=== PATIENT | female | born 1960 | race Caucasian/White ===

== ENCOUNTER → 2016-05-03 | Outpatient (CLI) | payer MEDICARE ==
[~2016-05-03] MED LIST: AMIT25TA PO; AMIT50TA PO; ATROPINE SULF 1MG/10ML SYRINGE (J0461) As Ordered ONE; CELE-19 PO; CYCL5TA PO; DAILTAB49 PO; DEPA1TAB PO; DEPA500T2 PO; DHEA50TA PO; GREE250C PO; IBUP800T23 PO; IBUP80TA PO; ISOVUE-M 300 61% 15ML VIAL (Q9967) As Ordered ONE; LIDOCAINE 1% SDV INJ 30 ML VIAL As Ordered ONE; MOBI7.5T10 PO; NEPHTAB PO; TIZA2CAP3 PO; TOPA25TA10 PO; methylPREDNISolone SUSP 40 MG/ML (DEPO-medrol) VIAL (J1030) As Ordered ONE
--- NOTE | 2016-05-03 11:37 | REP ---
Partial cervical spine series: Two views. History: Pain. Injection procedure. 14 seconds of fluoroscopy time is reported. Findings: A sequence of three fluoroscopically obtained last minute hold spot radiographs are presented documenting needle position and contrast injection associated with cervical epidural injection procedure. The patient is status post ventral discectomy and fusion plating. Signed by Rian Johnson MD 05/03/2016 02:24 P
--- NOTE | 2016-05-08 00:28 | ECWPNPC ---
PATIENT NAME: BREEZY REDDY : 1960 GENDER: FEMALE VISIT DATE: 05/03/2016 DISCHARGE DATE: 05/03/16 1049 VISIT LOCKED DATE TIME: PHYSICIAN: LATIA LOPEZ RESOURCE: LATIA LOPEZ REASON FOR APPOINTMENT 1. CERVICAL EPIDURAL HISTORY OF PRESENT ILLNESS HISTORY OF PRESENT ILLNESS: PAIN THE PATIENT DESCRIBES THE PAIN... FALL RISK SCREENING: SCREENING :NO FALLS IN THE PAST YEAR CURRENT MEDICATIONS TAKING MULTIVITAMIN 1 CAP(S) ORALLY DAILY TAKING GREEN TEA 400 MG CAPSULE ORALLY BID TAKING IBUPROFEN 800 MG TABLET 1 TABLET WITH FOOD ORALLY THREE TIMES A DAY FOR PAIN TAKING TIZANIDINE HCL 4 MG TABLET 1 TABLET ORALLY TID NEEDED FOR SPASMS AND PAIN MDD3 TAKING AMITRIPTYLINE HCL 50 MG TABLET 1 TABLET ORALLY EVERY 8 HRS NEEDED FOR PAIN MDD2 TAKING GABAPENTIN 300 MG CAPSULE 1 CAPSULE ORALLY BEFORE BEDTIME FOR PAIN NOT-TAKING DEPAKOTE ER 500 MG TABLET EXTENDED RELEASE 24 HOUR ORALLY BID PAST MEDICAL HISTORY MIGRANES ALLERGIES PENICILLIN (FOR ALLERGIES USE ONLY): RASH SOCIAL HISTORY GENERAL: TOBACCO USE ARE YOU A:NONSMOKER LEARNING BARRIERS / SPECIAL NEEDS ORIENTED TO PLAN OF CARE: PATIENT, PAIN MANAGEMENT PATIENT, ORIENTED TO PLAN OF CARE: PATIENT, PAIN MANAGEMENT PATIENT. NEW PATIENT PAIN DIARY TODAY'S VISITNOTES FROM 0-10, WHAT LEVEL IS YOUR PAIN TODAY?0 PAIN CLINIC PFS, CLERGY, PUBLIC HEALTH REFERRALS PFS REFERRAL NEEDED?NO CLERGY REFERRAL NEEDED?NO PUBLIC HEALTH REFERRAL NEEDED?NO WAS THE PROVIDER NOTIFIED OF ANY PERTINENT INFO?NO PFS REFERRAL NEEDED?NO CLERGY REFERRAL NEEDED?NO PUBLIC HEALTH REFERRAL NEEDED?NO WAS THE PROVIDER NOTIFIED OF ANY PERTINENT INFO?NO REVIEW OF SYSTEMS CONSTITUTIONAL: ANY CHANGE IN YOUR MEDICAL CONDITION? NO . CHILLS NO . FEVER NO . INFECTION: DO YOU HAVE NEW INFECTIONS? NO . DO YOU HAVE HISTORY OF MRSA? NO . MUSCULOSKELETAL: ANY NEW PATTERNS OF PAIN OR NUMBNESS? NO . GASTROENTEROLOGY: ANY NEW CHANGE IN BOWEL CONTROL? NO . GENITOURINARY: ANY NEW CHANGE IN BLADDER CONTROL? NO . IS THERE A CHANCE YOU COULD BE ? NO . HEMATOLOGY/LYMPH: DO YOU TAKE ANY BLOOD THINNERS? (FOR EXAMPLE- COUMADIN, PLAVIX, AGGRENOX, PLATEL, PRADAXA, OR XARELTO) NO . WHEN WAS YOUR LAST DOSE? DATE: TIME: . NEUROLOGY: HAVE YOU FALLEN IN THE PAST 6 MONTHS? NO . ANY NEW EXTREMITY NUMBNESS OR WEAKNESS? NO . CARDIOLOGY: DO YOU HAVE A PACEMAKER OR DEFIBRILLATOR? NO . RESPIRATORY: HAVE YOU BEEN SICK IN THE PAST WEEK? NO . FEVER NO . FLU LIKE SYMPTOMS? NO . COUGH NO . INTEGUMENTARY: DO YOU HAVE ANY RASHES OR OPEN SORES? NO . ALLERGIC/IMMUNO: ARE YOU ALLERGIC TO SHELLFISH OR IV DYE? NO . ANY NEW ALLERGIES? NO . PSYCHIATRIC: DO YOU HAVE THOUGHTS OF HURTING YOURSELF OR SOMEONE ELSE? NO . ARE YOU ABUSED, NEGLECTED, OR IN AN UNSAFE ENVIRONMENT? NO . ENDOCRINOLOGY: ARE YOU DIABETIC? NO . OTHER: DO YOU NEED ANY PRESCRIPTIONS? NO . IF YES, PLEASE LIST: ____ . ANY NEW PROBLEMS WITH YOUR MEDICATIONS? NO . WHEN DID YOU LAST EAT? ____05/02/16@2100 . WHEN DID YOU LAST DRINK? ____05/02/16@2100 . WHAT DID YOU LAST DRINK? ____WATER . NAME OF PERSON DRIVING YOU HOME? ____RADHA SELF . DO YOU HAVE ANY OTHER QUESTIONS OR CONCERNS NO . REVIEWED BY: PROVIDER: . VITAL SIGNS WT 198 LBS, HT 66 IN, BMI 31.95 INDEX, BP 182/89 MM HG, REPEAT BP 149/83 MM HG, HR 91 /MIN, RR 18 /MIN, TEMP 96.4 F, OXYGEN SAT % 99, NA INITIALS MP, REVIEWED BY: VD. ASSESSMENTS CERVICAL DISC DISORDER WITH RADICULOPATHY, CERVICOTHORACIC REGION - M50.13 (PRIMARY) PROCEDURES PN CERVICAL EPIDURAL PRE PROCEDURE DIAGNOSIS CERVICAL POST LAMINECTOMY PAIN SYNDROME POST PROCEDURE DIAGNOSIS CERVICAL POST LAMINECTOMY PAIN SYNDROME PROCEDURE CERVICAL EPIDURAL STEROID INJECTION UNDER FLUOROSCOPIC GUIDANCE SURGEON DR. LATIA LOPEZ OCEANOGRAPHER ASSISTANT NONE ANESTHESIA LOCAL PRE PROCEDURE NOTE THE PATIENT HAS A HISTORY OF CHRONIC CERVICAL PAIN. I EVALUATE THE PATIENT AND REVIEWED THE CHART. I WENT OVER THE RISKS, ALTERNATIVES, AND BENEFITS ASSOCIATED WITH THIS PROCEDURE. THE PATIENT WOULD LIKE TO PROCEED AND GIVE CONSENT TO PERFORMED THE PROCEDURE. THE PATIENT DENIES UNEXPLAINABLE WEIGHT LOSS, FEVER, CHILLS, OR NEW CHANGES IN URINARY OR BOWEL CONTROL DESCRIPTION OF PROCEDURE THE PATIENT WAS BROUGHT TO THE PROCEDURE ROOM AND PLACED IN THE PRONE POSITION. THE CERVICOTHORACIC AREA WAS CLEANED WITH BETADINE SOLUTION AND DRAPED ASEPTICALLY. THE PROCEDURE WAS DONE UNDER STERILE CONDITIONS. I CHECKED LATERALITY AND THE LEVEL WHERE THE PROCEDURE WAS GOING TO BE PERFORMED WITH THE PATIENT AND THE SUPPORTING STAFF AT THE MOMENT OF THE TIME OUT IN THE PROCEDURE ROOM. UNDER FLUOROSCOPIC GUIDANCE, THE TARGET WAS SELECTED AT THE INTERLAMINAR LEVEL OF C7-T1. LIDOCAINE WAS USED TO NUMB THE SKIN AND THE SUBCUTANEOUS TISSUE BELOW IT. EPIDURAL TUOHY NEEDLE 17-GAUGE WAS ADVANCED UNDER FLUOROSCOPIC GUIDANCE AND FOLLOWING PATIENT FEEDBACK UNTIL THE EPIDURAL SPACE WAS REACHED 6 CM DEEP INTO THE SKIN BY THE LOSS OF RESISTANCE TECHNIQUE. ISOVUE M DYE 30%, 0.25 ML, WAS INJECTED SHOWING ADEQUATE SPREAD OF THE DYE. THEN, A SOLUTION OF 3 ML OF NORMAL SALINE WITH DEPO-MEDROL 60 MG WAS INJECTED SLOWLY FOLLOWING PATIENT FEEDBACK. THERE WAS NO EVIDENCE OF BLOOD, PARESTHESIA OR CEREBROSPINAL FLUID DURING THE PROCEDURE. THE PATIENT WAS SENT TO THE RECOVERY ROOM. THE PATIENT WAS MOVING THE EXTREMITIES AND DOING WELL. THERE WAS NO COMPLICATION DURING THE PROCEDURE. FLUOROSCOPY TIME WAS 14 SECONDS POST PROCEDURE NOTE THE PATIENT WILL BE SEEN IN A FOLLOW UP IN THE NEXT FEW WEEKS. INSTRUCTIONS WERE GIVEN, QUESTIONS WERE ANSWERED, AND THE PATIENT EXPRESSED UNDERSTANDING AND AGREES WITH THE PLAN. I, NAVARRO GRACIA, DOCUMENTED THE ABOVE INFORMATION ACTING A SCRIBE FOR DR. LOPEZ. I, DR. LOPEZ, HAVE REVIEWED THE ABOVE DOCUMENT, SCRIBED BY NAVARRO GRACIA, AND I VERIFY THAT IT IS ACCURATE DIAGNOSTIC IMAGING [facility] FLUORO GUIDE SPINE INJECTION (PAIN)[id number] PROCEDURE CODES 89644 CERVICAL/THORACIC W/ IMAGING 6045F RADXPS IN END [id number] PXD FOLLOW UP 3 WEEKS ELECTRONICALLY SIGNED BY LATIA LOPEZ MD ON 05/07/2016 AT 08:26 PM EST DISCLAIMER : THIS IS A VISIT SUMMARY EXTRACTED FROM THE [employer] CHART. IT IS NOT A COPY OF THE [employer] PROGRESS NOTE. MTDD
== END ==
LOC: M PAIN 09:10
PROVIDERS: ATTEND Anesthesiology
DX: G89.29 Other chronic pain (principal); M50.13 Cervical disc disorder with radiculopathy, cervicothoracic region; G43.909 Migraine, unspecified, not intractable, without status migrainosus; Z79.899 Other long term (current) drug therapy; Z88.0 Allergy status to penicillin
CPT/HCPCS: 62321; J1030; Q9967

== ENCOUNTER → 2016-10-06 | Outpatient (CLI) | payer MEDICARE ==
[~2016-10-06] MED LIST changes: -ATROPINE SULF 1MG/10ML SYRINGE (J0461) As Ordered ONE; -CELE-19 PO; +CELE1CAP4 PO; +IBUP1TAB7 PO; -IBUP800T23 PO; -ISOVUE-M 300 61% 15ML VIAL (Q9967) As Ordered ONE; -LIDOCAINE 1% SDV INJ 30 ML VIAL As Ordered ONE; +MOBI4TAB PO; -MOBI7.5T10 PO; +TOPA1TAB PO; -TOPA25TA10 PO; -methylPREDNISolone SUSP 40 MG/ML (DEPO-medrol) VIAL (J1030) As Ordered ONE
--- NOTE | 2016-10-17 00:47 | ECWPNPC ---
PATIENT NAME: BREEZY REDDY : 1960 GENDER: FEMALE VISIT DATE: 10/06/2016 DISCHARGE DATE: 10/06/16 1538 VISIT LOCKED DATE TIME: PHYSICIAN: LATIA LOPEZ RESOURCE: LATIA LOPEZ REASON FOR APPOINTMENT 1. NECK PAIN HISTORY OF PRESENT ILLNESS HISTORY OF PRESENT ILLNESS: PAIN THE PATIENT DESCRIBES THE PAIN... 56 YEAR OLD FEMALE PATIENT WITH HISTORY OF CHRONIC NECK PAIN. PATIENT DESCRIBES THE PAIN BURNING, TENDER, SORE, AND HAVING IT ALL THE TIME WITH A PAIN SCORE OF 9/10. PATIENT RECEIVED A CERVICAL EPIDURAL ON 05/03/16 AND REPORTS HAVING OVER 50% RELIEF FROM PAIN AND INCREASED MOBILITY AND FUNCTIONALITY UNTIL THE END OF JULY. AT THIS TIME THE PATIENT STATES SHE IS READY FOR ANOTHER INJECTION HER ARMS AND HANDS ARE GOING NUMB AND HAVE A TINGLY SENSATION. CURRENTLY THE PATIENT IS USING IBUPROFEN, GABAPENTIN, AMITRIPTYLINE, AND TIZANIDINE TO AID IN PAIN RELIEF. PATIENT DENIES UNEXPLAINABLE WEIGHT LOSS, FEVER, CHILLS, NEW CHANGES ON HER URINARY OR BOWEL CONTROL. FALL RISK SCREENING: SCREENING :NO FALLS IN THE PAST YEAR CURRENT MEDICATIONS TAKING MULTIVITAMIN 1 CAP(S) ORALLY DAILY TAKING IBUPROFEN 800 MG TABLET 1 TABLET WITH FOOD ORALLY THREE TIMES A DAY FOR PAIN TAKING GABAPENTIN 300 MG CAPSULE 1 CAPSULE ORALLY BEFORE BEDTIME FOR PAIN TAKING AMITRIPTYLINE HCL 50 MG TABLET 1 TABLET ORALLY EVERY 8 HRS NEEDED FOR PAIN MDD2 TAKING TIZANIDINE HCL 4 MG TABLET 1 TABLET ORALLY TID NEEDED FOR SPASMS AND PAIN MDD3 DISCONTINUED GREEN TEA 400 MG CAPSULE ORALLY BID DISCONTINUED DEPAKOTE ER 500 MG TABLET EXTENDED RELEASE 24 HOUR ORALLY BID MEDICATION LIST REVIEWED AND RECONCILED WITH THE PATIENT PAST MEDICAL HISTORY MIGRANES ALLERGIES PENICILLIN (FOR ALLERGIES USE ONLY): RASH REVIEW OF SYSTEMS REVIEWED BY: PROVIDER: LATIA LOPEZ MD . CONSTITUTIONAL: ANY CHANGE IN YOUR MEDICAL CONDITION? NO . CHILLS NO . FEVER NO . INFECTION: DO YOU HAVE NEW INFECTIONS? NO . DO YOU HAVE HISTORY OF MRSA? NO . MUSCULOSKELETAL: ANY NEW PATTERNS OF PAIN OR NUMBNESS? NO . GASTROENTEROLOGY: ANY NEW CHANGE IN BOWEL CONTROL? NO . GENITOURINARY: ANY NEW CHANGE IN BLADDER CONTROL? NO . IS THERE A CHANCE YOU COULD BE ? NO . HEMATOLOGY/LYMPH: DO YOU TAKE ANY BLOOD THINNERS? (FOR EXAMPLE- COUMADIN, PLAVIX, AGGRENOX, PLATEL, PRADAXA, OR XARELTO) NO . WHEN WAS YOUR LAST DOSE? DATE: TIME: . NEUROLOGY: HAVE YOU FALLEN IN THE PAST 6 MONTHS? NO . ANY NEW EXTREMITY NUMBNESS OR WEAKNESS? NO . CARDIOLOGY: DO YOU HAVE A PACEMAKER OR DEFIBRILLATOR? NO . RESPIRATORY: HAVE YOU BEEN SICK IN THE PAST WEEK? NO . FEVER NO . FLU LIKE SYMPTOMS? NO . COUGH NO . INTEGUMENTARY: DO YOU HAVE ANY RASHES OR OPEN SORES? NO . ALLERGIC/IMMUNO: ARE YOU ALLERGIC TO SHELLFISH OR IV DYE? NO . ANY NEW ALLERGIES? NO . PSYCHIATRIC: DO YOU HAVE THOUGHTS OF HURTING YOURSELF OR SOMEONE ELSE? NO . ARE YOU ABUSED, NEGLECTED, OR IN AN UNSAFE ENVIRONMENT? NO . ENDOCRINOLOGY: ARE YOU DIABETIC? NO . OTHER: DO YOU NEED ANY PRESCRIPTIONS? NO . IF YES, PLEASE LIST: ____ . ANY NEW PROBLEMS WITH YOUR MEDICATIONS? NO . WHEN DID YOU LAST EAT? ____ . WHEN DID YOU LAST DRINK? ____ . WHAT DID YOU LAST DRINK? ____ . NAME OF PERSON DRIVING YOU HOME? ____ . DO YOU HAVE ANY OTHER QUESTIONS OR CONCERNS NO . VITAL SIGNS WT 206.2 LBS, HT 66 IN, BMI 33.28 INDEX, BP 143/89 MM HG, HR 58 /MIN, RR 16 /MIN, TEMP 97.4 F, OXYGEN SAT % 99%, NA INITIALS SC 14:36, REVIEWED BY: CONCHIS. EXAMINATION : PATIENT IS ALERT O X 3 AND COOPERATIVE. TENDERNESS IN THE CERVICAL AREA AND TOWARDS THE RIGHT SIDE OF THE SHOULDER. RIGHT ARM IS WEAKER THAN THE LEFT ARM. MRI DONE ON MAY 2014 SHOWS POST LAMINECTOMY CHANGES. ASSESSMENTS POSTLAMINECTOMY SYNDROME, NOT ELSEWHERE CLASSIFIED - M96.1 (PRIMARY) TREATMENT POSTLAMINECTOMY SYNDROME, NOT ELSEWHERE CLASSIFIED REFILL IBUPROFEN TABLET, 800 MG, 1 TABLET WITH FOOD, ORALLY, THREE TIMES A DAY FOR PAIN, 30 DAY(S), 60, REFILLS 2 REFILL GABAPENTIN CAPSULE, 300 MG, 1 CAPSULE, ORALLY, BEFORE BEDTIME FOR PAIN, 30 DAY(S), 30, REFILLS 2 REFILL AMITRIPTYLINE HCL TABLET, 50 MG, 1 TABLET, ORALLY, EVERY 8 HRS NEEDED FOR PAIN MDD2, 30 DAY(S), 60, REFILLS 2 REFILL TIZANIDINE HCL CAPSULE, 6 MG, 1 TABLET, ORALLY, TID NEEDED FOR SPASMS AND PAIN MDD3, 30 DAY(S), 90, REFILLS 2 NOTES: CERVICAL EPIDURAL INJECTION MATERIAL WAS PRINTED. CLINICAL NOTES: WE DISCUSSED SEVERAL ISSUES WITH MRS. REDDY' PAIN MANAGEMENT CASE. AT THIS TIME THE PATIENT WILL CONTINUE WITH THE SAME MEDICATION MANAGEMENT BEFORE. PATIENT WAS REMINDED OF THE SIDE EFFECTS OF USING IBUPROFEN AND AMITRIPTYLINE TOGETHER. PATIENT WAS ADVISED TO STOP THE MEDICATION IF SHE HAD ANY ADVERSE SIDE EFFECTS. I WOULD LIKE TO MOVE FORWARD WITH ANOTHER CERVICAL EPIDURAL THE PATIENT HAD LONG LASTING RELIEF FROM IT. WE DISCUSSED THE RISKS, BENENFITS, AND ALTNERATIVES OF THE INJECTION AND THE PATIENT WOULD LIKE TO PROCEED. INSTRUCTIONS WERE GIVEN, QUESTIONS WERE ANSWERED, PATIENT REPORTS UNDERSTANDING AND AGREES WITH THE PLAN. I, NAVARRO GRACIA, DOCUMENTED THE ABOVE INFORMATION ACTING A SCRIBE FOR DR. LOPEZ. I HAVE REVIEWED THE ABOVE DOCUMENT, WRITTEN BY NAVARRO MUÑOZIBMalena AND I VERIFY THAT IT IS ACCURATE. PROCEDURE CODES FA211 ESTABILISHED PATIENT [facility] CHARGE G8427 DOC MEDS VERIFIED W/PT OR RE G8730 PAIN ASSESS POS TOOL F/U PLAN DOC DISPOSITION & COMMUNICATION FOLLOW UP JUDAH AFTER APPROVAL ELECTRONICALLY SIGNED BY LATIA LOPEZ MD ON 10/16/2016 AT 08:32 PM EDT DISCLAIMER : THIS IS A VISIT SUMMARY EXTRACTED FROM THE [employer] CHART. IT IS NOT A COPY OF THE [employer] PROGRESS NOTE. MTDD
== END ==
LOC: M PAIN 14:20
PROVIDERS: ATTEND Anesthesiology
DX: M96.1 Postlaminectomy syndrome, not elsewhere classified (principal); G43.909 Migraine, unspecified, not intractable, without status migrainosus; Z88.0 Allergy status to penicillin; Z79.1 Long term (current) use of non-steroidal anti-inflammatories (NSAID); Z79.899 Other long term (current) drug therapy

== ENCOUNTER → 2016-10-31 | Outpatient (CLI) | payer MEDICARE ==
[~2016-10-31] MED LIST changes: +ISOVUE-M 300 61% 15ML VIAL (Q9967) As Ordered ONE; +LIDOCAINE 1% SDV INJ 30 ML VIAL As Ordered ONE; +methylPREDNISolone SUSP 40 MG/ML (DEPO-medrol) VIAL (J1030) As Ordered ONE
--- NOTE | 2016-10-31 13:51 | REP ---
FLUORO GUIDED SPINAL INJECTION: The images were reviewed with Dr. Reagan. The patient has a history of neck pain. The portable C-arm is provided in the OR for Dr. Weaver for fluoroscopic guidance. One intraoperative fluoro spot films was obtained for needle placement verification for cervical epidural injection. The film is on the PACS system and is available for review. 6 seconds of fluoroscopy time was utilized for this procedure. Reviewed by AUDRA Webber 10/31/2016 03:02 PEdited and Signed by Davi Reagan MD 10/31/2016 07:16 P
--- NOTE | 2016-11-15 01:28 | ECWPNPC ---
PATIENT NAME: BREEZY REDDY : 1960 GENDER: FEMALE VISIT DATE: 10/31/2016 DISCHARGE DATE: 10/31/16 1023 VISIT LOCKED DATE TIME: PHYSICIAN: LATIA LOPEZ RESOURCE: LATIA LOPEZ REASON FOR APPOINTMENT 1. JUDAH HISTORY OF PRESENT ILLNESS HISTORY OF PRESENT ILLNESS: PAIN THE PATIENT DESCRIBES THE PAIN... FALL RISK SCREENING: SCREENING :NO FALLS IN THE PAST YEAR CURRENT MEDICATIONS TAKING MULTIVITAMIN 1 CAP(S) ORALLY DAILY, NOTES: 10/30/16 0800 TAKING IBUPROFEN 800 MG TABLET 1 TABLET WITH FOOD ORALLY THREE TIMES A DAY FOR PAIN, NOTES: 10/31/16 0530 TAKING GABAPENTIN 300 MG CAPSULE 1 CAPSULE ORALLY BEFORE BEDTIME FOR PAIN, NOTES: 10/30/162129 TAKING AMITRIPTYLINE HCL 50 MG TABLET 1 TABLET ORALLY EVERY 8 HRS NEEDED FOR PAIN MDD2, NOTES: 10/30/162129 TAKING TIZANIDINE HCL 6 MG CAPSULE 1 TABLET ORALLY TID NEEDED FOR SPASMS AND PAIN MDD3, NOTES: 10/30/162129 MEDICATION LIST REVIEWED AND RECONCILED WITH THE PATIENT PAST MEDICAL HISTORY MIGRANES ALLERGIES PENICILLIN (FOR ALLERGIES USE ONLY): RASH REVIEW OF SYSTEMS REVIEWED BY: PROVIDER: . CONSTITUTIONAL: ANY CHANGE IN YOUR MEDICAL CONDITION? NO . CHILLS NO . FEVER NO . INFECTION: DO YOU HAVE NEW INFECTIONS? NO . DO YOU HAVE HISTORY OF MRSA? NO . MUSCULOSKELETAL: ANY NEW PATTERNS OF PAIN OR NUMBNESS? NO . GASTROENTEROLOGY: ANY NEW CHANGE IN BOWEL CONTROL? NO . GENITOURINARY: ANY NEW CHANGE IN BLADDER CONTROL? NO . IS THERE A CHANCE YOU COULD BE ? NO . HEMATOLOGY/LYMPH: DO YOU TAKE ANY BLOOD THINNERS? (FOR EXAMPLE- COUMADIN, PLAVIX, AGGRENOX, PLATEL, PRADAXA, OR XARELTO) NO . WHEN WAS YOUR LAST DOSE? DATE: TIME: . NEUROLOGY: HAVE YOU FALLEN IN THE PAST 6 MONTHS? NO . ANY NEW EXTREMITY NUMBNESS OR WEAKNESS? NO . CARDIOLOGY: DO YOU HAVE A PACEMAKER OR DEFIBRILLATOR? NO . RESPIRATORY: HAVE YOU BEEN SICK IN THE PAST WEEK? NO . FEVER NO . FLU LIKE SYMPTOMS? NO . COUGH NO . INTEGUMENTARY: DO YOU HAVE ANY RASHES OR OPEN SORES? NO . ALLERGIC/IMMUNO: ARE YOU ALLERGIC TO SHELLFISH OR IV DYE? NO . ANY NEW ALLERGIES? NO . PSYCHIATRIC: DO YOU HAVE THOUGHTS OF HURTING YOURSELF OR SOMEONE ELSE? NO . ARE YOU ABUSED, NEGLECTED, OR IN AN UNSAFE ENVIRONMENT? NO . ENDOCRINOLOGY: ARE YOU DIABETIC? NO . OTHER: DO YOU NEED ANY PRESCRIPTIONS? YES . IF YES, PLEASE LIST: ____TIZANIDINE . ANY NEW PROBLEMS WITH YOUR MEDICATIONS? NO . WHEN DID YOU LAST EAT? ____10/30/162129 . WHEN DID YOU LAST DRINK? ____10/30/162129 . WHAT DID YOU LAST DRINK? ____WATER . NAME OF PERSON DRIVING YOU HOME? ____SUE ARAMIS . DO YOU HAVE ANY OTHER QUESTIONS OR CONCERNS NO . VITAL SIGNS WT 200.0 LBS, HT 66 IN, BMI 32.28 INDEX, BP 150/87 MM HG, HR 68 /MIN, RR 16 /MIN, TEMP 97.8 F, OXYGEN SAT % 99%, SAFE IN ENV? (Y/N) YES, NA INITIALS [id number], REVIEWED BY: MARSHA. ASSESSMENTS CERVICAL DISC DISORDER WITH RADICULOPATHY, CERVICOTHORACIC REGION - M50.13 (PRIMARY) TREATMENT OTHERS REFILL TIZANIDINE HCL CAPSULE, 6 MG, 1 TABLET, ORALLY, BEFORE BEDTIME MAY REPEAT IN 5 HRS MDD2, 30 DAY(S), 50, REFILLS 2, NOTES: 10/30/162129 PROCEDURES PN CERVICAL EPIDURAL PRE PROCEDURE DIAGNOSIS CERVICAL POST LAMINECTOMY PAIN SYNDROME POST PROCEDURE DIAGNOSIS CERVICAL POST LAMINECTOMY PAIN SYNDROME PROCEDURE CERVICAL EPIDURAL STEROID INJECTION UNDER FLUOROSCOPIC GUIDANCE SURGEON DR. LATIA LOPEZ REGULATORY ANALYST NONE ANESTHESIA LOCAL PRE PROCEDURE NOTE THE PATIENT HAS A HISTORY OF CHRONIC CERVICAL PAIN. I EVALUATE THE PATIENT AND REVIEWED THE CHART. I WENT OVER THE RISKS, ALTERNATIVES, AND BENEFITS ASSOCIATED WITH THIS PROCEDURE. THE PATIENT WOULD LIKE TO PROCEED AND GIVE CONSENT TO PERFORMED THE PROCEDURE. THE PATIENT DENIES UNEXPLAINABLE WEIGHT LOSS, FEVER, CHILLS, OR NEW CHANGES IN URINARY OR BOWEL CONTROL DESCRIPTION OF PROCEDURE THE PATIENT WAS BROUGHT TO THE PROCEDURE ROOM AND PLACED IN THE PRONE POSITION. THE CERVICOTHORACIC AREA WAS CLEANED WITH BETADINE SOLUTION AND DRAPED ASEPTICALLY. THE PROCEDURE WAS DONE UNDER STERILE CONDITIONS. I CHECKED LATERALITY AND THE LEVEL WHERE THE PROCEDURE WAS GOING TO BE PERFORMED WITH THE PATIENT AND THE SUPPORTING STAFF AT THE MOMENT OF THE TIME OUT IN THE PROCEDURE ROOM. UNDER FLUOROSCOPIC GUIDANCE, THE TARGET WAS SELECTED AT THE INTERLAMINAR LEVEL OF C7-T1. LIDOCAINE WAS USED TO NUMB THE SKIN AND THE SUBCUTANEOUS TISSUE BELOW IT. EPIDURAL TUOHY NEEDLE 17-GAUGE WAS ADVANCED UNDER FLUOROSCOPIC GUIDANCE AND FOLLOWING PATIENT FEEDBACK UNTIL THE EPIDURAL SPACE WAS REACHED 6 CM DEEP INTO THE SKIN BY THE LOSS OF RESISTANCE TECHNIQUE. ISOVUE M DYE 30%, 0.25 ML, WAS INJECTED SHOWING ADEQUATE SPREAD OF THE DYE. THEN, A SOLUTION OF 3 ML OF NORMAL SALINE WITH DEPO-MEDROL 60 MG WAS INJECTED SLOWLY FOLLOWING PATIENT FEEDBACK. THERE WAS NO EVIDENCE OF BLOOD, PARESTHESIA OR CEREBROSPINAL FLUID DURING THE PROCEDURE. THE PATIENT WAS SENT TO THE RECOVERY ROOM. THE PATIENT WAS MOVING THE EXTREMITIES AND DOING WELL. THERE WAS NO COMPLICATION DURING THE PROCEDURE. FLUOROSCOPY TIME WAS 6 SECONDS POST PROCEDURE NOTE THE PATIENT WILL BE SEEN IN A FOLLOW UP IN THE NEXT FEW WEEKS. INSTRUCTIONS WERE GIVEN, QUESTIONS WERE ANSWERED, AND THE PATIENT EXPRESSED UNDERSTANDING AND AGREES WITH THE PLAN. I, NAVARRO GRACIA, DOCUMENTED THE ABOVE INFORMATION ACTING A SCRIBE FOR DR. LOPEZ. I HAVE REVIEWED THE ABOVE DOCUMENT, WRITTEN BY NAVARRO GRACIA SCRIBE AND I VERIFY THAT IT IS ACCURATE DIAGNOSTIC IMAGING [facility] FLUORO GUIDE SPINE INJECTION (PAIN)[id number] PROCEDURE CODES 36202 CERVICAL/THORACIC W/ IMAGING 6045F RADXPS IN END [id number] PXD DISPOSITION & COMMUNICATION FOLLOW UP 3 WEEKS ELECTRONICALLY SIGNED BY LATIA LOPEZ MD ON 11/14/2016 AT 07:07 PM EDT DISCLAIMER : THIS IS A VISIT SUMMARY EXTRACTED FROM THE [employer] CHART. IT IS NOT A COPY OF THE [employer] PROGRESS NOTE. MTDD
== END ==
LOC: M PAIN 08:40
PROVIDERS: ATTEND Anesthesiology
DX: M50.13 Cervical disc disorder with radiculopathy, cervicothoracic region (principal); G43.909 Migraine, unspecified, not intractable, without status migrainosus; Z88.0 Allergy status to penicillin; Z79.1 Long term (current) use of non-steroidal anti-inflammatories (NSAID); Z79.899 Other long term (current) drug therapy
CPT/HCPCS: 62321; J1030; Q9967

== ENCOUNTER → 2016-12-15 | Outpatient (CLI) | payer MEDICARE ==
[~2016-12-15] MED LIST changes: -ISOVUE-M 300 61% 15ML VIAL (Q9967) As Ordered ONE; -LIDOCAINE 1% SDV INJ 30 ML VIAL As Ordered ONE; -methylPREDNISolone SUSP 40 MG/ML (DEPO-medrol) VIAL (J1030) As Ordered ONE
--- NOTE | 2016-12-21 01:32 | ECWPNPC ---
PATIENT NAME: BREEZY REDDY : 1960 GENDER: FEMALE VISIT DATE: 12/15/2016 DISCHARGE DATE: 12/15/16 1217 VISIT LOCKED DATE TIME: PHYSICIAN: LATIA LOPEZ RESOURCE: LATIA LOPEZ REASON FOR APPOINTMENT 1. NECK PAIN HISTORY OF PRESENT ILLNESS HISTORY OF PRESENT ILLNESS: PAIN THE PATIENT DESCRIBES THE PAIN... 56 YEAR OLD FEMALE PATIENT WITH HISTORY OF CHRONIC NECK PAIN. PATIENT DESCRIBES THE PAIN BURNING, TENDER, SORE, AND HAVING IT ALL THE TIME WITH A PAIN SCORE OF 5/10. PATIENT RECEIVED A CERVICAL EPIDURAL ON 10/31/16 AND REPORTS HAVING OVER 50% RELIEF FROM PAIN AND INCREASED MOBILITY AND FUNCTIONALITY UNTIL THE END OF JULY. PATIENT REPORTS IT IS EASIER FOR HER TO DO EVERYDAY THINGS SINCE THE INJECTION. CURRENTLY THE PATIENT IS USING IBUPROFEN, GABAPENTIN, AMITRIPTYLINE, AND TIZANIDINE TO AID IN PAIN RELIEF. PATIENT DENIES UNEXPLAINABLE WEIGHT LOSS, FEVER, CHILLS, NEW CHANGES ON HER URINARY OR BOWEL CONTROL. FALL RISK SCREENING: SCREENING :NO FALLS IN THE PAST YEAR CURRENT MEDICATIONS TAKING MULTIVITAMIN 1 CAP(S) ORALLY DAILY TAKING IBUPROFEN 800 MG TABLET 1 TABLET WITH FOOD ORALLY THREE TIMES A DAY FOR PAIN TAKING GABAPENTIN 300 MG CAPSULE 1 CAPSULE ORALLY BEFORE BEDTIME FOR PAIN TAKING AMITRIPTYLINE HCL 50 MG TABLET 1 TABLET ORALLY EVERY 8 HRS NEEDED FOR PAIN MDD2 TAKING TIZANIDINE HCL 4 MG TABLET 1 TABLET ORALLY BEFORE BEDTIME MAY REPEAT IN 5 HRS MDD2 MEDICATION LIST REVIEWED AND RECONCILED WITH THE PATIENT PAST MEDICAL HISTORY MIGRANES ALLERGIES PENICILLIN (FOR ALLERGIES USE ONLY): RASH REVIEW OF SYSTEMS REVIEWED BY: PROVIDER: LATIA LOPEZ MD . CONSTITUTIONAL: ANY CHANGE IN YOUR MEDICAL CONDITION? NO . CHILLS NO . FEVER NO . INFECTION: DO YOU HAVE NEW INFECTIONS? NO . DO YOU HAVE HISTORY OF MRSA? NO . MUSCULOSKELETAL: ANY NEW PATTERNS OF PAIN OR NUMBNESS? NO . GASTROENTEROLOGY: ANY NEW CHANGE IN BOWEL CONTROL? NO . GENITOURINARY: ANY NEW CHANGE IN BLADDER CONTROL? NO . IS THERE A CHANCE YOU COULD BE ? NO . HEMATOLOGY/LYMPH: DO YOU TAKE ANY BLOOD THINNERS? (FOR EXAMPLE- COUMADIN, PLAVIX, AGGRENOX, PLATEL, PRADAXA, OR XARELTO) NO . WHEN WAS YOUR LAST DOSE? DATE: TIME: . NEUROLOGY: HAVE YOU FALLEN IN THE PAST 6 MONTHS? NO . ANY NEW EXTREMITY NUMBNESS OR WEAKNESS? NO . CARDIOLOGY: DO YOU HAVE A PACEMAKER OR DEFIBRILLATOR? NO . RESPIRATORY: HAVE YOU BEEN SICK IN THE PAST WEEK? NO . FEVER NO . FLU LIKE SYMPTOMS? NO . COUGH NO . INTEGUMENTARY: DO YOU HAVE ANY RASHES OR OPEN SORES? NO . ALLERGIC/IMMUNO: ARE YOU ALLERGIC TO SHELLFISH OR IV DYE? NO . ANY NEW ALLERGIES? NO . PSYCHIATRIC: DO YOU HAVE THOUGHTS OF HURTING YOURSELF OR SOMEONE ELSE? NO . ARE YOU ABUSED, NEGLECTED, OR IN AN UNSAFE ENVIRONMENT? NO . ENDOCRINOLOGY: ARE YOU DIABETIC? NO . OTHER: DO YOU NEED ANY PRESCRIPTIONS? NO . IF YES, PLEASE LIST: ____ . ANY NEW PROBLEMS WITH YOUR MEDICATIONS? NO . WHEN DID YOU LAST EAT? ____ . WHEN DID YOU LAST DRINK? ____ . WHAT DID YOU LAST DRINK? ____ . NAME OF PERSON DRIVING YOU HOME? ____ . DO YOU HAVE ANY OTHER QUESTIONS OR CONCERNS NO . VITAL SIGNS WT 200 LBS, HT 66 IN, BMI 32.28 INDEX, BP 156/91 MM HG, HR 69 /MIN, RR 16 /MIN, TEMP 98.4 F, OXYGEN SAT % 91%, NA INITIALS SC 11:00. EXAMINATION : PATIENT IS ALERT O X 3 AND COOPERATIVE. TENDERNESS IN THE CERVICAL AREA AND TOWARDS THE RIGHT SIDE OF THE SHOULDER. RIGHT ARM IS WEAKER THAN THE LEFT ARM. MRI DONE ON MAY 2014 SHOWS POST LAMINECTOMY CHANGES. ASSESSMENTS POSTLAMINECTOMY SYNDROME, NOT ELSEWHERE CLASSIFIED - M96.1 (PRIMARY) CERVICAL DISC DISORDER WITH RADICULOPATHY OF CERVICOTHORACIC REGION - M50.13 TREATMENT POSTLAMINECTOMY SYNDROME, NOT ELSEWHERE CLASSIFIED REFILL IBUPROFEN TABLET, 800 MG, 1 TABLET WITH FOOD, ORALLY, THREE TIMES A DAY FOR PAIN, 30 DAY(S), 60, REFILLS 2 REFILL GABAPENTIN CAPSULE, 300 MG, 1 CAPSULE, ORALLY, BEFORE BEDTIME FOR PAIN, 30 DAY(S), 30, REFILLS 2 REFILL AMITRIPTYLINE HCL TABLET, 50 MG, 1 TABLET, ORALLY, EVERY 8 HRS NEEDED FOR PAIN MDD2, 30 DAY(S), 60, REFILLS 2 NOTES: WE DISCUSSED SEVERAL ISSUES WITH MRS. REDDY' PAIN MANAGEMENT CASE. AT THIS TIME THE PATIENT WILL CONTINUE WITH THE SAME MEDICATION REGIME BEFORE. PATIENT IS USING THE IBUPROFEN FOR THE INFLAMMATION, GABAPENTIN FOR THE NEUROPATHIC PAIN, AND AMITRIPTYLINE AND TIZANIDINE FOR THE MUSCLE SPASMS. PATIENT REPORTS USING THE MEDICATION NEEDED. PATIENT REPORTS HAVING OVER 50% RELIEF FROM PAIN AND INCREASED MOBILITY AND FUNCTIONALITY FROM THE CERVICAL EPIDURAL DONE ON 10/31/16. WE WILL NOT HOLD ANY INTERVENTIONS AT THIS TIME. PATIENT WILL RETURN TO THE CLINIC IN 2 MONTHS. INSTRUCTIONS WERE GIVEN, QUESTIONS WERE ANSWERED, PATIENT REPORTS UNDERSTANDING AND AGREES WITH THE PLAN. I, NAVARRO GRACIA, DOCUMENTED THE ABOVE INFORMATION ACTING A SCRIBE FOR DR. LOPEZ. I HAVE REVIEWED THE ABOVE DOCUMENT, WRITTEN BY NAVARRO MUÑOZIBMalena AND I VERIFY THAT IT IS ACCURATE. OTHERS REFILL TIZANIDINE HCL TABLET, 4 MG, 1 TABLET, ORALLY, BEFORE BEDTIME MAY REPEAT IN 5 HRS MDD2, 30 DAY(S), 50, REFILLS 2 PROCEDURE CODES FA211 ESTABILISHED PATIENT [facility] FACILITY CHARGE [id number] DOC MEDS VERIFIED W/PT OR RE G7303 PAIN ASSESS POS TOOL F/U PLAN DOC DISPOSITION & COMMUNICATION FOLLOW UP 2 MONTHS ELECTRONICALLY SIGNED BY LATIA LOPEZ MD ON 12/20/2016 AT 01:34 PM EDT DISCLAIMER : THIS IS A VISIT SUMMARY EXTRACTED FROM THE [employer] CHART. IT IS NOT A COPY OF THE [employer] PROGRESS NOTE. MTDD
== END ==
LOC: M PAIN 10:30
PROVIDERS: ATTEND Anesthesiology
DX: M96.1 Postlaminectomy syndrome, not elsewhere classified (principal); M50.13 Cervical disc disorder with radiculopathy, cervicothoracic region; G43.909 Migraine, unspecified, not intractable, without status migrainosus; Z88.0 Allergy status to penicillin; Z79.1 Long term (current) use of non-steroidal anti-inflammatories (NSAID); Z79.899 Other long term (current) drug therapy

== ENCOUNTER → 2017-05-04 | Outpatient (CLI) | payer MEDICARE | LOC: M PAIN 09:00 | DX: M96.1 Postlaminectomy syndrome, not elsewhere classified (principal); M50.13 Cervical disc disorder with radiculopathy, cervicothoracic region; G89.29 Other chronic pain; Z79.899 Other long term (current) drug therapy; Z88.0 Allergy status to penicillin | CPT/HCPCS: G0463 ==

== ENCOUNTER → 2017-05-22 | Outpatient (CLI) | payer MEDICARE ==
[~2017-05-22] MED LIST changes: -AMIT25TA PO; -AMIT50TA PO; -CELE1CAP4 PO; -CYCL5TA PO; -DAILTAB49 PO; -DEPA1TAB PO; -DEPA500T2 PO; -DHEA50TA PO; -GREE250C PO; -IBUP1TAB7 PO; -IBUP80TA PO; +ISOVUE-M 300 61% 15ML VIAL (Q9967) As Ordered; +LIDOCAINE 1% SDV INJ 30 ML VIAL As Ordered; -MOBI4TAB PO; -NEPHTAB PO; -TIZA2CAP3 PO; -TOPA1TAB PO; +methylPREDNISolone SUSP 40 MG/ML (DEPO-medrol) VIAL (J1030) As Ordered
== END ==
LOC: M PAIN 14:00
DX: G89.29 Other chronic pain (principal); M50.13 Cervical disc disorder with radiculopathy, cervicothoracic region; G43.909 Migraine, unspecified, not intractable, without status migrainosus; Z88.0 Allergy status to penicillin; Z79.1 Long term (current) use of non-steroidal anti-inflammatories (NSAID); Z79.899 Other long term (current) drug therapy
CPT/HCPCS: J1030

== ENCOUNTER → 2017-06-29 | Outpatient (CLI) | payer MEDICARE | LOC: M PAIN 14:15 | DX: M50.13 Cervical disc disorder with radiculopathy, cervicothoracic region (principal); G43.909 Migraine, unspecified, not intractable, without status migrainosus; Z79.899 Other long term (current) drug therapy; Z88.0 Allergy status to penicillin; Z98.890 Other specified postprocedural states | CPT/HCPCS: G0463 ==

== ENCOUNTER → 2017-08-16 | Outpatient (CLI) | payer MEDICARE ==
[~2017-08-16] MED LIST changes: +BUPIVACAINE HCL 0.25% 10 ML VIAL As Ordered; +BUPIVACAINE HCL 0.25% 30 ML VIAL As Ordered; -ISOVUE-M 300 61% 15ML VIAL (Q9967) As Ordered; -LIDOCAINE 1% SDV INJ 30 ML VIAL As Ordered; +TRIAMCINOLONE ACETONIDE SUSP 40 MG/ML VIAL (J3301) As Ordered; -methylPREDNISolone SUSP 40 MG/ML (DEPO-medrol) VIAL (J1030) As Ordered
== END ==
LOC: M PAIN 14:00
DX: G89.29 Other chronic pain (principal); M54.2 Cervicalgia; M25.511 Pain in right shoulder; M79.1 Myalgia; G43.909 Migraine, unspecified, not intractable, without status migrainosus; Z79.899 Other long term (current) drug therapy; Z88.0 Allergy status to penicillin
CPT/HCPCS: J3301

== ENCOUNTER → 2017-09-18 | Outpatient (CLI) | payer MEDICARE | LOC: M PAIN 09:15 | DX: M79.1 Myalgia (principal); M50.13 Cervical disc disorder with radiculopathy, cervicothoracic region; G43.909 Migraine, unspecified, not intractable, without status migrainosus; Z79.899 Other long term (current) drug therapy; Z88.0 Allergy status to penicillin | CPT/HCPCS: G0463 ==

== ENCOUNTER → 2017-12-04 | Outpatient (CLI) | payer MEDICARE | LOC: M PAIN 15:15 | DX: M79.1 Myalgia (principal); M54.2 Cervicalgia; M25.511 Pain in right shoulder; G43.909 Migraine, unspecified, not intractable, without status migrainosus; Z79.899 Other long term (current) drug therapy; Z88.0 Allergy status to penicillin | CPT/HCPCS: J3301 ==

== ENCOUNTER → 2017-12-20 | Outpatient (CLI) | payer MEDICARE | LOC: M PAIN 09:15 | DX: M79.1 Myalgia (principal); M50.13 Cervical disc disorder with radiculopathy, cervicothoracic region; Z79.899 Other long term (current) drug therapy; Z88.0 Allergy status to penicillin | CPT/HCPCS: G0463 ==

== ENCOUNTER → 2018-03-21 | Outpatient (CLI) | payer MEDICARE ==
[~2018-03-21] MED LIST changes: +AMIT25TA PO; +AMIT50TA PO; -BUPIVACAINE HCL 0.25% 10 ML VIAL As Ordered; -BUPIVACAINE HCL 0.25% 30 ML VIAL As Ordered; +CELE1CAP4 PO; +CYCL5TA PO; +DAILTAB49 PO; +DEPA1TAB PO; +DEPA500T2 PO; +DHEA50TA PO; +GREE250C PO; +IBUP1TAB7 PO; +IBUP80TA PO; +MOBI4TAB PO; +NEPHTAB PO; +TIZA2CAP PO; +TOPA1TAB PO; -TRIAMCINOLONE ACETONIDE SUSP 40 MG/ML VIAL (J3301) As Ordered
--- NOTE | 2018-04-17 00:12 | ECWPNPC ---
PATIENT NAME: BREEZY REDDY : 1960 GENDER: FEMALE VISIT DATE: 03/21/2018 DISCHARGE DATE: 03/21/18 1520 VISIT LOCKED DATE TIME: PHYSICIAN: NICHOLAS SAINI RESOURCE: NICHOLAS SAINI REASON FOR APPOINTMENT 1. NECK HISTORY OF PRESENT ILLNESS HISTORY OF PRESENT ILLNESS: HERE FOR ROUTINE F/U AND MANAGEMENT OF CHRONIC NECK PAIN.PAIN HAS BEEN INCREASING OVER THE PAST MONTH.RATING PAIN VAS 8/10.HAS RESPONDED WELL TO TPI. PAIN THE PATIENT DESCRIBES THE PAIN... FALL RISK SCREENING: SCREENING :NO FALLS IN THE PAST YEAR CURRENT MEDICATIONS TAKING MULTIVITAMIN 1 CAP(S) ORALLY DAILY TAKING GABAPENTIN 300 MG CAPSULE 1 CAPSULE ORALLY BEFORE BEDTIME FOR PAIN TAKING IBUPROFEN 800 MG TABLET 1 TABLET WITH FOOD ORALLY THREE TIMES A DAY FOR PAIN TAKING AMITRIPTYLINE HCL 50 MG TABLET 1 TABLET ORALLY EVERY 8 HRS NEEDED FOR PAIN MDD2 TAKING TIZANIDINE HCL 4 MG TABLET 1-1 1/2 TAB ORALLY Q8H PRN MEDICATION LIST REVIEWED AND RECONCILED WITH THE PATIENT PAST MEDICAL HISTORY MIGRANES ALLERGIES PENICILLIN (FOR ALLERGIES USE ONLY): RASH SURGICAL HISTORY SURGURIES TO BOTH KNEES (ACL AND SCOPES) SURGURY TO RIGHT SHOULDER -ROTATOR CUFF AND REPAIR 2003 SURGURY TO NECK 2003 SOCIAL HISTORY GENERAL: TOBACCO USE ARE YOU A: NONSMOKER . RECREATIONAL DRUG USE DRUG USE?NO PROTESTANT [id number] OTHER LANGUAGE LANGUAGES SPOKEN:P[place]HTO LEARNING BARRIERS / SPECIAL NEEDS ORIENTED TO PLAN OF CARE: PATIENT, PAIN MANAGEMENT PATIENT, ORIENTED TO PLAN OF CARE: PATIENT, PAIN MANAGEMENT PATIENT. NEW PATIENT PAIN DIARY TODAY'S VISIT NOTES, FROM 0-10, WHAT LEVEL IS YOUR PAIN TODAY? 0. PAIN CLINIC PFS, CLERGY, PUBLIC HEALTH REFERRALS PFS REFERRAL NEEDED?NO CLERGY REFERRAL NEEDED?NO PUBLIC HEALTH REFERRAL NEEDED?NO WAS THE PROVIDER NOTIFIED OF ANY PERTINENT INFO?NO HAS THE PATIENT BEEN EDUCATED REGARDING HIS/HER PLAN OF CARE?YES HAS THE PATIENT BEEN EDUCATED REGARDING PAIN, THE RISK FOR PAIN, THE IMPORTANCE OF EFFECTIVE PAIN MANAGEMENT, AND THE PAIN ASSESSMENT PROCESS?YES ADVANCE DIRECTIVE ADVANCE DIRECTIVE DISCUSSED WITH PATIENT:YES HEALTH CARE PROXY DAUGHTER MAIDA REDDY [phone] REVIEWED WITH PT 11/19/17 0999 LASREVIEWED WITH PT 12/20/17 0958 LAS. HOSPITALIZATION/MAJOR DIAGNOSTIC PROCEDURE SURGERY RELATED REVIEW OF SYSTEMS REVIEWED BY: PROVIDER: NICHOLAS GARRETT . CONSTITUTIONAL: ANY CHANGE IN YOUR MEDICAL CONDITION? NO . CHILLS NO . FEVER NO . INFECTION: DO YOU HAVE NEW INFECTIONS? NO . DO YOU HAVE HISTORY OF MRSA? NO . MUSCULOSKELETAL: ANY NEW PATTERNS OF PAIN OR NUMBNESS? NO . GASTROENTEROLOGY: ANY NEW CHANGE IN BOWEL CONTROL? NO . GENITOURINARY: ANY NEW CHANGE IN BLADDER CONTROL? NO . IS THERE A CHANCE YOU COULD BE ? NO . HEMATOLOGY/LYMPH: DO YOU TAKE ANY BLOOD THINNERS? (FOR EXAMPLE- COUMADIN, PLAVIX, AGGRENOX, PLATEL, PRADAXA, OR XARELTO) NO . WHEN WAS YOUR LAST DOSE? DATE: TIME: . NEUROLOGY: HAVE YOU FALLEN IN THE PAST 6 MONTHS? NO . ANY NEW EXTREMITY NUMBNESS OR WEAKNESS? NO . CARDIOLOGY: DO YOU HAVE A PACEMAKER OR DEFIBRILLATOR? NO . RESPIRATORY: HAVE YOU BEEN SICK IN THE PAST WEEK? NO . FEVER NO . FLU LIKE SYMPTOMS? NO . COUGH NO . INTEGUMENTARY: DO YOU HAVE ANY RASHES OR OPEN SORES? NO . ALLERGIC/IMMUNO: ARE YOU ALLERGIC TO SHELLFISH OR IV DYE? NO . ANY NEW ALLERGIES? NO . PSYCHIATRIC: DO YOU HAVE THOUGHTS OF HURTING YOURSELF OR SOMEONE ELSE? NO . ARE YOU ABUSED, NEGLECTED, OR IN AN UNSAFE ENVIRONMENT? NO . ENDOCRINOLOGY: ARE YOU DIABETIC? NO . OTHER: DO YOU NEED ANY PRESCRIPTIONS? NO . IF YES, PLEASE LIST: ____ . ANY NEW PROBLEMS WITH YOUR MEDICATIONS? NO . WHEN DID YOU LAST EAT? ____ . WHEN DID YOU LAST DRINK? ____ . WHAT DID YOU LAST DRINK? ____ . NAME OF PERSON DRIVING YOU HOME? ____ . DO YOU HAVE ANY OTHER QUESTIONS OR CONCERNS NO . VITAL SIGNS WT 204.8 LBS, HT 66 IN, BMI 33.05 INDEX, BP 135/78 MM HG, HR 71 /MIN, RR 18 /MIN, TEMP 97.3 F, OXYGEN SAT % 97%, NA INITIALS SC 14:38, REVIEWED BY: EM. EXAMINATION GENERAL EXAMINATION: GENERAL APPEARANCE:UNCOMFORTABLE . NECK:LIMITED EXTENSION, LIMITED FLEXION . LUNGS:LUNG LOVING ARE CLEAR TO AUSCULTATION BILATERALLY. GOOD MOVEMENT OF AIR . HEART:S1, S2 IN A REGULAR RATE AND RHYTHM. NO SIGNIFICANT MURMURS, RUBS OR GALLOPS NOTED . CERVICALSPECIFI TRIGGER POINTS OVER RIGHT NECK/RHOMBOID REGION.PAIN IS AGGREVATED IN THIS REGION WITH ROJM NECK AND RIGHT ARM. ASSESSMENTS POSTLAMINECTOMY SYNDROME, NOT ELSEWHERE CLASSIFIED - M96.1 (PRIMARY) MYALGIA OF MUSCLE OF NECK - M79.18 TREATMENT POSTLAMINECTOMY SYNDROME, NOT ELSEWHERE CLASSIFIED NOTES: TPI NECK. PROCEDURE CODES FA211 ESTABILISHED PATIENT [facility] CHARGE DISPOSITION & COMMUNICATION FOLLOW UP POST (REASON: TPI NECK) ELECTRONICALLY SIGNED BY TAMI CORTEZ ON 04/16/2018 AT 08:24 AM EST DISCLAIMER : THIS IS A VISIT SUMMARY EXTRACTED FROM THE [email or web address] CHART. IT IS NOT A COPY OF THE [employer] PROGRESS NOTE. ANDREW
== END ==
LOC: M PAIN 14:45
PROVIDERS: ATTEND Nurse Practitioner Family
DX: M96.1 Postlaminectomy syndrome, not elsewhere classified (principal); M79.18 Myalgia, other site; G43.909 Migraine, unspecified, not intractable, without status migrainosus; Z79.899 Other long term (current) drug therapy; Z88.0 Allergy status to penicillin

== ENCOUNTER → 2018-04-23 | Outpatient (CLI) | payer MEDICARE ==
[~2018-04-23] MED LIST changes: +BUPIVACAINE HCL 0.25% 10 ML VIAL As Ordered ONE; +BUPIVACAINE HCL 0.25% 30 ML VIAL As Ordered ONE; +TRIAMCINOLONE ACETONIDE SUSP 40 MG/ML VIAL (J3301) As Ordered ONE
--- NOTE | 2018-05-06 00:35 | ECWPNPC ---
PATIENT NAME: BREEZY REDDY : 1960 GENDER: FEMALE VISIT DATE: 04/23/2018 DISCHARGE DATE: 04/23/18951 VISIT LOCKED DATE TIME: PHYSICIAN: LATIA LOPEZ MD RESOURCE: LATIA LOPEZ MD REASON FOR APPOINTMENT 1. TPI HISTORY OF PRESENT ILLNESS HISTORY OF PRESENT ILLNESS: PAIN THE PATIENT DESCRIBES THE PAIN... FALL RISK SCREENING: SCREENING :NO FALLS IN THE PAST YEAR CURRENT MEDICATIONS TAKING MULTIVITAMIN 1 CAP(S) ORALLY DAILY, NOTES: 04/23/18 TAKING GABAPENTIN 300 MG CAPSULE 1 CAPSULE ORALLY BEFORE BEDTIME FOR PAIN, NOTES: 04/22/182129 TAKING IBUPROFEN 800 MG TABLET 1 TABLET WITH FOOD ORALLY THREE TIMES A DAY FOR PAIN, NOTES: 04/22/182129 TAKING AMITRIPTYLINE HCL 50 MG TABLET 1 TABLET ORALLY EVERY 8 HRS NEEDED FOR PAIN MDD2, NOTES: 04/22/182129 TAKING TIZANIDINE HCL 4 MG TABLET 1-1 1/2 TAB ORALLY Q8H PRN, NOTES: 04/22/182129 MEDICATION LIST REVIEWED AND RECONCILED WITH THE PATIENT PAST MEDICAL HISTORY MIGRANES ALLERGIES PENICILLIN (FOR ALLERGIES USE ONLY): RASH SURGICAL HISTORY SURGURIES TO BOTH KNEES (ACL AND SCOPES) SURGURY TO RIGHT SHOULDER -ROTATOR CUFF AND REPAIR 2003 SURGURY TO NECK 2003 SOCIAL HISTORY GENERAL: TOBACCO USE ARE YOU A: NONSMOKER . RECREATIONAL DRUG USE DRUG USE?NO CONFUCIANISM [id number] OTHER LANGUAGE LANGUAGES SPOKEN:SWEDISH LEARNING BARRIERS / SPECIAL NEEDS ORIENTED TO PLAN OF CARE: PATIENT, PAIN MANAGEMENT PATIENT, ORIENTED TO PLAN OF CARE: PATIENT, PAIN MANAGEMENT PATIENT. NEW PATIENT PAIN DIARY TODAY'S VISIT NOTES, FROM 0-10, WHAT LEVEL IS YOUR PAIN TODAY? 0. PAIN CLINIC PFS, CLERGY, PUBLIC HEALTH REFERRALS PFS REFERRAL NEEDED?NO CLERGY REFERRAL NEEDED?NO PUBLIC HEALTH REFERRAL NEEDED?NO WAS THE PROVIDER NOTIFIED OF ANY PERTINENT INFO?NO HAS THE PATIENT BEEN EDUCATED REGARDING HIS/HER PLAN OF CARE?YES HAS THE PATIENT BEEN EDUCATED REGARDING PAIN, THE RISK FOR PAIN, THE IMPORTANCE OF EFFECTIVE PAIN MANAGEMENT, AND THE PAIN ASSESSMENT PROCESS?YES ADVANCE DIRECTIVE ADVANCE DIRECTIVE DISCUSSED WITH PATIENT:YES HEALTH CARE PROXY DAUGHTER MAIDA REDDY [phone] REVIEWED WITH PT 11/19/17 0945 LASREVIEWED WITH PT 12/20/17 0918 LASREVIEWED WITH PT 04/23/18 5045 LAS. HOSPITALIZATION/MAJOR DIAGNOSTIC PROCEDURE SURGERY RELATED REVIEW OF SYSTEMS REVIEWED BY: PROVIDER: . CONSTITUTIONAL: ANY CHANGE IN YOUR MEDICAL CONDITION? NO . CHILLS NO . FEVER NO . INFECTION: DO YOU HAVE NEW INFECTIONS? NO . DO YOU HAVE HISTORY OF MRSA? NO . MUSCULOSKELETAL: ANY NEW PATTERNS OF PAIN OR NUMBNESS? NO . GASTROENTEROLOGY: ANY NEW CHANGE IN BOWEL CONTROL? NO . GENITOURINARY: ANY NEW CHANGE IN BLADDER CONTROL? NO . IS THERE A CHANCE YOU COULD BE ? NO . HEMATOLOGY/LYMPH: DO YOU TAKE ANY BLOOD THINNERS? (FOR EXAMPLE- COUMADIN, PLAVIX, AGGRENOX, PLATEL, PRADAXA, OR XARELTO) NO . WHEN WAS YOUR LAST DOSE? DATE: TIME: . NEUROLOGY: HAVE YOU FALLEN IN THE PAST 12 MONTHS? NO . ANY NEW EXTREMITY NUMBNESS OR WEAKNESS? YES PT REPORTS NEW NUMBNESS/ TINGLING IN LEFT HAND, TO SEE NEURO-SURGEON TODAY ABOUT THIS, . CARDIOLOGY: DO YOU HAVE A PACEMAKER OR DEFIBRILLATOR? NO . RESPIRATORY: HAVE YOU BEEN SICK IN THE PAST WEEK? NO . FEVER NO . FLU LIKE SYMPTOMS? NO . COUGH NO . INTEGUMENTARY: DO YOU HAVE ANY RASHES OR OPEN SORES? NO . ALLERGIC/IMMUNO: ARE YOU ALLERGIC TO IV DYE? NO . ANY NEW ALLERGIES? NO . PSYCHIATRIC: DO YOU HAVE THOUGHTS OF HURTING YOURSELF OR SOMEONE ELSE? NO . ARE YOU ABUSED, NEGLECTED, OR IN AN UNSAFE ENVIRONMENT? NO . ENDOCRINOLOGY: ARE YOU DIABETIC? NO . OTHER: DO YOU NEED ANY PRESCRIPTIONS? NO . IF YES, PLEASE LIST: ____ . ANY NEW PROBLEMS WITH YOUR MEDICATIONS? NO . WHEN DID YOU LAST EAT? ____04/22/18 1930 . WHEN DID YOU LAST DRINK? ____04/23/18 0600 . WHAT DID YOU LAST DRINK? ____WATER . NAME OF PERSON DRIVING YOU HOME? ____SISTER . DO YOU HAVE ANY OTHER QUESTIONS OR CONCERNS NO . VITAL SIGNS WT 206.8 LBS, HT 66 IN, BMI 33.37 INDEX, BP 151/94 MM HG, HR 62 /MIN, RR 18 /MIN, TEMP 96.8 F, OXYGEN SAT % 99%, SAFE IN ENV? (Y/N) YES, NA INITIALS SC 08:54, REVIEWED BY: LAS. FUCHS MYALGIA, OTHER SITE - M79.18 (PRIMARY) PROCEDURES PN TRIGGER POINT INJECTION WITH STEROIDS PRE PROCEDURE DIAGNOSIS 1. MYALGIA 2. PAIN AT RIGHT NECK AREA AND RIGHT SHOULDER AREA POST PROCEDURE DIAGNOSIS 1. MYALGIA 2. PAIN AT RIGHT NECK AREA AND RIGHT SHOULDER AREA PROCEDURE TRIGGER POINT INJECTION AT RIGHT NECK AREA AND RIGHT SHOULDER AREA SURGEON DR. LATIA LOPEZ SCENIC ARTIST NONE ANESTHESIA LOCAL PRE PROCEDURE NOTE THE PATIENT HAS A HISTORY OF CHRONIC PAIN AT THE RIGHT NECK AREA AND RIGHT SHOULDER AREA. I EVALUATE THE PATIENT AND REVIEWED THE CHART. THERE IS EVIDENCE OF BANDS OF TISSUE WITH RESTRICTION OF MOVEMENT AND PRESENCE OF TRIGGER POINT AT THE AFFECTED AREA. I WENT OVER THE RISKS, ALTERNATIVES, AND BENEFITS ASSOCIATED WITH THIS PROCEDURE. THE PATIENT WOULD LIKE TO PROCEED AND GIVE CONSENT TO PERFORMED THE PROCEDURE. THE PATIENT DENIES UNEXPLAINABLE WEIGHT LOSS, FEVER, CHILLS, OR NEW CHANGES IN URINARY OR BOWEL CONTROL DESCRIPTION OF PROCEDURE THE PATIENT WAS BROUGHT TO THE PROCEDURE ROOM AND PLACED IN THE SITTING POSITION. THE AREA WAS CLEANED WITH ALCOHOL. THE PROCEDURE WAS DONE USING ASEPTIC STERILE TECHNIQUE. I CHECKED LATERALITY AND THE LEVEL WHERE THE PROCEDURE WAS GOING TO BE PERFORMED WITH THE PATIENT AND THE SUPPORTING STAFF AT THE MOMENT OF THE TIME OUT IN THE PROCEDURE ROOM. USING A 25-GAUGE NEEDLE, TRIGGER POINTS WERE INJECTED AT THE RIGHT NECK AREA AND RIGHT SHOULDER AREA WITH A TOTAL OF 40 ML OF BUPIVACAINE 0.25% AND KENALOG 40 MG. THERE WAS NO EVIDENCE OF BLOOD, PARESTHESIA OR CEREBROSPINAL FLUID DURING THE PROCEDURE. THE PATIENT WAS SENT TO THE RECOVERY ROOM. THE PATIENT WAS MOVING THE EXTREMITIES AND DOING WELL. THERE WAS NO COMPLICATION DURING THE PROCEDURE POST PROCEDURE NOTE THE PATIENT WILL BE SEEN IN A FOLLOW UP IN THE NEXT FEW WEEKS. INSTRUCTIONS WERE GIVEN, QUESTIONS WERE ANSWERED, AND THE PATIENT EXPRESSED UNDERSTANDING AND AGREES WITH THE PLAN. I, ANSHUL MISTRY, DOCUMENTED THE ABOVE INFORMATION ACTING A SCRIBE FOR DR. LOPEZ. I HAVE REVIEWED THE ABOVE DOCUMENT, WRITTEN BY ANSHUL KEITA AND I VERIFY THAT IT IS ACCURATE. PROCEDURE CODES 20335 INJ TRIGGER POINT 04/03 [facility] [place] COMMUNICATION FOLLOW UP 3 WEEKS ELECTRONICALLY SIGNED BY LATIA LOPEZ MD, MD ON 05/05/2018 AT 06:21 PM EST DISCLAIMER : THIS IS A VISIT SUMMARY EXTRACTED FROM THE [employer] CHART. IT IS NOT A COPY OF THE [employer] PROGRESS NOTE. MTDD
== END ==
LOC: M PAIN 08:30
PROVIDERS: ATTEND Anesthesiology
DX: M79.18 Myalgia, other site (principal); M54.2 Cervicalgia; M25.511 Pain in right shoulder; G43.909 Migraine, unspecified, not intractable, without status migrainosus; Z79.899 Other long term (current) drug therapy; Z88.0 Allergy status to penicillin
CPT/HCPCS: 20552; J3301

== ENCOUNTER → 2018-06-19 | Outpatient (CLI) | payer MEDICARE ==
[~2018-06-19] MED LIST changes: -BUPIVACAINE HCL 0.25% 10 ML VIAL As Ordered ONE; -BUPIVACAINE HCL 0.25% 30 ML VIAL As Ordered ONE; -TRIAMCINOLONE ACETONIDE SUSP 40 MG/ML VIAL (J3301) As Ordered ONE
--- NOTE | 2018-07-04 01:16 | ECWPNPC ---
PATIENT NAME: BREEZY REDDY : 1960 GENDER: FEMALE VISIT DATE: 06/19/2018 DISCHARGE DATE: 06/19/18 1325 VISIT LOCKED DATE TIME: PHYSICIAN: NICHOLAS SAINI RESOURCE: NICHOLAS SAINI REASON FOR APPOINTMENT 1. POST PROC HISTORY OF PRESENT ILLNESS HISTORY OF PRESENT ILLNESS: HERE FOR POST PROCEDURE F/U.HAD TRIGGER POINTS RIGHT NECK AND SHOULDER ON 04-23-18.REPORTING >50% IMPROVEMENT IN PAIN POST PROCEDURE.RATING PAIN VAS 7/10.REPORTING IMPROVED SLEEP POST PROCEDURE.HISTORY TWO CERVICAL SURGERIES /FUSION LAST ONE DONE IN 2017.SHE WILL BE SEEING SURGEON ,DR. MCKEON SOON SHE HAS BEEN EXPERIENCING NUMBNESS IN LEFT PINKY,RING AND THUMB OVER THE PAST 3 MONTHS.PAIN HAS GRADUALLY RETURNED TO BASELINE. PAIN THE PATIENT DESCRIBES THE PAIN... THE PATIENT DESCRIBES THE PAIN... FALL RISK SCREENING: SCREENING : NO FALLS IN THE PAST YEAR. CURRENT MEDICATIONS TAKING ZOLPIDEM TARTRATE 10 MG TABLET 1 TABLET AT BEDTIME NEEDED ORALLY ONCE A DAY TAKING MULTIVITAMIN 1 CAP(S) ORALLY DAILY, NOTES: 04/23/18 TAKING GABAPENTIN 300 MG CAPSULE 1 CAPSULE ORALLY BEFORE BEDTIME FOR PAIN, NOTES: 04/22/182129 TAKING IBUPROFEN 800 MG TABLET 1 TABLET WITH FOOD ORALLY THREE TIMES A DAY FOR PAIN, NOTES: 04/22/182129 TAKING AMITRIPTYLINE HCL 50 MG TABLET 1 TABLET ORALLY EVERY 8 HRS NEEDED FOR PAIN MDD2, NOTES: 04/22/182129 TAKING TIZANIDINE HCL 4 MG TABLET 1-1 1/2 TAB ORALLY Q8H PRN, NOTES: 04/22/182129 MEDICATION LIST REVIEWED AND RECONCILED WITH THE PATIENT PAST MEDICAL HISTORY 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 SOCIAL HISTORY GENERAL: TOBACCO USE ARE YOU A: NONSMOKER . LATEX QUESTIONNAIRE LATEX ALLERGY : HAVE YOU EVER DEVELOPED ANY TYPE OF REACTION AFTER HANDLING LATEX PRODUCTS SUCH RUBBER GLOVES, CONDOMS, DIAPHRAGMS, BALLOONS, SOCKS, OR UNDERWEAR?NO LATEX ALLERGY : HAVE YOU EVER DEVELOPED ANY TYPE OF REACTION DURING OR AFTER DENTAL APPOINTMENT, VAGINAL/RECTAL EXAMINATION, SURGICAL PROCEDURE, OR ANY OTHER EXPOSURE?NO LATEX RISK : HAVE YOU EVER HAD ANY DIFFICULTY BREATHING OR HIVES AFTER EATING OR HANDLING ANY FRUITS, OR VEGETABLES; SUCH KIWI, BANANAS, STONE FRUITS, OR CHESTNUTSNO LATEX RISK : DO YOU HAVE A PREVIOUS PERSONAL HISTORY OF MORE THAN NINE SURGERIES, SPINA BIFIDA, OR REPEATED CATHERTIZATIONS? NO LATEX RISK : ARE YOU FREQUENTLY EXPOSED TO LATEX PRODUCTS IN YOUR OCCUPATION?NO DATE ASKED : 06/19/2018 ALCOHOL SCREENING DID YOU HAVE A DRINK CONTAINING ALCOHOL IN THE PAST YEAR?NO POINTS0 INTERPRETATIONNEGATIVE RECREATIONAL DRUG USE DRUG USE?NO CAFFEINE CAFFEINE USE?YES HOW OFTEN AND HOW MUCH? ONCE A [place] [employer] [id number] OTHER LANGUAGE LANGUAGES SPOKEN:MALDIVIAN LEARNING BARRIERS / SPECIAL NEEDS ORIENTED TO PLAN OF CARE: PATIENT, PAIN MANAGEMENT PATIENT, ORIENTED TO PLAN OF CARE: PATIENT, PAIN MANAGEMENT PATIENT. DOMESTIC VIOLENCE DO YOU FEEL SAFE IN YOUR ENVIRONMENT?YES NEW PATIENT PAIN DIARY FROM 0-10, WHAT LEVEL IS YOUR PAIN TODAY?7 PAIN CLINIC PFS, CLERGY, PUBLIC HEALTH REFERRALS PFS REFERRAL NEEDED?NO CLERGY REFERRAL NEEDED?NO PUBLIC HEALTH REFERRAL NEEDED?NO WAS THE PROVIDER NOTIFIED OF ANY PERTINENT INFO? N/A HAS THE PATIENT BEEN EDUCATED REGARDING HIS/HER PLAN OF CARE?YES HAS THE PATIENT BEEN EDUCATED REGARDING PAIN, THE RISK FOR PAIN, THE IMPORTANCE OF EFFECTIVE PAIN MANAGEMENT, AND THE PAIN ASSESSMENT PROCESS?YES ADVANCE DIRECTIVE ADVANCE DIRECTIVE DISCUSSED WITH PATIENT:YES HEALTH CARE PROXY DAUGHTER MAIDA REDDY [phone] REVIEWED WITH PT 11/19/17 0945 LASREVIEWED WITH PT 12/20/17 0955 LASREVIEWED WITH PT 04/23/18 0845 LAS06/19/18 REVIEWED WITH PT. AD. HOSPITALIZATION/MAJOR DIAGNOSTIC PROCEDURE SURGERY RELATED CHILD REVIEW OF SYSTEMS REVIEWED BY: PROVIDER: NICHOLAS GARRETT . CONSTITUTIONAL: ANY CHANGE IN YOUR MEDICAL CONDITION? NO . CHILLS NO . FEVER NO . INFECTION: DO YOU HAVE NEW INFECTIONS? NO . DO YOU HAVE HISTORY OF MRSA? NO . MUSCULOSKELETAL: ANY NEW PATTERNS OF PAIN OR NUMBNESS? YES, FINGERS ARE TINGLING IN HER LEFT HAND SINCE LAST FALL. SAW NUEROLOGIST IN [place] AND THEY ARE GOING TO BE DOING AND EMG 07/11/18 . GASTROENTEROLOGY: ANY NEW CHANGE IN BOWEL CONTROL? NO . GENITOURINARY: ANY NEW CHANGE IN BLADDER CONTROL? NO . IS THERE A CHANCE YOU COULD BE ? NO . HEMATOLOGY/LYMPH: DO YOU TAKE ANY BLOOD THINNERS? (FOR EXAMPLE- COUMADIN, PLAVIX, AGGRENOX, PLATEL, PRADAXA, OR XARELTO) NO . WHEN WAS YOUR LAST DOSE? DATE: TIME: . NEUROLOGY: HAVE YOU FALLEN IN THE PAST 12 MONTHS? NO . ANY NEW EXTREMITY NUMBNESS OR WEAKNESS? YES, NUMBNESS LEFT FINGERS . CARDIOLOGY: DO YOU HAVE A PACEMAKER OR DEFIBRILLATOR? NO . RESPIRATORY: HAVE YOU BEEN SICK IN THE PAST WEEK? NO . FEVER NO . FLU LIKE SYMPTOMS? NO . COUGH NO . INTEGUMENTARY: DO YOU HAVE ANY RASHES OR OPEN SORES? NO . ALLERGIC/IMMUNO: ARE YOU ALLERGIC TO IV DYE? NO . ANY NEW ALLERGIES? NO . PSYCHIATRIC: DO YOU HAVE THOUGHTS OF HURTING YOURSELF OR SOMEONE ELSE? NO . ARE YOU ABUSED, NEGLECTED, OR IN AN UNSAFE ENVIRONMENT? NO . ENDOCRINOLOGY: ARE YOU DIABETIC? NO . OTHER: DO YOU NEED ANY PRESCRIPTIONS? NO . IF YES, PLEASE LIST: ____ . ANY NEW PROBLEMS WITH YOUR MEDICATIONS? NO . WHEN DID YOU LAST EAT? ____ . WHEN DID YOU LAST DRINK? ____ . WHAT DID YOU LAST DRINK? ____ . NAME OF PERSON DRIVING YOU HOME? ____ . DO YOU HAVE ANY OTHER QUESTIONS OR CONCERNS NO . VITAL SIGNS WT 200 LBS, HT 66 IN, BMI 32.28 INDEX, BP 155/94 MM HG, REPEAT BP 138/90 MANUAL, HR 65 /MIN, RR 18 /MIN, TEMP 96.8 F, OXYGEN SAT % 97%, SAFE IN ENV? (Y/N) Y, NA INITIALS PR 12:28, REVIEWED BY: JERONIMO. EXAMINATION GENERAL EXAMINATION: GENERAL APPEARANCE:UNCOMFORTABLE . NECK:LIMITED EXTENSION, LIMITED FLEXION . LUNGS:LUNG LOVING ARE CLEAR TO AUSCULTATION BILATERALLY. GOOD MOVEMENT OF AIR . HEART:S1, S2 IN A REGULAR RATE AND RHYTHM. NO SIGNIFICANT MURMURS, RUBS OR GALLOPS NOTED . CERVICALSPECIFI TRIGGER POINTS OVER RIGHT NECK/RHOMBOID REGION.PAIN IS AGGREVATED IN THIS REGION WITH ROJM NECK AND RIGHT ARM. ASSESSMENTS MYALGIA, OTHER SITE - M79.18 (PRIMARY) TREATMENT MYALGIA, OTHER SITE NOTES: TPI RIGHT NECK/SHOULDER. PROCEDURE CODES FA211 ESTABILISHED PATIENT [facility] CHARGE DISPOSITION & COMMUNICATION FOLLOW UP OST (REASON: TPI RIGHT NECK/SHOULDER) ELECTRONICALLY SIGNED BY TAMI CORTEZ ON 07/03/2018 AT 09:57 AM EDT DISCLAIMER : THIS IS A VISIT SUMMARY EXTRACTED FROM THE [employer] CHART. IT IS NOT A COPY OF THE [employer] PROGRESS NOTE. KATARZYNAD
== END ==
LOC: M PAIN 11:30
PROVIDERS: ATTEND Nurse Practitioner Family
DX: M79.18 Myalgia, other site (principal); G43.909 Migraine, unspecified, not intractable, without status migrainosus; Z79.1 Long term (current) use of non-steroidal anti-inflammatories (NSAID); Z79.899 Other long term (current) drug therapy; Z88.0 Allergy status to penicillin

== ENCOUNTER → 2018-09-19 | Outpatient (CLI) | payer MEDICARE ==
[~2018-09-19] MED LIST changes: +BUPIVACAINE HCL 0.25% 10 ML VIAL As Ordered ONE; +BUPIVACAINE HCL 0.25% 30 ML VIAL As Ordered ONE; -CYCL5TA PO; +CYCL5TAB5 PO; -DAILTAB49 PO; +NEPH1TAB11 PO; -NEPHTAB PO; +TH DTAB2 PO; +TRIAMCINOLONE ACETONIDE SUSP 40 MG/ML VIAL (J3301) As Ordered ONE
--- NOTE | 2018-09-30 00:11 | ECWPNPC ---
PATIENT NAME: BREEZY REDDY : 1960 GENDER: FEMALE VISIT DATE: 09/19/2018 DISCHARGE DATE: 09/19/18 1549 VISIT LOCKED DATE TIME: PHYSICIAN: LATIA LOPEZ MD RESOURCE: LATIA LOPEZ MD REASON FOR APPOINTMENT 1. TPI NECK/SHOULDER HISTORY OF PRESENT ILLNESS HISTORY OF PRESENT ILLNESS: PAIN THE PATIENT DESCRIBES THE PAIN... FALL RISK SCREENING: SCREENING :NO FALLS REPORTED IN THE LAST YEAR CURRENT MEDICATIONS TAKING ZOLPIDEM TARTRATE 10 MG TABLET 1 TABLET AT BEDTIME NEEDED ORALLY ONCE A DAY, NOTES: 09/18 2129 TAKING MULTIVITAMIN 1 CAP(S) ORALLY DAILY, NOTES: 09/19 629 TAKING GABAPENTIN 300 MG CAPSULE 1 CAPSULE ORALLY BEFORE BEDTIME FOR PAIN, NOTES: 09/18 2129 TAKING IBUPROFEN 800 MG TABLET 1 TABLET WITH FOOD ORALLY THREE TIMES A DAY FOR PAIN, NOTES: 09/20 1199 TAKING AMITRIPTYLINE HCL 50 MG TABLET 1 TABLET ORALLY EVERY 8 HRS NEEDED FOR PAIN MDD2, NOTES: 09/19 629 TAKING TIZANIDINE HCL 4 MG TABLET 1-1 1/2 TAB ORALLY Q8H PRN, NOTES: 09/18 2129 MEDICATION LIST REVIEWED AND RECONCILED WITH THE PATIENT PAST MEDICAL HISTORY 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 SOCIAL HISTORY GENERAL: TOBACCO USE ARE YOU A: NONSMOKER. PAIN CLINIC PFS, CLERGY, PUBLIC HEALTH REFERRALS PFS REFERRAL NEEDED?NO CLERGY REFERRAL NEEDED?NO PUBLIC HEALTH REFERRAL NEEDED?NO WAS THE PROVIDER NOTIFIED OF ANY PERTINENT INFO? N/A HAS THE PATIENT BEEN EDUCATED REGARDING HIS/HER PLAN OF CARE?YES HAS THE PATIENT BEEN EDUCATED REGARDING PAIN, THE RISK FOR PAIN, THE IMPORTANCE OF EFFECTIVE PAIN MANAGEMENT, AND THE PAIN ASSESSMENT PROCESS?YES LATEX QUESTIONNAIRE LATEX ALLERGY : HAVE YOU EVER DEVELOPED ANY TYPE OF REACTION AFTER HANDLING LATEX PRODUCTS SUCH RUBBER GLOVES, CONDOMS, DIAPHRAGMS, BALLOONS, SOCKS, OR UNDERWEAR?NO LATEX ALLERGY : HAVE YOU EVER DEVELOPED ANY TYPE OF REACTION DURING OR AFTER DENTAL APPOINTMENT, VAGINAL/RECTAL EXAMINATION, SURGICAL PROCEDURE, OR ANY OTHER EXPOSURE?NO LATEX RISK : HAVE YOU EVER HAD ANY DIFFICULTY BREATHING OR HIVES AFTER EATING OR HANDLING ANY FRUITS, OR VEGETABLES; SUCH KIWI, BANANAS, STONE FRUITS, OR CHESTNUTSNO LATEX RISK : DO YOU HAVE A PREVIOUS PERSONAL HISTORY OF MORE THAN NINE SURGERIES, SPINA BIFIDA, OR REPEATED CATHERTIZATIONS? NO LATEX RISK : ARE YOU FREQUENTLY EXPOSED TO LATEX PRODUCTS IN YOUR OCCUPATION?NO DATE ASKED : 09/19/2018 CAFFEINE CAFFEINE USE?YES HOW OFTEN AND HOW MUCH? 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 [id number] OTHER LANGUAGE LANGUAGES SPOKEN:THAI DOMESTIC VIOLENCE DO YOU FEEL SAFE IN YOUR ENVIRONMENT?YES ALCOHOL SCREENING DID YOU HAVE A DRINK CONTAINING ALCOHOL IN THE PAST YEAR?NO POINTS0 INTERPRETATIONNEGATIVE RECREATIONAL DRUG USE DRUG USE?NO LEARNING BARRIERS / SPECIAL NEEDS BARRIERS TO LEARNING?NO HEARING IMPAIRED?NO VISION IMPAIRED?YES :CORRECTIVE LENSES READING COGNITIVELY IMPAIRED?NO READINESS TO LEARN?YES LEARNING PREFERENCES?NO LEARNING CAPABILITIES PRESENT?YES EMOTIONAL BARRIERS?NO SPECIAL DEVICES?NO MAKEUP ARTISTRY INSTRUCTOR NEEDED?NO REVIEWED WITH PT 11/19/17 0945 LASREVIEWED WITH PT 12/20/17 0955 LASREVIEWED WITH PT 04/23/18 0845 LAS06/19/18 REVIEWED WITH PT. AD09/19/18 REVIEWED WITH PT. AD. HOSPITALIZATION/MAJOR DIAGNOSTIC PROCEDURE SURGERY RELATED CHILD REVIEW OF SYSTEMS REVIEWED BY: PROVIDER: . CONSTITUTIONAL: ANY CHANGE IN YOUR MEDICAL CONDITION? NO . CHILLS NO . FEVER NO . INFECTION: DO YOU HAVE NEW INFECTIONS? NO . DO YOU HAVE HISTORY OF MRSA? NO . MUSCULOSKELETAL: ANY NEW PATTERNS OF PAIN OR NUMBNESS? NO . GASTROENTEROLOGY: ANY NEW CHANGE IN BOWEL CONTROL? NO . GENITOURINARY: ANY NEW CHANGE IN BLADDER CONTROL? NO . IS THERE A CHANCE YOU COULD BE ? NO . HEMATOLOGY/LYMPH: DO YOU TAKE ANY BLOOD THINNERS? (FOR EXAMPLE- COUMADIN, PLAVIX, AGGRENOX, PLATEL, PRADAXA, OR XARELTO) NO . WHEN WAS YOUR LAST DOSE? DATE: TIME: . NEUROLOGY: HAVE YOU FALLEN IN THE PAST 12 MONTHS? NO . ANY NEW EXTREMITY NUMBNESS OR WEAKNESS? NO . CARDIOLOGY: DO YOU HAVE A PACEMAKER OR DEFIBRILLATOR? NO . RESPIRATORY: HAVE YOU BEEN SICK IN THE PAST WEEK? NO . FEVER NO . FLU LIKE SYMPTOMS? NO . COUGH NO . INTEGUMENTARY: DO YOU HAVE ANY RASHES OR OPEN SORES? NO . ALLERGIC/IMMUNO: ARE YOU ALLERGIC TO IV DYE? NO . ANY NEW ALLERGIES? NO . PSYCHIATRIC: DO YOU HAVE THOUGHTS OF HURTING YOURSELF OR SOMEONE ELSE? NO . ARE YOU ABUSED, NEGLECTED, OR IN AN UNSAFE ENVIRONMENT? NO . ENDOCRINOLOGY: ARE YOU DIABETIC? NO . OTHER: DO YOU NEED ANY PRESCRIPTIONS? NO . IF YES, PLEASE LIST: ____ . ANY NEW PROBLEMS WITH YOUR MEDICATIONS? NO . WHEN DID YOU LAST EAT? 09/20 799 . WHEN DID YOU LAST DRINK? 09/20 799 . WHAT DID YOU LAST DRINK? [employer] DEW . NAME OF PERSON DRIVING YOU HOME? PORTILLO GLASER . DO YOU HAVE ANY OTHER QUESTIONS OR CONCERNS PLANS ON GETTING SHINGLES VACCINE 09/21-DR. LOPEZ AWARE AND SPOKE WITH PT ABOUT WAITING 2 WEEKS BEFORE GETTING . VITAL SIGNS WT 207.6 LBS, HT 66 IN, BMI 33.50 INDEX, BP 139/74 MM HG, HR 65 /MIN, RR 18 /MIN, TEMP 97.0 F, OXYGEN SAT % 100%, SAFE IN ENV? (Y/N) Y, NA INITIALS WV 13:30, REVIEWED BY: AD. ASSESSMENTS MYALGIA, OTHER SITE - M79.18 (PRIMARY) PROCEDURES PN TRIGGER POINT INJECTION WITH STEROIDS PRE PROCEDURE DIAGNOSIS 1. MYALGIA 2. PAIN AT BILATERAL NECK AREA AND RIGHT SHOULDER AREA. POST PROCEDURE DIAGNOSIS 1. MYALGIA 2. PAIN AT BILATERAL NECK AREA AND RIGHT SHOULDER AREA. PROCEDURE TRIGGER POINT INJECTION AT RIGHT AND LEFT NECK AREA AND RIGHT SHOULDER AREA . SURGEON DR. LATIA LOPEZ LICENSED MASTER SOCIAL WORKER NONE ANESTHESIA LOCAL PRE PROCEDURE NOTE THE PATIENT HAS A HISTORY OF CHRONIC PAIN AT THE RIGHT AND LEFT NECK AREA AND RIGHT SHOULDER AREA. I EVALUATED THE PATIENT AND REVIEWED THE CHART. THERE IS EVIDENCE OF BANDS OF TISSUE WITH RESTRICTION OF MOVEMENT AND PRESENCE OF TRIGGER POINT AT THE AFFECTED AREA. I WENT OVER THE RISKS, ALTERNATIVES, AND BENEFITS ASSOCIATED WITH THIS PROCEDURE. THE PATIENT WOULD LIKE TO PROCEED AND GIVE CONSENT TO PERFORMED THE PROCEDURE. THE PATIENT DENIES UNEXPLAINABLE WEIGHT LOSS, FEVER, CHILLS, OR NEW CHANGES IN URINARY OR BOWEL CONTROL DESCRIPTION OF PROCEDURE THE PATIENT WAS BROUGHT TO THE PROCEDURE ROOM AND PLACED IN THE SITTING POSITION. THE AREA WAS CLEANED WITH ALCOHOL. THE PROCEDURE WAS DONE USING ASEPTIC STERILE TECHNIQUE. I CHECKED LATERALITY AND THE LEVEL WHERE THE PROCEDURE WAS GOING TO BE PERFORMED WITH THE PATIENT AND THE SUPPORTING STAFF AT THE MOMENT OF THE TIME OUT IN THE PROCEDURE ROOM. USING A 25-GAUGE NEEDLE, TRIGGER POINTS WERE INJECTED AT THE RIGHT AND LEFT NECK AREA AND RIGHT SHOULDER AREA WITH A TOTAL OF 40 ML OF BUPIVACAINE 0.25% AND KENALOG 40 MG. THERE WAS NO EVIDENCE OF BLOOD, PARESTHESIA OR CEREBROSPINAL FLUID DURING THE PROCEDURE. THE PATIENT WAS SENT TO THE RECOVERY ROOM. THE PATIENT WAS MOVING THE EXTREMITIES AND DOING WELL. THERE WAS NO COMPLICATION DURING THE PROCEDURE POST PROCEDURE NOTE THE PATIENT WILL BE SEEN IN A FOLLOW UP IN THE NEXT FEW WEEKS. INSTRUCTIONS WERE GIVEN, QUESTIONS WERE ANSWERED, AND THE PATIENT EXPRESSED UNDERSTANDING AND AGREES WITH THE PLAN. I, BRIAN GAFFNEY, DOCUMENTED THE ABOVE INFORMATION ACTING A SCRIBE FOR DR. LOPEZ. I HAVE REVIEWED THE ABOVE DOCUMENT, WRITTEN BY BRIAN GAFFNEY SCRIBMalena AND I VERIFY THAT IT IS ACCURATE. PROCEDURE CODES 70236 INJECT TRIGGER POINTS 3/> DISPOSITION & COMMUNICATION FOLLOW UP 3 WEEKS ELECTRONICALLY SIGNED BY LATIA LOPEZ MD, MD ON 09/29/2018 AT 07:55 PM EDT DISCLAIMER : THIS IS A VISIT SUMMARY EXTRACTED FROM THE [employer] CHART. IT IS NOT A COPY OF THE [employer] PROGRESS NOTE. ANDREW
== END ==
LOC: M PAIN 14:00
PROVIDERS: ATTEND Anesthesiology
DX: M79.18 Myalgia, other site (principal); G43.909 Migraine, unspecified, not intractable, without status migrainosus; M50.10 Cervical disc disorder with radiculopathy, unspecified cervical region; Z79.899 Other long term (current) drug therapy; Z88.0 Allergy status to penicillin
CPT/HCPCS: 20553; J3301

== ENCOUNTER → 2018-11-13 | Outpatient (CLI) | payer MEDICARE ==
[~2018-11-13] MED LIST changes: -BUPIVACAINE HCL 0.25% 10 ML VIAL As Ordered ONE; -BUPIVACAINE HCL 0.25% 30 ML VIAL As Ordered ONE; -TRIAMCINOLONE ACETONIDE SUSP 40 MG/ML VIAL (J3301) As Ordered ONE
--- NOTE | 2018-12-04 02:12 | ECWPNPC ---
PATIENT NAME: BREEZY REDDY : 1960 GENDER: FEMALE VISIT DATE: 11/13/2018 DISCHARGE DATE: 11/13/18 1045 VISIT LOCKED DATE TIME: PHYSICIAN: NICHOLAS SAINI RESOURCE: NICHOLAS SAINI REASON FOR APPOINTMENT 1. POST TPI HISTORY OF PRESENT ILLNESS HISTORY OF PRESENT ILLNESS: HERE FOR POST PROCEDURE F/U.HAD TRIGGER POINTS RIGHT NECK AND SHOULDER ON 09-19-18.REPORTING >50% IMPROVEMENT IN PAIN POST PROCEDURE.RATING PAIN VAS 4/10.REPORTING IMPROVED SLEEP POST PROCEDURE.HISTORY TWO CERVICAL SURGERIES /FUSION LAST ONE DONE IN 2017.SHE WILL BE SEEING SURGEON ,DR. MCKEON SOON SHE HAS BEEN EXPERIENCING NUMBNESS IN LEFT PINKY,RING AND THUMB OVER THE PAST 3 MONTHS.PAIN HAS GRADUALLY RETURNED TO BASELINE. PAIN THE PATIENT DESCRIBES THE PAIN... THE PATIENT DESCRIBES THE PAIN... THE PATIENT DESCRIBES THE PAIN... 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 SOCIAL HISTORY GENERAL: TOBACCO USE ARE YOU A: NONSMOKER. PAIN CLINIC PFS, CLERGY, PUBLIC HEALTH REFERRALS PFS REFERRAL NEEDED?NO CLERGY REFERRAL NEEDED?NO PUBLIC HEALTH REFERRAL NEEDED?NO WAS THE PROVIDER NOTIFIED OF ANY PERTINENT INFO? N/A HAS THE PATIENT BEEN EDUCATED REGARDING HIS/HER PLAN OF CARE?YES HAS THE PATIENT BEEN EDUCATED REGARDING PAIN, THE RISK FOR PAIN, THE IMPORTANCE OF EFFECTIVE PAIN MANAGEMENT, AND THE PAIN ASSESSMENT PROCESS?YES LATEX QUESTIONNAIRE LATEX ALLERGY : HAVE YOU EVER DEVELOPED ANY TYPE OF REACTION AFTER HANDLING LATEX PRODUCTS SUCH RUBBER GLOVES, CONDOMS, DIAPHRAGMS, BALLOONS, SOCKS, OR UNDERWEAR?NO LATEX ALLERGY : HAVE YOU EVER DEVELOPED ANY TYPE OF REACTION DURING OR AFTER DENTAL APPOINTMENT, VAGINAL/RECTAL EXAMINATION, SURGICAL PROCEDURE, OR ANY OTHER EXPOSURE?NO LATEX RISK : HAVE YOU EVER HAD ANY DIFFICULTY BREATHING OR HIVES AFTER EATING OR HANDLING ANY FRUITS, OR VEGETABLES; SUCH KIWI, BANANAS, STONE FRUITS, OR CHESTNUTSNO LATEX RISK : DO YOU HAVE A PREVIOUS PERSONAL HISTORY OF MORE THAN NINE SURGERIES, SPINA BIFIDA, OR REPEATED CATHERIZATIONS? NO LATEX RISK : ARE YOU FREQUENTLY EXPOSED TO LATEX PRODUCTS IN YOUR OCCUPATION?NO DATE ASKED : 09/19/2018 CAFFEINE CAFFEINE USE?YES HOW OFTEN AND HOW MUCH? ONCE A DAYMOMIGUEL STATON ADVANCE DIRECTIVE ADVANCE DIRECTIVE DISCUSSED WITH PATIENT:YES HEALTH CARE PROXY DAUGHTER MAIDA REDDY [phone] ALSO HAS POA AND LIVING WILL EDUCATION LEVEL OF EDUCATION:NOT FINISHED COLLEGE JEHOVAH'S WITNESS [id number] OTHER LANGUAGE LANGUAGES SPOKEN:OMANI DOMESTIC VIOLENCE DO YOU FEEL SAFE IN YOUR ENVIRONMENT?YES ALCOHOL SCREENING DID YOU HAVE A DRINK CONTAINING ALCOHOL IN THE PAST YEAR?NO POINTS0 INTERPRETATIONNEGATIVE RECREATIONAL DRUG USE DRUG USE?NO LEARNING BARRIERS / SPECIAL NEEDS BARRIERS TO LEARNING?NO HEARING IMPAIRED?NO VISION IMPAIRED?YES :CORRECTIVE LENSES READING COGNITIVELY IMPAIRED?NO READINESS TO LEARN?YES LEARNING PREFERENCES?NO LEARNING CAPABILITIES PRESENT?YES EMOTIONAL BARRIERS?NO SPECIAL DEVICES?NO MANAGER OF CASE MANAGEMENT NEEDED?NO REVIEWED WITH PT 11/19/17 0945 LASREVIEWED WITH PT 12/20/17 0955 LASREVIEWED WITH PT 04/23/18 0845 LAS06/19/18 REVIEWED WITH PT. AD09/19/18 REVIEWED WITH PT. JEANNINE WITH PATIENT 11/13/18 1030 NLJ. HOSPITALIZATION/MAJOR DIAGNOSTIC PROCEDURE SURGERY RELATED CHILD REVIEW OF SYSTEMS REVIEWED BY: PROVIDER: NICHOLAS GARRETT . CONSTITUTIONAL: ANY CHANGE IN YOUR MEDICAL CONDITION? NO . CHILLS NO . FEVER NO . INFECTION: DO YOU HAVE NEW INFECTIONS? NO . DO YOU HAVE HISTORY OF MRSA? NO . MUSCULOSKELETAL: ANY NEW PATTERNS OF PAIN OR NUMBNESS? NO . GASTROENTEROLOGY: ANY NEW CHANGE IN BOWEL CONTROL? NO . GENITOURINARY: ANY NEW CHANGE IN BLADDER CONTROL? NO . IS THERE A CHANCE YOU COULD BE ? NO . HEMATOLOGY/LYMPH: DO YOU TAKE ANY BLOOD THINNERS? (FOR EXAMPLE- COUMADIN, PLAVIX, AGGRENOX, PLATEL, PRADAXA, OR XARELTO) NO . WHEN WAS YOUR LAST DOSE? DATE: TIME: . NEUROLOGY: HAVE YOU FALLEN IN THE PAST 12 MONTHS? NO . ANY NEW EXTREMITY NUMBNESS OR WEAKNESS? NO . CARDIOLOGY: DO YOU HAVE A PACEMAKER OR DEFIBRILLATOR? NO . RESPIRATORY: HAVE YOU BEEN SICK IN THE PAST WEEK? NO . FEVER NO . FLU LIKE SYMPTOMS? NO . COUGH NO . INTEGUMENTARY: DO YOU HAVE ANY RASHES OR OPEN SORES? NO . ALLERGIC/IMMUNO: ARE YOU ALLERGIC TO IV DYE? NO . ANY NEW ALLERGIES? NO . PSYCHIATRIC: DO YOU HAVE THOUGHTS OF HURTING YOURSELF OR SOMEONE ELSE? NO . ARE YOU ABUSED, NEGLECTED, OR IN AN UNSAFE ENVIRONMENT? NO . ENDOCRINOLOGY: ARE YOU DIABETIC? NO . OTHER: DO YOU NEED ANY PRESCRIPTIONS? YES . IF YES, PLEASE LIST: ____IBUPROFEN . ANY NEW PROBLEMS WITH YOUR MEDICATIONS? NO . WHEN DID YOU LAST EAT? ____ . WHEN DID YOU LAST DRINK? ____ . WHAT DID YOU LAST DRINK? ____ . NAME OF PERSON DRIVING YOU HOME? ____ . DO YOU HAVE ANY OTHER QUESTIONS OR CONCERNS NO- STATES TRIGGER POINT INJECTIONS IN BILATERAL NECK AND RIGHT SHOULDER HAVE WORKED WELL. . VITAL SIGNS WT 207.8 LBS, HT 66 IN, BMI 33.54 INDEX, BP 144/78 MM HG, HR 53 /MIN, RR 18 /MIN, TEMP 96.7 F, OXYGEN SAT % 98%, SAFE IN ENV? (Y/N) YES, NA INITIALS SC 10:31, REVIEWED BY: SALTY. EXAMINATION GENERAL EXAMINATION: GENERALALERT,NO DISTRESS. NECK:LIMITED EXTENSION, LIMITED FLEXION . LUNGS:LUNG LOVING ARE CLEAR TO AUSCULTATION BILATERALLY. GOOD MOVEMENT OF AIR . HEART:S1, S2 IN A REGULAR RATE AND RHYTHM. NO SIGNIFICANT MURMURS, RUBS OR GALLOPS NOTED . 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 PROCEDURE CODES FA211 ESTABILISHED PATIENT [facility] FACILITY CHARGE DISPOSITION & COMMUNICATION FOLLOW UP 3 MONTHS (REASON: NECK SHOULDER) ELECTRONICALLY SIGNED BY TAMI CORTEZ ON 12/03/2018 AT 04:06 PM EDT DISCLAIMER : THIS IS A VISIT SUMMARY EXTRACTED FROM THE [employer] CHART. IT IS NOT A COPY OF THE [employer] PROGRESS NOTE. ANDREW
== END ==
LOC: M PAIN 10:00
PROVIDERS: ATTEND Nurse Practitioner Family
DX: M79.18 Myalgia, other site (principal); M96.1 Postlaminectomy syndrome, not elsewhere classified; G43.909 Migraine, unspecified, not intractable, without status migrainosus; Z88.0 Allergy status to penicillin; Z79.899 Other long term (current) drug therapy

== ENCOUNTER → 2019-01-24 | Outpatient (CLI) | payer MEDICARE ==
--- NOTE | 2019-02-08 01:28 | ECWPNPC ---
PATIENT NAME: BREEZY REDDY : 1960 GENDER: FEMALE VISIT DATE: 01/24/2019 DISCHARGE DATE: 01/24/19 1143 VISIT LOCKED DATE TIME: PHYSICIAN: NICHOLAS SAINI RESOURCE: NICHOLAS SAINI REASON FOR APPOINTMENT 1. NECK/SHOULDER PAIN HISTORY OF PRESENT ILLNESS HISTORY OF PRESENT ILLNESS: BEING SEEN TODAY ON AN URGENT BASIS FOR NECK AND RIGHT SHOULDER PAIN FLARE UP.RATING PAIN VAS 10/10.RESPONDS WELL TO TPI LAST DONE IN AUGUST-2018. PAIN THE PATIENT DESCRIBES THE PAIN... 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 SOCIAL HISTORY GENERAL: TOBACCO USE ARE YOU A: NONSMOKER. PAIN CLINIC PFS, CLERGY, PUBLIC HEALTH REFERRALS PFS REFERRAL NEEDED?NO CLERGY REFERRAL NEEDED?NO PUBLIC HEALTH REFERRAL NEEDED?NO WAS THE PROVIDER NOTIFIED OF ANY PERTINENT INFO? N/A HAS THE PATIENT BEEN EDUCATED REGARDING HIS/HER PLAN OF CARE?YES HAS THE PATIENT BEEN EDUCATED REGARDING PAIN, THE RISK FOR PAIN, THE IMPORTANCE OF EFFECTIVE PAIN MANAGEMENT, AND THE PAIN ASSESSMENT PROCESS?YES LATEX QUESTIONNAIRE LATEX ALLERGY : HAVE YOU EVER DEVELOPED ANY TYPE OF REACTION AFTER HANDLING LATEX PRODUCTS SUCH RUBBER GLOVES, CONDOMS, DIAPHRAGMS, BALLOONS, SOCKS, OR UNDERWEAR?NO LATEX ALLERGY : HAVE YOU EVER DEVELOPED ANY TYPE OF REACTION DURING OR AFTER DENTAL APPOINTMENT, VAGINAL/RECTAL EXAMINATION, SURGICAL PROCEDURE, OR ANY OTHER EXPOSURE?NO LATEX RISK : HAVE YOU EVER HAD ANY DIFFICULTY BREATHING OR HIVES AFTER EATING OR HANDLING ANY FRUITS, OR VEGETABLES; SUCH KIWI, BANANAS, STONE FRUITS, OR CHESTNUTSNO LATEX RISK : DO YOU HAVE A PREVIOUS PERSONAL HISTORY OF MORE THAN NINE SURGERIES, SPINA BIFIDA, OR REPEATED CATHERIZATIONS? NO LATEX RISK : ARE YOU FREQUENTLY EXPOSED TO LATEX PRODUCTS IN YOUR OCCUPATION?NO DATE ASKED : 09/19/2018 CAFFEINE CAFFEINE USE?YES HOW OFTEN AND HOW MUCH? ONCE A DAYMOUNTNAI LENNONW ADVANCE DIRECTIVE ADVANCE DIRECTIVE DISCUSSED WITH PATIENT:YES HEALTH CARE PROXY DAUGHTER MAIDA REDDY [phone] ALSO HAS POA AND LIVING WILL EDUCATION LEVEL OF EDUCATION:NOT FINISHED COLLEGE NONDENOMINATIONAL [id number] OTHER LANGUAGE LANGUAGES SPOKEN:ZIMBABWEAN DOMESTIC VIOLENCE DO YOU FEEL SAFE IN YOUR ENVIRONMENT?YES ALCOHOL SCREENING DID YOU HAVE A DRINK CONTAINING ALCOHOL IN THE PAST YEAR?NO POINTS0 INTERPRETATIONNEGATIVE RECREATIONAL DRUG USE DRUG USE?NO LEARNING BARRIERS / SPECIAL NEEDS BARRIERS TO LEARNING?NO HEARING IMPAIRED?NO VISION IMPAIRED?YES COGNITIVELY IMPAIRED?NO :CORRECTIVE LENSES READING READINESS TO LEARN?YES LEARNING PREFERENCES?NO LEARNING CAPABILITIES PRESENT?YES EMOTIONAL BARRIERS?NO SPECIAL DEVICES?NO SENIOR DATA QUALITY ANALYST NEEDED?NO REVIEWED WITH PT 11/19/17 0945 LASREVIEWED WITH PT 12/20/17 0955 LASREVIEWED WITH PT 04/23/18 0845 LAS06/19/18 REVIEWED WITH PT. AD09/19/18 REVIEWED WITH PT. ADREVIEWED WITH PATIENT 11/13/18 1030 NLJREVIEWED WITH PATIENT 01/24/19 1122 JS. HOSPITALIZATION/MAJOR DIAGNOSTIC PROCEDURE SURGERY RELATED CHILD REVIEW OF SYSTEMS REVIEWED BY: PROVIDER: NICHOLAS GARRETT . CONSTITUTIONAL: ANY CHANGE IN YOUR MEDICAL CONDITION? NO . CHILLS NO . FEVER NO . INFECTION: DO YOU HAVE NEW INFECTIONS? NO . DO YOU HAVE HISTORY OF MRSA? NO . MUSCULOSKELETAL: ANY NEW PATTERNS OF PAIN OR NUMBNESS? NO . GASTROENTEROLOGY: ANY NEW CHANGE IN BOWEL CONTROL? NO . GENITOURINARY: ANY NEW CHANGE IN BLADDER CONTROL? NO . IS THERE A CHANCE YOU COULD BE ? NO . HEMATOLOGY/LYMPH: DO YOU TAKE ANY BLOOD THINNERS? (FOR EXAMPLE- COUMADIN, PLAVIX, AGGRENOX, PLATEL, PRADAXA, OR XARELTO) NO . WHEN WAS YOUR LAST DOSE? DATE: TIME: . NEUROLOGY: HAVE YOU FALLEN IN THE PAST 12 MONTHS? NO . ANY NEW EXTREMITY NUMBNESS OR WEAKNESS? NO . CARDIOLOGY: DO YOU HAVE A PACEMAKER OR DEFIBRILLATOR? NO . RESPIRATORY: HAVE YOU BEEN SICK IN THE PAST WEEK? NO . FEVER NO . FLU LIKE SYMPTOMS? NO . COUGH NO . INTEGUMENTARY: DO YOU HAVE ANY RASHES OR OPEN SORES? NO . ALLERGIC/IMMUNO: ARE YOU ALLERGIC TO IV DYE? NO . ANY NEW ALLERGIES? NO . PSYCHIATRIC: DO YOU HAVE THOUGHTS OF HURTING YOURSELF OR SOMEONE ELSE? NO . ARE YOU ABUSED, NEGLECTED, OR IN AN UNSAFE ENVIRONMENT? NO . ENDOCRINOLOGY: ARE YOU DIABETIC? NO . OTHER: DO YOU NEED ANY PRESCRIPTIONS? NO . IF YES, PLEASE LIST: ____ . ANY NEW PROBLEMS WITH YOUR MEDICATIONS? NO . WHEN DID YOU LAST EAT? ____ . WHEN DID YOU LAST DRINK? ____ . WHAT DID YOU LAST DRINK? ____ . NAME OF PERSON DRIVING YOU HOME? ____ . DO YOU HAVE ANY OTHER QUESTIONS OR CONCERNS NO . VITAL SIGNS WT 204.6 LBS, HT 66 IN, BMI 33.02 INDEX, BP 140/84 MM HG, HR 68 /MIN, RR 18 /MIN, TEMP 96.9 F, OXYGEN SAT % 100%, SAFE IN ENV? (Y/N) YES, NA INITIALS IL 11:17, REVIEWED BY: DESIRAE. EXAMINATION GENERAL EXAMINATION: GENERALUNCOMFORTABLE . NECK:LIMITED EXTENSION, LIMITED FLEXION . LUNGS:LUNG LOVING ARE CLEAR TO AUSCULTATION BILATERALLY. GOOD MOVEMENT OF AIR . HEART:S1, S2 IN A REGULAR RATE AND RHYTHM. NO SIGNIFICANT MURMURS, RUBS OR GALLOPS NOTED . CERVICALSPECIFIC TRIGGER POINTS OVER RIGHT NECK/RHOMBOID REGION.PAIN IS AGGREVATED IN THIS REGION WITH ROJM NECK AND RIGHT ARM. 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 PROCEDURE CODES FA211 ESTABILISHED PATIENT [facility] FACILITY CHARGE DISPOSITION & COMMUNICATION FOLLOW UP POST (REASON: TPI NECK/RIGHT SHOULDER) ELECTRONICALLY SIGNED BY TAMI CORTEZ ON 02/07/2019 AT 08:41 AM EST DISCLAIMER : THIS IS A VISIT SUMMARY EXTRACTED FROM THE [employer] CHART. IT IS NOT A COPY OF THE [employer] PROGRESS NOTE. ANDREW
== END ==
LOC: M PAIN 11:00
PROVIDERS: ATTEND Nurse Practitioner Family
DX: M79.18 Myalgia, other site (principal); M96.1 Postlaminectomy syndrome, not elsewhere classified; G43.909 Migraine, unspecified, not intractable, without status migrainosus; Z88.0 Allergy status to penicillin; Z79.899 Other long term (current) drug therapy

== ENCOUNTER → 2019-02-26 | Outpatient (CLI) | payer MEDICARE ==
[~2019-02-26] MED LIST changes: +BUPIVACAINE HCL 0.25% 10 ML VIAL As Ordered ONE; +BUPIVACAINE HCL 0.25% 30 ML VIAL As Ordered ONE; +TRIAMCINOLONE ACETONIDE SUSP 40 MG/ML VIAL (J3301) As Ordered ONE
--- NOTE | 2019-03-13 03:03 | ECWPNPC ---
PATIENT NAME: BREEZY REDDY : 1960 GENDER: FEMALE VISIT DATE: 02/26/2019 DISCHARGE DATE: 02/26/19 1302 VISIT LOCKED DATE TIME: PHYSICIAN: LATIA LOPEZ MD RESOURCE: LATIA LOPEZ MD REASON FOR APPOINTMENT 1. TPI NECK/RIGHT SHOULDER HISTORY OF PRESENT ILLNESS HISTORY OF PRESENT ILLNESS: PAIN THE PATIENT DESCRIBES THE PAIN... FALL RISK SCREENING: SCREENING :NO FALLS REPORTED IN THE LAST YEAR CURRENT MEDICATIONS TAKING ZOLPIDEM TARTRATE 10 MG TABLET 1 TABLET AT BEDTIME NEEDED ORALLY ONCE A DAY, NOTES: 02/25/192199 TAKING MULTIVITAMIN 1 CAP(S) ORALLY DAILY, NOTES: 02/26/19599 TAKING AMITRIPTYLINE HCL 50 MG TABLET 1 TABLET ORALLY EVERY 8 HRS NEEDED FOR PAIN MDD2, NOTES: 02/25/192199 TAKING TIZANIDINE HCL 4 MG TABLET 1-1 1/2 TAB ORALLY Q8H PRN, NOTES: 02/25/192199 TAKING GABAPENTIN 300 MG CAPSULE 1 CAPSULE ORALLY BEFORE BEDTIME FOR PAIN, NOTES: 02/25/192199 TAKING IBUPROFEN 800 MG TABLET 1 TABLET WITH FOOD ORALLY THREE TIMES A DAY FOR PAIN, NOTES: 02/26/19599 MEDICATION LIST REVIEWED AND RECONCILED WITH THE PATIENT PAST MEDICAL HISTORY MIGRAINES CERVICAL DISC DISORDER WITH RADICULOPATHY OF CERVICOTHORACIC REGION MYALGIA OSTEOARTHRTIS ALLERGIES PENICILLIN (FOR ALLERGIES USE ONLY): RASH - ALLERGY SURGICAL HISTORY SURGURIES TO BOTH KNEES (ACL AND SCOPES) SURGURY TO RIGHT SHOULDER -ROTATOR CUFF AND REPAIR 2002 SURGURY TO NECK 2003 FAMILY HISTORY FATHER: , DIAGNOSED WITH DIABETES, HYPERTENSION, UNSPECIFIED HEART DISEASE, UNSPECIFIED CEREBRAL ARTERY OCCLUSION WITH CEREBRAL INFARCTION MOTHER: , DIABETES, HYPERTENSION, UNSPECIFIED HEART DISEASE, UNSPECIFIED CEREBRAL ARTERY OCCLUSION WITH CEREBRAL INFARCTION SIBLINGS: ALIVE, SISTER-OSTEOARTHRITIS AND OSTEOPAROSIS 1DAUGHTER(S) - HEALTHY. SOCIAL HISTORY GENERAL: TOBACCO USE ARE YOU A: NONSMOKER. PAIN CLINIC PFS, CLERGY, PUBLIC HEALTH REFERRALS PFS REFERRAL NEEDED?NO CLERGY REFERRAL NEEDED?NO PUBLIC HEALTH REFERRAL NEEDED?NO WAS THE PROVIDER NOTIFIED OF ANY PERTINENT INFO? N/A HAS THE PATIENT BEEN EDUCATED REGARDING HIS/HER PLAN OF CARE?YES HAS THE PATIENT BEEN EDUCATED REGARDING PAIN, THE RISK FOR PAIN, THE IMPORTANCE OF EFFECTIVE PAIN MANAGEMENT, AND THE PAIN ASSESSMENT PROCESS?YES LATEX QUESTIONNAIRE LATEX ALLERGY : HAVE YOU EVER DEVELOPED ANY TYPE OF REACTION AFTER HANDLING LATEX PRODUCTS SUCH RUBBER GLOVES, CONDOMS, DIAPHRAGMS, BALLOONS, SOCKS, OR UNDERWEAR?NO LATEX ALLERGY : HAVE YOU EVER DEVELOPED ANY TYPE OF REACTION DURING OR AFTER DENTAL APPOINTMENT, VAGINAL/RECTAL EXAMINATION, SURGICAL PROCEDURE, OR ANY OTHER EXPOSURE?NO DATE ASKED : 09/19/2018 LATEX RISK : HAVE YOU EVER HAD ANY DIFFICULTY BREATHING OR HIVES AFTER EATING OR HANDLING ANY FRUITS, OR VEGETABLES; SUCH KIWI, BANANAS, STONE FRUITS, OR CHESTNUTSNO LATEX RISK : DO YOU HAVE A PREVIOUS PERSONAL HISTORY OF MORE THAN NINE SURGERIES, SPINA BIFIDA, OR REPEATED CATHERIZATIONS? NO LATEX RISK : ARE YOU FREQUENTLY EXPOSED TO LATEX PRODUCTS IN YOUR OCCUPATION?NO CAFFEINE CAFFEINE USE?YES HOW OFTEN AND HOW MUCH? ONCE A [employer] ADVANCE DIRECTIVE ADVANCE DIRECTIVE DISCUSSED WITH PATIENT:YES HEALTH CARE PROXY DAUGHTER MAIDA REDDY [phone] ALSO HAS POA AND LIVING WILL EDUCATION LEVEL OF EDUCATION:NOT FINISHED COLLEGE JEW [id number] OTHER LANGUAGE LANGUAGES SPOKEN:ITALIAN DOMESTIC VIOLENCE DO YOU FEEL SAFE IN YOUR ENVIRONMENT?YES ALCOHOL SCREENING DID YOU HAVE A DRINK CONTAINING ALCOHOL IN THE PAST YEAR?NO POINTS0 INTERPRETATIONNEGATIVE RECREATIONAL DRUG USE DRUG USE?NO LEARNING BARRIERS / SPECIAL NEEDS BARRIERS TO LEARNING?NO HEARING IMPAIRED?NO VISION IMPAIRED?YES COGNITIVELY IMPAIRED?NO :CORRECTIVE LENSES READING READINESS TO LEARN?YES LEARNING PREFERENCES?NO LEARNING CAPABILITIES PRESENT?YES EMOTIONAL BARRIERS?NO SPECIAL DEVICES?NO HUMAN FACTORS SCIENTIST NEEDED?NO REVIEWED WITH PT 11/19/17 0945 LASREVIEWED WITH PT 12/20/17 0955 LASREVIEWED WITH PT 04/23/18 0845 LAS06/19/18 REVIEWED WITH PT. AD09/19/18 REVIEWED WITH PT. RAFAELWED WITH PATIENT 11/13/18 1030 NLJREVIEWED WITH PATIENT 01/24/19 1122 JS. HOSPITALIZATION/MAJOR DIAGNOSTIC PROCEDURE SURGERY RELATED CHILD REVIEW OF SYSTEMS REVIEWED BY: PROVIDER: . CONSTITUTIONAL: ANY CHANGE IN YOUR MEDICAL CONDITION? NO . CHILLS NO . FEVER NO . INFECTION: DO YOU HAVE NEW INFECTIONS? NO . DO YOU HAVE HISTORY OF MRSA? NO . MUSCULOSKELETAL: ANY NEW PATTERNS OF PAIN OR NUMBNESS? NO . GASTROENTEROLOGY: ANY NEW CHANGE IN BOWEL CONTROL? NO . GENITOURINARY: ANY NEW CHANGE IN BLADDER CONTROL? NO . IS THERE A CHANCE YOU COULD BE ? NO . HEMATOLOGY/LYMPH: DO YOU TAKE ANY BLOOD THINNERS? (FOR EXAMPLE- COUMADIN, PLAVIX, AGGRENOX, PLATEL, PRADAXA, OR XARELTO) NO . WHEN WAS YOUR LAST DOSE? DATE: TIME: . NEUROLOGY: HAVE YOU FALLEN IN THE PAST 12 MONTHS? NO . ANY NEW EXTREMITY NUMBNESS OR WEAKNESS? NO . CARDIOLOGY: DO YOU HAVE A PACEMAKER OR DEFIBRILLATOR? NO . RESPIRATORY: HAVE YOU BEEN SICK IN THE PAST WEEK? NO . FEVER NO . FLU LIKE SYMPTOMS? NO . COUGH NO . INTEGUMENTARY: DO YOU HAVE ANY RASHES OR OPEN SORES? NO . ALLERGIC/IMMUNO: ARE YOU ALLERGIC TO IV DYE? NO . ANY NEW ALLERGIES? NO . PSYCHIATRIC: DO YOU HAVE THOUGHTS OF HURTING YOURSELF OR SOMEONE ELSE? NO . ARE YOU ABUSED, NEGLECTED, OR IN AN UNSAFE ENVIRONMENT? NO . ENDOCRINOLOGY: ARE YOU DIABETIC? NO . OTHER: DO YOU NEED ANY PRESCRIPTIONS? NO . IF YES, PLEASE LIST: ____ . ANY NEW PROBLEMS WITH YOUR MEDICATIONS? NO . WHEN DID YOU LAST EAT? [id number] . WHEN DID YOU LAST DRINK? [id number] . WHAT DID YOU LAST DRINK? WATER . NAME OF PERSON DRIVING YOU HOME? SHELBY . DO YOU HAVE ANY OTHER QUESTIONS OR CONCERNS NO . VITAL SIGNS WT 208.4 LBS, HT 66 IN, BMI 33.63 INDEX, BP 156/89 MM HG, HR 66 /MIN, RR 18 /MIN, TEMP 96.8 F, OXYGEN SAT % 99%, NA INITIALS SC 11:27, REVIEWED BY: EM. ASSESSMENTS MYALGIA, OTHER SITE - M79.18 (PRIMARY) PROCEDURES PN TRIGGER POINT INJECTION WITH STEROIDS PRE PROCEDURE DIAGNOSIS 1. MYALGIA 2. PAIN AT BILATERAL NECK AREA AND RIGHT SHOULDER AREA. POST PROCEDURE DIAGNOSIS 1. MYALGIA 2. PAIN AT BILATERAL NECK AREA AND RIGHT SHOULDER AREA. PROCEDURE TRIGGER POINT INJECTION AT RIGHT AND LEFT NECK AREA AND RIGHT SHOULDER AREA. SURGEON DR. LATIA LOPEZ CARDIOVASCULAR TECHNOLOGIST NONE ANESTHESIA LOCAL PRE PROCEDURE NOTE THE PATIENT HAS A HISTORY OF CHRONIC PAIN AT THE RIGHT AND LEFT NECK AREA AND RIGHT SHOULDER AREA. I EVALUATED THE PATIENT AND REVIEWED THE CHART. THERE IS EVIDENCE OF BANDS OF TISSUE WITH RESTRICTION OF MOVEMENT AND PRESENCE OF TRIGGER POINT AT THE AFFECTED AREA. I WENT OVER THE RISKS, ALTERNATIVES, AND BENEFITS ASSOCIATED WITH THIS PROCEDURE. THE PATIENT WOULD LIKE TO PROCEED AND GIVES CONSENT TO PERFORM THE PROCEDURE. THE PATIENT DENIES UNEXPLAINABLE WEIGHT LOSS, FEVER, CHILLS, OR NEW CHANGES IN URINARY OR BOWEL CONTROL DESCRIPTION OF PROCEDURE THE PATIENT WAS BROUGHT TO THE PROCEDURE ROOM AND PLACED IN THE SITTING POSITION. THE AREA WAS CLEANED WITH ALCOHOL. THE PROCEDURE WAS DONE USING ASEPTIC STERILE TECHNIQUE. I CHECKED LATERALITY AND THE LEVEL WHERE THE PROCEDURE WAS GOING TO BE PERFORMED WITH THE PATIENT AND THE SUPPORTING STAFF AT THE MOMENT OF THE TIME OUT IN THE PROCEDURE ROOM. USING A 25-GAUGE NEEDLE, TRIGGER POINTS WERE INJECTED AT THE RIGHT AND LEFT NECK AREA AND RIGHT SHOULDER AREA WITH A TOTAL OF 40 ML OF BUPIVACAINE 0.25% AND KENALOG 40 MG. THERE WAS NO EVIDENCE OF BLOOD, PARESTHESIA OR CEREBROSPINAL FLUID DURING THE PROCEDURE. THE PATIENT WAS SENT TO THE RECOVERY ROOM. THE PATIENT WAS MOVING THE EXTREMITIES AND DOING WELL. THERE WAS NO COMPLICATION DURING THE PROCEDURE POST PROCEDURE NOTE THE PATIENT WILL BE SEEN IN A FOLLOW UP IN THE NEXT FEW WEEKS. I AM LOOKING FOR LONG LASTING PAIN RELIEF WITH THESE INJECTIONS FOR THE PATIENT. INSTRUCTIONS WERE GIVEN, QUESTIONS WERE ANSWERED, AND THE PATIENT EXPRESSED UNDERSTANDING AND AGREES WITH THE PLAN. I, BRIAN GAFFNEY, DOCUMENTED THE ABOVE INFORMATION ACTING A SCRIBE FOR DR. LOPEZ. I HAVE REVIEWED THE ABOVE DOCUMENT, WRITTEN BY BRIAN GAFFNEY SCRIBMalena AND I VERIFY THAT IT IS ACCURATE. PROCEDURE CODES 00911 INJECT TRIGGER POINTS 3/> DISPOSITION & COMMUNICATION FOLLOW UP 3 WEEKS ELECTRONICALLY SIGNED BY LATIA LOPEZ MD, MD ON 03/12/2019 AT 09:55 AM EST DISCLAIMER : THIS IS A VISIT SUMMARY EXTRACTED FROM THE [employer] CHART. IT IS NOT A COPY OF THE [employer] PROGRESS NOTE. MTDD
== END ==
LOC: M PAIN 11:30
PROVIDERS: ATTEND Anesthesiology
DX: M79.18 Myalgia, other site (principal); G43.909 Migraine, unspecified, not intractable, without status migrainosus; Z88.0 Allergy status to penicillin; Z79.899 Other long term (current) drug therapy
CPT/HCPCS: 20553; J3301

== ENCOUNTER → 2019-03-14 | Outpatient (CLI) | payer MEDICARE ==
[~2019-03-14] MED LIST changes: -BUPIVACAINE HCL 0.25% 10 ML VIAL As Ordered ONE; -BUPIVACAINE HCL 0.25% 30 ML VIAL As Ordered ONE; -TRIAMCINOLONE ACETONIDE SUSP 40 MG/ML VIAL (J3301) As Ordered ONE
--- NOTE | 2019-03-15 04:21 | ECWPNPC ---
PATIENT NAME: BREEZY REDDY : 1960 GENDER: FEMALE VISIT DATE: 03/14/2019 DISCHARGE DATE: 03/14/19 0944 VISIT LOCKED DATE TIME: PHYSICIAN: NICHOLAS SAINI RESOURCE: NICHOLAS SAINI REASON FOR APPOINTMENT 1. POST TPI HISTORY OF PRESENT ILLNESS HISTORY OF PRESENT ILLNESS: HERE FOR POST PROCEDURE F/U.HAD TRIGGER POINTS RIGHT NECK AND SHOULDER ON 02-26-19.REPORTING >50% IMPROVEMENT IN PAIN POST PROCEDURE.RATING PAIN VAS 2/10.REPORTING IMPROVED SLEEP POST PROCEDURE.HISTORY TWO CERVICAL SURGERIES /FUSION LAST ONE DONE IN 2016. PAIN THE PATIENT DESCRIBES THE PAIN... FALL RISK SCREENING: SCREENING :NO FALLS REPORTED IN THE LAST YEAR CURRENT MEDICATIONS TAKING ZOLPIDEM TARTRATE 10 MG TABLET 1 TABLET AT BEDTIME NEEDED ORALLY ONCE A DAY TAKING MULTIVITAMIN 1 CAP(S) ORALLY DAILY TAKING AMITRIPTYLINE HCL 50 MG TABLET 1 TABLET ORALLY EVERY 8 HRS NEEDED FOR PAIN MDD2 TAKING TIZANIDINE HCL 4 MG TABLET 1-1 1/2 TAB ORALLY Q8H PRN TAKING GABAPENTIN 300 MG CAPSULE 1 CAPSULE ORALLY BEFORE BEDTIME FOR PAIN TAKING IBUPROFEN 800 MG TABLET 1 TABLET WITH FOOD ORALLY THREE TIMES A DAY FOR PAIN MEDICATION LIST REVIEWED AND RECONCILED WITH THE PATIENT PAST MEDICAL HISTORY MIGRAINES CERVICAL DISC DISORDER WITH RADICULOPATHY OF CERVICOTHORACIC REGION MYALGIA OSTEOARTHRTIS ALLERGIES PENICILLIN (FOR ALLERGIES USE ONLY): RASH - ALLERGY SURGICAL HISTORY SURGURIES TO BOTH KNEES (ACL AND SCOPES) SURGURY TO RIGHT SHOULDER -ROTATOR CUFF AND REPAIR 2002 SURGURY TO NECK 2003 FAMILY HISTORY FATHER: , DIAGNOSED WITH DIABETES, HYPERTENSION, UNSPECIFIED HEART DISEASE, UNSPECIFIED CEREBRAL ARTERY OCCLUSION WITH CEREBRAL INFARCTION MOTHER: , DIABETES, HYPERTENSION, UNSPECIFIED HEART DISEASE, UNSPECIFIED CEREBRAL ARTERY OCCLUSION WITH CEREBRAL INFARCTION SIBLINGS: ALIVE, SISTER-OSTEOARTHRITIS AND OSTEOPAROSIS 1DAUGHTER(S) - HEALTHY. SOCIAL HISTORY GENERAL: TOBACCO USE ARE YOU A: NONSMOKER. PAIN CLINIC PFS, CLERGY, PUBLIC HEALTH REFERRALS PFS REFERRAL NEEDED?NO CLERGY REFERRAL NEEDED?NO PUBLIC HEALTH REFERRAL NEEDED?NO WAS THE PROVIDER NOTIFIED OF ANY PERTINENT INFO? N/A HAS THE PATIENT BEEN EDUCATED REGARDING HIS/HER PLAN OF CARE?YES HAS THE PATIENT BEEN EDUCATED REGARDING PAIN, THE RISK FOR PAIN, THE IMPORTANCE OF EFFECTIVE PAIN MANAGEMENT, AND THE PAIN ASSESSMENT PROCESS?YES LATEX QUESTIONNAIRE LATEX ALLERGY : HAVE YOU EVER DEVELOPED ANY TYPE OF REACTION AFTER HANDLING LATEX PRODUCTS SUCH RUBBER GLOVES, CONDOMS, DIAPHRAGMS, BALLOONS, SOCKS, OR UNDERWEAR?NO LATEX ALLERGY : HAVE YOU EVER DEVELOPED ANY TYPE OF REACTION DURING OR AFTER DENTAL APPOINTMENT, VAGINAL/RECTAL EXAMINATION, SURGICAL PROCEDURE, OR ANY OTHER EXPOSURE?NO DATE ASKED : 09/19/2018 LATEX RISK : HAVE YOU EVER HAD ANY DIFFICULTY BREATHING OR HIVES AFTER EATING OR HANDLING ANY FRUITS, OR VEGETABLES; SUCH KIWI, BANANAS, STONE FRUITS, OR CHESTNUTSNO LATEX RISK : DO YOU HAVE A PREVIOUS PERSONAL HISTORY OF MORE THAN NINE SURGERIES, SPINA BIFIDA, OR REPEATED CATHERIZATIONS? NO LATEX RISK : ARE YOU FREQUENTLY EXPOSED TO LATEX PRODUCTS IN YOUR OCCUPATION?NO CAFFEINE CAFFEINE USE?YES HOW OFTEN AND HOW MUCH? ONCE A [place] ADVANCE DIRECTIVE ADVANCE DIRECTIVE DISCUSSED WITH PATIENT:YES HEALTH CARE PROXY DAUGHTER MAIDA REDDY [phone] ALSO HAS POA AND LIVING WILL EDUCATION LEVEL OF EDUCATION:NOT FINISHED COLLEGE CONFUCIANIST [id number] OTHER LANGUAGE LANGUAGES SPOKEN:SENEGALESE DOMESTIC VIOLENCE DO YOU FEEL SAFE IN YOUR ENVIRONMENT?YES ALCOHOL SCREENING DID YOU HAVE A DRINK CONTAINING ALCOHOL IN THE PAST YEAR?NO POINTS0 INTERPRETATIONNEGATIVE RECREATIONAL DRUG USE DRUG USE?NO LEARNING BARRIERS / SPECIAL NEEDS BARRIERS TO LEARNING?NO HEARING IMPAIRED?NO VISION IMPAIRED?YES COGNITIVELY IMPAIRED?NO :CORRECTIVE LENSES READING READINESS TO LEARN?YES LEARNING PREFERENCES?NO LEARNING CAPABILITIES PRESENT?YES EMOTIONAL BARRIERS?NO SPECIAL DEVICES?NO RN SURGICAL NEEDED?NO REVIEWED WITH PT 11/19/17 0945 LASREVIEWED WITH PT 12/20/17 0955 LASREVIEWED WITH PT 04/23/18 0845 LAS06/19/18 REVIEWED WITH PT. AD09/19/18 REVIEWED WITH PT. ROSALINDIEWED WITH PATIENT 11/13/18 1030 NLJREVIEWED WITH PATIENT 01/24/19 1122 JS. HOSPITALIZATION/MAJOR DIAGNOSTIC PROCEDURE SURGERY RELATED CHILD REVIEW OF SYSTEMS REVIEWED BY: PROVIDER: NICHOLAS GARRETT . CONSTITUTIONAL: ANY CHANGE IN YOUR MEDICAL CONDITION? NO . CHILLS NO . FEVER NO . INFECTION: DO YOU HAVE NEW INFECTIONS? NO . DO YOU HAVE HISTORY OF MRSA? NO . MUSCULOSKELETAL: ANY NEW PATTERNS OF PAIN OR NUMBNESS? NO . GASTROENTEROLOGY: ANY NEW CHANGE IN BOWEL CONTROL? NO . GENITOURINARY: ANY NEW CHANGE IN BLADDER CONTROL? NO . IS THERE A CHANCE YOU COULD BE ? NO . HEMATOLOGY/LYMPH: DO YOU TAKE ANY BLOOD THINNERS? (FOR EXAMPLE- COUMADIN, PLAVIX, AGGRENOX, PLATEL, PRADAXA, OR XARELTO) NO . WHEN WAS YOUR LAST DOSE? DATE: TIME: . NEUROLOGY: HAVE YOU FALLEN IN THE PAST 12 MONTHS? NO . ANY NEW EXTREMITY NUMBNESS OR WEAKNESS? NO . CARDIOLOGY: DO YOU HAVE A PACEMAKER OR DEFIBRILLATOR? NO . RESPIRATORY: HAVE YOU BEEN SICK IN THE PAST WEEK? NO . FEVER NO . FLU LIKE SYMPTOMS? NO . COUGH NO . INTEGUMENTARY: DO YOU HAVE ANY RASHES OR OPEN SORES? NO . ALLERGIC/IMMUNO: ARE YOU ALLERGIC TO IV DYE? NO . ANY NEW ALLERGIES? NO . PSYCHIATRIC: DO YOU HAVE THOUGHTS OF HURTING YOURSELF OR SOMEONE ELSE? NO . ARE YOU ABUSED, NEGLECTED, OR IN AN UNSAFE ENVIRONMENT? NO . ENDOCRINOLOGY: ARE YOU DIABETIC? NO . OTHER: DO YOU NEED ANY PRESCRIPTIONS? NO . IF YES, PLEASE LIST: ____ . ANY NEW PROBLEMS WITH YOUR MEDICATIONS? NO . WHEN DID YOU LAST EAT? ____ . WHEN DID YOU LAST DRINK? ____ . WHAT DID YOU LAST DRINK? ____ . NAME OF PERSON DRIVING YOU HOME? ____ . DO YOU HAVE ANY OTHER QUESTIONS OR CONCERNS NO . VITAL SIGNS WT 203.4 LBS, HT 66 IN, BMI 32.83 INDEX, BP 158/87 MM HG, HR 58 /MIN, RR 18 /MIN, TEMP 97.3 F, OXYGEN SAT % 98%, NA INITIALS SC 09:20. EXAMINATION GENERAL EXAMINATION: GENERALALERT,NO DISTRESS. NECK:LIMITED EXTENSION, LIMITED FLEXION . LUNGS:LUNG LOVING ARE CLEAR TO AUSCULTATION BILATERALLY. GOOD MOVEMENT OF AIR . HEART:S1, S2 IN A REGULAR RATE AND RHYTHM. NO SIGNIFICANT MURMURS, RUBS OR GALLOPS NOTED . 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 PROCEDURE CODES FA211 ESTABILISHED PATIENT [facility] FAC[facility] CHARGE DISPOSITION & COMMUNICATION FOLLOW UP END OF MAY (REASON: NECK PAIN) ELECTRONICALLY SIGNED BY TAMI CORTEZ ON 03/14/2019 AT 11:09 AM EST DISCLAIMER : THIS IS A VISIT SUMMARY EXTRACTED FROM THE [employer] CHART. IT IS NOT A COPY OF THE [employer] PROGRESS NOTE. ANDREW
== END ==
LOC: M PAIN 09:00
PROVIDERS: ATTEND Nurse Practitioner Family
DX: M79.18 Myalgia, other site (principal); M96.1 Postlaminectomy syndrome, not elsewhere classified; G43.909 Migraine, unspecified, not intractable, without status migrainosus; Z88.0 Allergy status to penicillin; Z79.899 Other long term (current) drug therapy

== ENCOUNTER → 2019-05-26 | Outpatient (CLI) | payer MEDICARE ==
--- NOTE | 2019-05-28 06:01 | ECWPNPC ---
PATIENT NAME: BREEZY REDDY : 1960 GENDER: FEMALE VISIT DATE: 05/26/2019 DISCHARGE DATE: 05/26/19 1003 VISIT LOCKED DATE TIME: PHYSICIAN: NICHOLAS SAINI RESOURCE: NICHOLAS SAINI REASON FOR APPOINTMENT 1. NECK/SHOULDERS HISTORY OF PRESENT ILLNESS HISTORY OF PRESENT ILLNESS: HERE FOR FOLLOW-UP OF PERSISTENT RIGHT NECK PAIN. PAIN HAS ESCALATED OVER THE PAST FEW WEEKS. RATING PAIN LEVEL 1-9/10 VAS. PAIN IS DESCRIBED CONTINUOUS, SHARP AND ACHING. RESPONDS WELL TO TRIGGER POINT INJECTIONS. PAIN THE PATIENT DESCRIBES THE PAIN... FALL RISK SCREENING: SCREENING :NO FALLS REPORTED IN THE LAST YEAR CURRENT MEDICATIONS TAKING ZOLPIDEM TARTRATE 10 MG TABLET 1 TABLET AT BEDTIME NEEDED ORALLY ONCE A DAY TAKING MULTIVITAMIN 1 CAP(S) ORALLY DAILY TAKING AMITRIPTYLINE HCL 50 MG TABLET 1 TABLET ORALLY EVERY 8 HRS NEEDED FOR PAIN MDD2 TAKING TIZANIDINE HCL 4 MG TABLET 1-1 1/2 TAB ORALLY Q8H PRN TAKING GABAPENTIN 300 MG CAPSULE 1 CAPSULE ORALLY BEFORE BEDTIME FOR PAIN TAKING IBUPROFEN 800 MG TABLET 1 TABLET WITH FOOD ORALLY THREE TIMES A DAY FOR PAIN MEDICATION LIST REVIEWED AND RECONCILED WITH THE PATIENT PAST MEDICAL HISTORY MIGRAINES CERVICAL DISC DISORDER WITH RADICULOPATHY OF CERVICOTHORACIC REGION MYALGIA OSTEOARTHRTIS ALLERGIES PENICILLIN (FOR ALLERGIES USE ONLY): RASH - ALLERGY SURGICAL HISTORY SURGURIES TO BOTH KNEES (ACL AND SCOPES) SURGURY TO RIGHT SHOULDER -ROTATOR CUFF AND REPAIR 2002 SURGURY TO NECK 2003 FAMILY HISTORY FATHER: , DIAGNOSED WITH DIABETES, HYPERTENSION, UNSPECIFIED HEART DISEASE, UNSPECIFIED CEREBRAL ARTERY OCCLUSION WITH CEREBRAL INFARCTION MOTHER: , DIABETES, HYPERTENSION, UNSPECIFIED HEART DISEASE, UNSPECIFIED CEREBRAL ARTERY OCCLUSION WITH CEREBRAL INFARCTION SIBLINGS: ALIVE, SISTER-OSTEOARTHRITIS AND OSTEOPAROSIS 1DAUGHTER(S) - HEALTHY. SOCIAL HISTORY GENERAL: TOBACCO USE ARE YOU A: NONSMOKER. PAIN CLINIC PFS, CLERGY, PUBLIC HEALTH REFERRALS PFS REFERRAL NEEDED?NO CLERGY REFERRAL NEEDED?NO PUBLIC HEALTH REFERRAL NEEDED?NO WAS THE PROVIDER NOTIFIED OF ANY PERTINENT INFO? N/A HAS THE PATIENT BEEN EDUCATED REGARDING HIS/HER PLAN OF CARE?YES HAS THE PATIENT BEEN EDUCATED REGARDING PAIN, THE RISK FOR PAIN, THE IMPORTANCE OF EFFECTIVE PAIN MANAGEMENT, AND THE PAIN ASSESSMENT PROCESS?YES LATEX QUESTIONNAIRE LATEX ALLERGY : HAVE YOU EVER DEVELOPED ANY TYPE OF REACTION AFTER HANDLING LATEX PRODUCTS SUCH RUBBER GLOVES, CONDOMS, DIAPHRAGMS, BALLOONS, SOCKS, OR UNDERWEAR?NO LATEX ALLERGY : HAVE YOU EVER DEVELOPED ANY TYPE OF REACTION DURING OR AFTER DENTAL APPOINTMENT, VAGINAL/RECTAL EXAMINATION, SURGICAL PROCEDURE, OR ANY OTHER EXPOSURE?NO DATE ASKED : 09/19/2018 LATEX RISK : HAVE YOU EVER HAD ANY DIFFICULTY BREATHING OR HIVES AFTER EATING OR HANDLING ANY FRUITS, OR VEGETABLES; SUCH KIWI, BANANAS, STONE FRUITS, OR CHESTNUTSNO LATEX RISK : DO YOU HAVE A PREVIOUS PERSONAL HISTORY OF MORE THAN NINE SURGERIES, SPINA BIFIDA, OR REPEATED CATHERIZATIONS? NO LATEX RISK : ARE YOU FREQUENTLY EXPOSED TO LATEX PRODUCTS IN YOUR OCCUPATION?NO CAFFEINE CAFFEINE USE?YES HOW OFTEN AND HOW MUCH? ONCE A [place] ADVANCE DIRECTIVE ADVANCE DIRECTIVE DISCUSSED WITH PATIENT:YES HEALTH CARE PROXY DAUGHTER MAIDA REDDY [phone] ALSO HAS POA AND LIVING WILL EDUCATION LEVEL OF EDUCATION:NOT FINISHED COLLEGE ZOROASTRIANISM [id number] OTHER LANGUAGE LANGUAGES SPOKEN:ARABIC DOMESTIC VIOLENCE DO YOU FEEL SAFE IN YOUR ENVIRONMENT?YES ALCOHOL SCREENING DID YOU HAVE A DRINK CONTAINING ALCOHOL IN THE PAST YEAR?NO POINTS0 INTERPRETATIONNEGATIVE RECREATIONAL DRUG USE DRUG USE?NO LEARNING BARRIERS / SPECIAL NEEDS BARRIERS TO LEARNING?NO HEARING IMPAIRED?NO VISION IMPAIRED?YES COGNITIVELY IMPAIRED?NO :CORRECTIVE LENSES READING READINESS TO LEARN?YES LEARNING PREFERENCES?NO LEARNING CAPABILITIES PRESENT?YES EMOTIONAL BARRIERS?NO SPECIAL DEVICES?NO MORTGAGE LOAN OFFICER ORIGINATOR NEEDED?NO REVIEWED WITH PT 11/19/17 0945 LASREVIEWED WITH PT 12/20/17 0955 LASREVIEWED WITH PT 04/23/18 0845 LAS06/19/18 REVIEWED WITH PT. AD09/19/18 REVIEWED WITH PT. BOLIVARD WITH PATIENT 11/13/18 1030 NLJREVIEWED WITH PATIENT 01/24/19 1122 JS. HOSPITALIZATION/MAJOR DIAGNOSTIC PROCEDURE SURGERY RELATED CHILD REVIEW OF SYSTEMS REVIEWED BY: PROVIDER: NICHOLAS GARRETT . CONSTITUTIONAL: ANY CHANGE IN YOUR MEDICAL CONDITION? NO . CHILLS NO . FEVER NO . INFECTION: DO YOU HAVE NEW INFECTIONS? NO . DO YOU HAVE HISTORY OF MRSA? NO . MUSCULOSKELETAL: ANY NEW PATTERNS OF PAIN OR NUMBNESS? NO . GASTROENTEROLOGY: ANY NEW CHANGE IN BOWEL CONTROL? NO . GENITOURINARY: ANY NEW CHANGE IN BLADDER CONTROL? NO . IS THERE A CHANCE YOU COULD BE ? NO . HEMATOLOGY/LYMPH: DO YOU TAKE ANY BLOOD THINNERS? (FOR EXAMPLE- COUMADIN, PLAVIX, AGGRENOX, PLATEL, PRADAXA, OR XARELTO) NO . WHEN WAS YOUR LAST DOSE? DATE: TIME: . NEUROLOGY: HAVE YOU FALLEN IN THE PAST 12 MONTHS? NO . ANY NEW EXTREMITY NUMBNESS OR WEAKNESS? NO . CARDIOLOGY: DO YOU HAVE A PACEMAKER OR DEFIBRILLATOR? NO . RESPIRATORY: HAVE YOU BEEN SICK IN THE PAST WEEK? NO . FEVER NO . FLU LIKE SYMPTOMS? NO . COUGH NO . INTEGUMENTARY: DO YOU HAVE ANY RASHES OR OPEN SORES? NO . ALLERGIC/IMMUNO: ARE YOU ALLERGIC TO IV DYE? NO . ANY NEW ALLERGIES? NO . PSYCHIATRIC: DO YOU HAVE THOUGHTS OF HURTING YOURSELF OR SOMEONE ELSE? NO . ARE YOU ABUSED, NEGLECTED, OR IN AN UNSAFE ENVIRONMENT? NO . ENDOCRINOLOGY: ARE YOU DIABETIC? NO . OTHER: DO YOU NEED ANY PRESCRIPTIONS? NO . IF YES, PLEASE LIST: ____ . ANY NEW PROBLEMS WITH YOUR MEDICATIONS? NO . WHEN DID YOU LAST EAT? ____ . WHEN DID YOU LAST DRINK? ____ . WHAT DID YOU LAST DRINK? ____ . NAME OF PERSON DRIVING YOU HOME? ____ . DO YOU HAVE ANY OTHER QUESTIONS OR CONCERNS YES PT WOULD LIKE TO DISCUSS TRIGGER POINT INJECTIONS AGAIN . VITAL SIGNS WT 208.5 LBS, HT 66 IN, BMI 33.65 INDEX, BP 163/79 MM HG, HR 73 /MIN, RR 18 /MIN, TEMP 97.6 F, OXYGEN SAT % 98%, SAFE IN ENV? (Y/N) YES, NA INITIALS [id number], REVIEWED BY: MARSHA. EXAMINATION GENERAL EXAMINATION: GENERALUNCOMFORTABLE . NECK:LIMITED EXTENSION, LIMITED FLEXION . LUNGS:LUNG LOVING ARE CLEAR TO AUSCULTATION BILATERALLY. GOOD MOVEMENT OF AIR . HEART:S1, S2 IN A REGULAR RATE AND RHYTHM. NO SIGNIFICANT MURMURS, RUBS OR GALLOPS NOTED . CERVICAL:SPECIFIC TRIGGER POINTS OVER RIGHT NECK/RHOMBOID REGION.PAIN IS AGGREVATED IN THIS REGION WITH ROJM NECK AND RIGHT ARM. 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 PREVENTIVE MEDICINE PAIN CLINIC TEACHING: PROCEDURE TEACHING PRE TRIGGER POINT INJECTION INSTRUCTIONS REVIEWED WITH PT. VERBALIZED UNDERSTANDING.. PROCEDURE CODES FA211 ESTABILISHED PATIENT [facility] CHARGE DISPOSITION & COMMUNICATION FOLLOW UP POST (REASON: TPI RIGHT NECK) ELECTRONICALLY SIGNED BY TAMI CORTEZ ON 05/27/2019 AT 09:43 AM EST DISCLAIMER : THIS IS A VISIT SUMMARY EXTRACTED FROM THE [employer] CHART. IT IS NOT A COPY OF THE [employer] PROGRESS NOTE. ANDREW
== END ==
LOC: M PAIN 09:00
PROVIDERS: ATTEND Nurse Practitioner Family
DX: M79.18 Myalgia, other site (principal); M96.1 Postlaminectomy syndrome, not elsewhere classified; Z79.899 Other long term (current) drug therapy; Z88.0 Allergy status to penicillin

== ENCOUNTER → 2019-07-09 | Outpatient (CLI) | payer MEDICARE ==
--- NOTE | 2019-07-21 00:12 | ECWPNPC ---
PATIENT NAME: BREEZY REDDY : 1960 GENDER: FEMALE VISIT DATE: 07/09/2019 DISCHARGE DATE: 07/09/19 1018 VISIT LOCKED DATE TIME: PHYSICIAN: LATIA LOPEZ MD RESOURCE: LATIA LOPEZ MD REASON FOR APPOINTMENT 1. NECK AND SHOULDER PAIN HISTORY OF PRESENT ILLNESS HISTORY OF PRESENT ILLNESS: PAIN THE PATIENT DESCRIBES THE PAIN... PERMISSION FROM THE PATIENT WAS RECEIVED TO DO TELEPHONE OFFICE VISIT. 59-YEAR-OLD FEMALE PATIENT WITH CHRONIC NECK AND SHOULDER PAIN. THE PATIENT DESCRIBES THE PAIN SHARP, STABBING, THROBBING, CONSTANT AND AWAKES HER FROM SLEEP WITH A PAIN SCORE RANGING FROM 7-8/10 DEPENDING ON PHYSICAL ACTIVITY. THE PATIENT STATES THAT THE PAIN IS AFFECTING HER ACTIVITIES OF DAILY LIVING, SUCH COOKING AND CLEANING. THE PATIENT HAS HAD TRIGGER POINT INJECTIONS IN THE PAST, THE LAST INJECTION DATED FEBRUARY 26, 2019. THE PATIENT STATES THAT SHE RECEIVES APPROXIMATELY 2 TO 3 MONTHS OF RELIEF FROM THE INJECTIONS. THE PATIENT'S INJECTION WAS TEMPORARILY POSTPONED DUE TO THE COVID-19 PRECAUTIONS. THE PATIENT IS CURRENTLY TAKING TIZANIDINE AND STATES THAT IT IS HELPING HER. PATIENT DENIES UNEXPLAINABLE WEIGHT LOSS, FEVER, CHILLS, NEW CHANGES ON HER URINARY OR BOWEL CONTROL. FALL RISK SCREENING: SCREENING :NO FALLS REPORTED IN THE LAST YEAR CURRENT MEDICATIONS TAKING ZOLPIDEM TARTRATE 10 MG TABLET 1 TABLET AT BEDTIME NEEDED ORALLY ONCE A DAY TAKING MULTIVITAMIN 1 CAP(S) ORALLY DAILY TAKING IBUPROFEN 800 MG TABLET 1 TABLET WITH FOOD ORALLY THREE TIMES A DAY FOR PAIN TAKING AMITRIPTYLINE HCL 50 MG TABLET 1 TABLET ORALLY EVERY 8 HRS NEEDED FOR PAIN MDD2 TAKING TIZANIDINE HCL 4 MG TABLET 1-1 1/2 TAB ORALLY Q8H PRN TAKING GABAPENTIN 300 MG CAPSULE 1 CAPSULE ORALLY BEFORE BEDTIME FOR PAIN MEDICATION LIST REVIEWED AND RECONCILED WITH THE PATIENT PAST MEDICAL HISTORY MIGRAINES CERVICAL DISC DISORDER WITH RADICULOPATHY OF CERVICOTHORACIC REGION MYALGIA OSTEOARTHRTIS ALLERGIES PENICILLIN (FOR ALLERGIES USE ONLY): RASH - ALLERGY SURGICAL HISTORY SURGURIES TO BOTH KNEES (ACL AND SCOPES) SURGURY TO RIGHT SHOULDER -ROTATOR CUFF AND REPAIR 2002 SURGURY TO NECK 2003 FAMILY HISTORY FATHER: , DIAGNOSED WITH DIABETES, HYPERTENSION, UNSPECIFIED HEART DISEASE, UNSPECIFIED CEREBRAL ARTERY OCCLUSION WITH CEREBRAL INFARCTION MOTHER: , DIABETES, HYPERTENSION, UNSPECIFIED HEART DISEASE, UNSPECIFIED CEREBRAL ARTERY OCCLUSION WITH CEREBRAL INFARCTION SIBLINGS: ALIVE, SISTER-OSTEOARTHRITIS AND OSTEOPAROSIS 1DAUGHTER(S) - HEALTHY. SOCIAL HISTORY GENERAL: TOBACCO USE ARE YOU A: NONSMOKER. LATEX QUESTIONNAIRE LATEX ALLERGY : HAVE YOU EVER DEVELOPED ANY TYPE OF REACTION AFTER HANDLING LATEX PRODUCTS SUCH RUBBER GLOVES, CONDOMS, DIAPHRAGMS, BALLOONS, SOCKS, OR UNDERWEAR?NO LATEX ALLERGY : HAVE YOU EVER DEVELOPED ANY TYPE OF REACTION DURING OR AFTER DENTAL APPOINTMENT, VAGINAL/RECTAL EXAMINATION, SURGICAL PROCEDURE, OR ANY OTHER EXPOSURE?NO LATEX RISK : HAVE YOU EVER HAD ANY DIFFICULTY BREATHING OR HIVES AFTER EATING OR HANDLING ANY FRUITS, OR VEGETABLES; SUCH KIWI, BANANAS, STONE FRUITS, OR CHESTNUTSNO LATEX RISK : DO YOU HAVE A PREVIOUS PERSONAL HISTORY OF MORE THAN NINE SURGERIES, SPINA BIFIDA, OR REPEATED CATHERIZATIONS? NO LATEX RISK : ARE YOU FREQUENTLY EXPOSED TO LATEX PRODUCTS IN YOUR OCCUPATION?NO DATE ASKED : 07/09/2019 ALCOHOL SCREENING DID YOU HAVE A DRINK CONTAINING ALCOHOL IN THE PAST YEAR?NO POINTS0 INTERPRETATIONNEGATIVE RECREATIONAL DRUG USE DRUG USE?NO CAFFEINE CAFFEINE USE?YES HOW OFTEN AND HOW MUCH? ONCE A [employer] [id number] OTHER LANGUAGE LANGUAGES SPOKEN:BERMUDIAN EDUCATION LEVEL OF EDUCATION:NOT FINISHED COLLEGE LEARNING BARRIERS / SPECIAL NEEDS BARRIERS TO LEARNING?NO HEARING IMPAIRED?NO VISION IMPAIRED?YES COGNITIVELY IMPAIRED?NO :CORRECTIVE LENSES READING READINESS TO LEARN?YES LEARNING PREFERENCES?NO LEARNING CAPABILITIES PRESENT?YES EMOTIONAL BARRIERS?NO SPECIAL DEVICES?NO NATURAL GAS PLANT TECHNICIAN NEEDED?NO DOMESTIC VIOLENCE DO YOU FEEL SAFE IN YOUR ENVIRONMENT?YES NEW PATIENT PAIN DIARY TODAY'S VISITNOTES PATIENT DESCRIBES PAIN :HAVE IT ALL THE TIME, SHARP, STABBING, THROBBING, OTHER WAKES UP FROM SLEEP FROM 0-10, WHAT LEVEL IS YOUR PAIN TODAY?10 PRECIPITATING FACTORS ANYTHING- CONSTANT ALLEVIATING FACTORS NOTHING MAKES IT BETTER PAIN CLINIC PFS, CLERGY, PUBLIC HEALTH REFERRALS PFS REFERRAL NEEDED?NO CLERGY REFERRAL NEEDED?NO PUBLIC HEALTH REFERRAL NEEDED?NO WAS THE PROVIDER NOTIFIED OF ANY PERTINENT INFO? N/A HAS THE PATIENT BEEN EDUCATED REGARDING HIS/HER PLAN OF CARE?YES HAS THE PATIENT BEEN EDUCATED REGARDING PAIN, THE RISK FOR PAIN, THE IMPORTANCE OF EFFECTIVE PAIN MANAGEMENT, AND THE PAIN ASSESSMENT PROCESS?YES ADVANCE DIRECTIVE ADVANCE DIRECTIVE DISCUSSED WITH PATIENT:YES HEALTH CARE PROXY DAUGHTER MAIDA REDDY [phone] ALSO HAS POA AND LIVING WILL REVIEWED WITH PT 11/19/17 0945 LASREVIEWED WITH PT 12/20/17 0955 LASREVIEWED WITH PT 04/23/18 0845 LAS06/19/18 REVIEWED WITH PT. AD09/19/18 REVIEWED WITH PT. ADREVIEWED WITH PATIENT 11/13/18 1030 NLJREVIEWED WITH PATIENT 01/24/19 1122 JS. HOSPITALIZATION/MAJOR DIAGNOSTIC PROCEDURE SURGERY RELATED CHILD REVIEW OF SYSTEMS REVIEWED BY: PROVIDER: LATIA LOPEZ MD . CONSTITUTIONAL: ANY CHANGE IN YOUR MEDICAL CONDITION? NO . CHILLS NO . FEVER NO . INFECTION: DO YOU HAVE NEW INFECTIONS? NO . DO YOU HAVE HISTORY OF MRSA? NO . MUSCULOSKELETAL: ANY NEW PATTERNS OF PAIN OR NUMBNESS? NO- PATIENT STATES N NEW PATTERNS OF PAIN, STATES ANAND CONTINUES TO HAVE CONSTANT PAIN IN NECK DOWN INTO RIGHT SHOULDER AND HAND, STATES SHE ALSO EXPERIENCES NUMBNESS IN HAND WELL. . GASTROENTEROLOGY: ANY NEW CHANGE IN BOWEL CONTROL? NO . GENITOURINARY: ANY NEW CHANGE IN BLADDER CONTROL? NO . IS THERE A CHANCE YOU COULD BE ? NO . HEMATOLOGY/LYMPH: DO YOU TAKE ANY BLOOD THINNERS? (FOR EXAMPLE- COUMADIN, PLAVIX, AGGRENOX, PLATEL, PRADAXA, OR XARELTO) NO . WHEN WAS YOUR LAST DOSE? DATE: TIME: . NEUROLOGY: HAVE YOU FALLEN IN THE PAST 12 MONTHS? NO . ANY NEW EXTREMITY NUMBNESS OR WEAKNESS? NO . CARDIOLOGY: DO YOU HAVE A PACEMAKER OR DEFIBRILLATOR? NO . RESPIRATORY: HAVE YOU BEEN SICK IN THE PAST WEEK? NO . FEVER NO . FLU LIKE SYMPTOMS? NO . COUGH NO . INTEGUMENTARY: DO YOU HAVE ANY RASHES OR OPEN SORES? NO . ALLERGIC/IMMUNO: ARE YOU ALLERGIC TO IV DYE? NO . ANY NEW ALLERGIES? NO . PSYCHIATRIC: DO YOU HAVE THOUGHTS OF HURTING YOURSELF OR SOMEONE ELSE? NO . ARE YOU ABUSED, NEGLECTED, OR IN AN UNSAFE ENVIRONMENT? NO . ENDOCRINOLOGY: ARE YOU DIABETIC? NO . OTHER: DO YOU NEED ANY PRESCRIPTIONS? NO . IF YES, PLEASE LIST: ____ . ANY NEW PROBLEMS WITH YOUR MEDICATIONS? NO . WHEN DID YOU LAST EAT? ____ . WHEN DID YOU LAST DRINK? ____ . WHAT DID YOU LAST DRINK? ____ . NAME OF PERSON DRIVING YOU HOME? ____ . DO YOU HAVE ANY OTHER QUESTIONS OR CONCERNS NO- STATES HER PAIN IS UNCHANGED FROM PREVIOUS. STATES SHE HAS CONSTANT PAIN AT A 10/10 MOST OF THE TIME . EXAMINATION GENERAL EXAMINATION: TELEMEDICINE VISIT. THE PATIENT APPEARED TO BE ALERT, ORIENTED TIMES 3 AND COOPERATIVE. ASSESSMENTS MYALGIA, OTHER SITE - M79.18 (PRIMARY) TREATMENT MYALGIA, OTHER SITE CLINICAL NOTES: WE DISCUSSED SEVERAL ISSUES WITH MS. JOHNS'S PAIN MANAGEMENT CASE. DUE TO THE COVID-19 PRECAUTIONS, WE TEMPORARILY POSTPONED THE PATIENTS'S INJECTION, AND WE AGREED TO TRY AGGRESSIVE MEDICATIONS FOR THE TIME BEING. I WILL HAVE THE PATIENT CONTINUE WITH THE TIZANIDINE. I WOULD ALSO LIKE THE PATIENT TO TRY USING VOLTAREN GEL TWICE A DAY OVER THE AFFECTED AREAS. I WILL FOLLOWUP WITH THE PATIENT VIA TELEMEDICINE IN THE NEXT FEW WEEKS. THE PATIENT KNOWS TO CALL THE OFFICE IF SHE HAS ANY QUESTIONS OR CONCERNS. THE PATIENT UNDERSTANDS AND IS IN AGREEMENT WITH THE TREATMENT PLAN. THE TOTAL TIME FOR THE TELEPHONE VISIT WAS 7 MINUTES. , I, DEA MENEZES , DOCUMENTED THE ABOVE INFORMATION ACTING A SCRIBE FOR DR. LOPEZ. I HAVE REVIEWED THE ABOVE DOCUMENT, WRITTEN BY NEELA LYNCH, AND I VERIFY THAT IT IS ACCURATE. . OTHERS START DICLOFENAC SODIUM GEL, 3 %, 1 APPLICATION, TRANSDERMAL, TWICE A DAY, 30 DAY(S), 60 NOTES: TELEPHONE VISIT FROM NURSE VERIFIED AND PHONE NMUMBER VERIFIED FOR PROVIDER TO CONDUCT ZOOM VISIT WITH PATIENT. 07/09/2019 0900 NLJVITAL SIGNS NOT COMPLETED DUE TO VIRTUAL VISIT WITH PATIENT. 07/06/2019 0900 NLJ. DISPOSITION & COMMUNICATION FOLLOW UP 2 WEEKS (REASON: F/UP DR Luo TELEMEDICINE 2 WEEKS) ELECTRONICALLY SIGNED BY LATIA LOPEZ MD, MD ON 07/20/2019 AT 04:29 PM EDT DISCLAIMER : THIS IS A VISIT SUMMARY EXTRACTED FROM THE [employer] CHART. IT IS NOT A COPY OF THE [employer] PROGRESS NOTE. MTDD
== END ==
LOC: M PAIN 08:45
PROVIDERS: ATTEND Anesthesiology
DX: M79.18 Myalgia, other site (principal); Z79.899 Other long term (current) drug therapy; Z88.0 Allergy status to penicillin

== ENCOUNTER → 2019-07-30 | Outpatient (CLI) | payer MEDICARE ==
[~2019-07-30] MED LIST changes: +BUPIVACAINE HCL 0.25% 10ML VIAL As Ordered ONE; +BUPIVACAINE HCL 0.25% 30ML VIAL As Ordered ONE
--- NOTE | 2019-08-05 00:57 | ECWPNPC ---
PATIENT NAME: BREEZY REDDY : 1960 GENDER: FEMALE VISIT DATE: 07/30/2019 DISCHARGE DATE: 07/30/19 1442 VISIT LOCKED DATE TIME: PHYSICIAN: LATIA LOPEZ MD RESOURCE: LATIA LOPEZ MD REASON FOR APPOINTMENT 1. TPI RIGHT NECK HISTORY OF PRESENT ILLNESS HISTORY OF PRESENT ILLNESS: PAIN THE PATIENT DESCRIBES THE PAIN... 59 YEAR OLD FEMALE PATIENT WITH A HISTORY OF CHRONIC LOW BACK PAIN. THE PATIENT DESCRIBES HER PAIN HAVE IT ALL THE TIME, SHARP, STABBING, THROBBING WITH A PAIN SCORE OF 6-10/10 DEPENDING ON PHYSICAL ACTIVITY. THE PATIENT STATES HER PAIN IS MAINLY IN HER RIGHT NECK WITH RADIATION DOWN INTO RIGHT SHOULDER. THE PATIENT SAYS HER PAIN IS AFFECTING HER ABILITY TO PERFORM HER DAILY ACTIVITIES SUCH CLEANING HER HOUSE, GROCERY SHOPPING, AND COOKING. THE PATIENT DENIES UNEXPLAINED WEIGHT LOSS, FEVER, CHILLS, NEW CHANGES IN HER URINARY OR BOWEL CONTROL. FALL RISK SCREENING: SCREENING :NO FALLS REPORTED IN THE LAST YEAR CURRENT MEDICATIONS TAKING ZOLPIDEM TARTRATE 10 MG TABLET 1 TABLET AT BEDTIME NEEDED ORALLY ONCE A DAY, NOTES: 07/29/2019 HS TAKING MULTIVITAMIN 1 CAP(S) ORALLY DAILY, NOTES: 07/30/2019 0700 TAKING IBUPROFEN 800 MG TABLET 1 TABLET WITH FOOD ORALLY THREE TIMES A DAY FOR PAIN, NOTES: 07/30/2019 1200 TAKING AMITRIPTYLINE HCL 50 MG TABLET 1 TABLET ORALLY EVERY 8 HRS NEEDED FOR PAIN MDD2, NOTES: 07/30/2019 HS TAKING TIZANIDINE HCL 4 MG TABLET 1-1 1/2 TAB ORALLY Q8H PRN, NOTES: 07/30/2019 0700 TAKING GABAPENTIN 300 MG CAPSULE 1 CAPSULE ORALLY BEFORE BEDTIME FOR PAIN, NOTES: 07/29/2019 HS TAKING LIDOCAINE HCL 2 % GEL 1 APPLICATION NEEDED EXTERNALLY NEEDED FOR PAIN (30 GMS TUBE) THREE TIMES A DAY, NOTES: PRN NOT-TAKING DICLOFENAC SODIUM 3 % GEL 1 APPLICATION TRANSDERMAL TWICE A DAY, NOTES: DOES NOT HAVE INSURANCE DENIED MEDICATION LIST REVIEWED AND RECONCILED WITH THE PATIENT PAST MEDICAL HISTORY MIGRAINES CERVICAL DISC DISORDER WITH RADICULOPATHY OF CERVICOTHORACIC REGION MYALGIA OSTEOARTHRTIS ALLERGIES PENICILLIN (FOR ALLERGIES USE ONLY): RASH - ALLERGY SURGICAL HISTORY SURGURIES TO BOTH KNEES (ACL AND SCOPES) SURGURY TO RIGHT SHOULDER -ROTATOR CUFF AND REPAIR 2003 SURGURY TO NECK 2003 FAMILY HISTORY FATHER: , DIAGNOSED WITH DIABETES, HYPERTENSION, UNSPECIFIED HEART DISEASE, UNSPECIFIED CEREBRAL ARTERY OCCLUSION WITH CEREBRAL INFARCTION MOTHER: , DIABETES, HYPERTENSION, UNSPECIFIED HEART DISEASE, UNSPECIFIED CEREBRAL ARTERY OCCLUSION WITH CEREBRAL INFARCTION SIBLINGS: ALIVE, SISTER-OSTEOARTHRITIS AND OSTEOPAROSIS 1DAUGHTER(S) - HEALTHY. SOCIAL HISTORY GENERAL: TOBACCO USE ARE YOU A: NONSMOKER. LATEX QUESTIONNAIRE LATEX ALLERGY : HAVE YOU EVER DEVELOPED ANY TYPE OF REACTION AFTER HANDLING LATEX PRODUCTS SUCH RUBBER GLOVES, CONDOMS, DIAPHRAGMS, BALLOONS, SOCKS, OR UNDERWEAR?NO LATEX ALLERGY : HAVE YOU EVER DEVELOPED ANY TYPE OF REACTION DURING OR AFTER DENTAL APPOINTMENT, VAGINAL/RECTAL EXAMINATION, SURGICAL PROCEDURE, OR ANY OTHER EXPOSURE?NO LATEX RISK : HAVE YOU EVER HAD ANY DIFFICULTY BREATHING OR HIVES AFTER EATING OR HANDLING ANY FRUITS, OR VEGETABLES; SUCH KIWI, BANANAS, STONE FRUITS, OR CHESTNUTSNO LATEX RISK : DO YOU HAVE A PREVIOUS PERSONAL HISTORY OF MORE THAN NINE SURGERIES, SPINA BIFIDA, OR REPEATED CATHERIZATIONS? NO LATEX RISK : ARE YOU FREQUENTLY EXPOSED TO LATEX PRODUCTS IN YOUR OCCUPATION?NO DATE ASKED : 07/29/2019 ALCOHOL SCREENING DID YOU HAVE A DRINK CONTAINING ALCOHOL IN THE PAST YEAR?NO POINTS0 INTERPRETATIONNEGATIVE RECREATIONAL DRUG USE DRUG USE?NO CAFFEINE CAFFEINE USE?YES HOW OFTEN AND HOW MUCH? ONCE A [employer] [id number] OTHER LANGUAGE LANGUAGES SPOKEN:MALAYSIAN EDUCATION LEVEL OF EDUCATION:NOT FINISHED COLLEGE LEARNING BARRIERS / SPECIAL NEEDS BARRIERS TO LEARNING?NO HEARING IMPAIRED?NO VISION IMPAIRED?YES COGNITIVELY IMPAIRED?NO :CORRECTIVE LENSES READING READINESS TO LEARN?YES LEARNING PREFERENCES?NO LEARNING CAPABILITIES PRESENT?YES EMOTIONAL BARRIERS?NO SPECIAL DEVICES?NO STREETCAR REPAIRER NEEDED?NO DOMESTIC VIOLENCE DO YOU FEEL SAFE IN YOUR ENVIRONMENT?YES DIET: REGULAR. EXERCISE: WALKS. MARITAL STATUS: . NEW PATIENT PAIN DIARY TODAY'S VISITNOTES 07/30/2019 PATIENT DESCRIBES PAIN :HAVE IT ALL THE TIME, SHARP, STABBING, THROBBING, OTHER WAKES UP FROM SLEEP FROM 0-10, WHAT LEVEL IS YOUR PAIN TODAY?10 PRECIPITATING FACTORS ANYTHING- CONSTANT ALLEVIATING FACTORS NOTHING MAKES IT BETTER PAIN CLINIC PFS, CLERGY, PUBLIC HEALTH REFERRALS PFS REFERRAL NEEDED?NO CLERGY REFERRAL NEEDED?NO PUBLIC HEALTH REFERRAL NEEDED?NO WAS THE PROVIDER NOTIFIED OF ANY PERTINENT INFO?YES N/A HAS THE PATIENT BEEN EDUCATED REGARDING HIS/HER PLAN OF CARE?YES HAS THE PATIENT BEEN EDUCATED REGARDING PAIN, THE RISK FOR PAIN, THE IMPORTANCE OF EFFECTIVE PAIN MANAGEMENT, AND THE PAIN ASSESSMENT PROCESS?YES ADVANCE DIRECTIVE ADVANCE DIRECTIVE DISCUSSED WITH PATIENT:YES HEALTH CARE PROXY DAUGHTER MAIDA REDDY [phone] ALSO HAS POA AND LIVING WILL PAT DONE 07/29/2019 DS. HOSPITALIZATION/MAJOR DIAGNOSTIC PROCEDURE SURGERY RELATED CHILD REVIEW OF SYSTEMS REVIEWED BY: PROVIDER: LATIA LOPEZ MD . CONSTITUTIONAL: ANY CHANGE IN YOUR MEDICAL CONDITION? NO . CHILLS NO . FEVER NO . INFECTION: DO YOU HAVE NEW INFECTIONS? NO . DO YOU HAVE HISTORY OF MRSA? NO . MUSCULOSKELETAL: ANY NEW PATTERNS OF PAIN OR NUMBNESS? NO . GASTROENTEROLOGY: ANY NEW CHANGE IN BOWEL CONTROL? NO . GENITOURINARY: ANY NEW CHANGE IN BLADDER CONTROL? NO . IS THERE A CHANCE YOU COULD BE ? NO . HEMATOLOGY/LYMPH: DO YOU TAKE ANY BLOOD THINNERS? (FOR EXAMPLE- COUMADIN, PLAVIX, AGGRENOX, PLATEL, PRADAXA, OR XARELTO) NO . WHEN WAS YOUR LAST DOSE? DATE: TIME: . NEUROLOGY: HAVE YOU FALLEN IN THE PAST 12 MONTHS? NO . ANY NEW EXTREMITY NUMBNESS OR WEAKNESS? NO . CARDIOLOGY: DO YOU HAVE A PACEMAKER OR DEFIBRILLATOR? NO . RESPIRATORY: HAVE YOU BEEN SICK IN THE PAST WEEK? NO . FEVER NO . FLU LIKE SYMPTOMS? NO . COUGH NO . INTEGUMENTARY: DO YOU HAVE ANY RASHES OR OPEN SORES? NO . ALLERGIC/IMMUNO: ARE YOU ALLERGIC TO IV DYE? NO . ANY NEW ALLERGIES? NO . PSYCHIATRIC: DO YOU HAVE THOUGHTS OF HURTING YOURSELF OR SOMEONE ELSE? NO . ARE YOU ABUSED, NEGLECTED, OR IN AN UNSAFE ENVIRONMENT? NO . ENDOCRINOLOGY: ARE YOU DIABETIC? NO . OTHER: DO YOU NEED ANY PRESCRIPTIONS? NO . IF YES, PLEASE LIST: ____ . ANY NEW PROBLEMS WITH YOUR MEDICATIONS? NO . WHEN DID YOU LAST EAT? 07/30/2019 0700 . WHEN DID YOU LAST DRINK? 07/30/2019 1100 . WHAT DID YOU LAST DRINK? WATER . NAME OF PERSON DRIVING YOU HOME? MAIDA-DAUGHTER . DO YOU HAVE ANY OTHER QUESTIONS OR CONCERNS NO . VITAL SIGNS WT 97.5 LBS, HT 66 IN, BMI 15.74 INDEX, BP 155/80 MM HG, HR 64 /MIN, RR 18 /MIN, TEMP 97.5 F, OXYGEN SAT % 96%, NA INITIALS AW 1302. EXAMINATION GENERAL EXAMINATION: PATIENT IS ALERT O X 3 AND COOPERATIVE. TENDERNESS WITH PRESENCE OF BANDS OF TISSUE AND TRIGGER POINTS WITH RESTRICTION OF MOVEMENT OF THE RIGHT NECK AND RIGHT SHOULDER AREAS. ASSESSMENTS MYALGIA, OTHER SITE - M79.18 (PRIMARY) TREATMENT MYALGIA, OTHER SITE CLINICAL NOTES: WE DISCUSSED SEVERAL ISSUES WITH MS. REDDY' PAIN MANAGEMENT CASE. DUE TO THE TRIGGER POINTS, BANDS OF TISSUE, AND RESTRICTION OF MOVEMENT, I WOULD LIKE TO MOVE FORWARD WITH A RIGHT NECK AND RIGHT SHOULDER TRIGGER POINT INJECTION AT THIS TIME. WE DISCUSSED THE BENEFITS, RISKS, AND ALTERNATIVES OF THE INJECTION AND THE PATIENT WOULD LIKE TO PROCEED. I AM LOOKING FOR LONG LASTING PAIN RELIEF FROM THIS INJECTION FOR THE PATIENT. I DISCUSSED WITH THE PATIENT ABOUT NOT USING KENALOG DUE TO THE RISK OF IMMUNOSUPPRESSION FROM STEROIDS, AND THE PATIENT AGREES WITH THE PLAN. THE PATIENT UNDERSTANDS, WOULD LIKE TO PROCEED WITH THE PROCEDURE, AND AGREES SHE WILL BE CAREFUL BY SELF ISOLATING FOR A WEEK OR MORE. INSTRUCTIONS WERE GIVEN, QUESTIONS WERE ANSWERED, PATIENT REPORTS UNDERSTANDING AND AGREES WITH THE PLAN. I, BRIAN GAFFENY, DOCUMENTED THE ABOVE INFORMATION ACTING A SCRIBE FOR DR. LOPEZ. I HAVE REVIEWED THE ABOVE DOCUMENT, WRITTEN BY BRIAN KEITA AND I VERIFY THAT IT IS ACCURATE. . PROCEDURES PN TRIGGER POINT INJECTION NO STEROIDS DATE OF PROCEDURE : PRE PROCEDURE DIAGNOSIS 1. MYALGIA 2. PAIN AT RIGHT NECK AREA AND RIGHT SHOULDER AREA. POST PROCEDURE DIAGNOSIS 1. MYALGIA 2. PAIN AT RIGHT NECK AREA AND RIGHT SHOULDER AREA. PROCEDURE TRIGGER POINT INJECTION AT RIGHT NECK AREA AND RIGHT SHOULDER AREA. SURGEON DR. LATIA LOPEZ VB DEVELOPER NONE ANESTHESIA LOCAL PRE PROCEDURE NOTE 59 YEAR-OLD PATIENT WITH HISTORY OF CHRONIC PAIN AT RIGHT NECK AREA AND RIGHT SHOULDER AREA. I EVALUATED THE PATIENT AND REVIEWED THE CHART. THERE IS EVIDENCE OF BANDS OF TISSUE WITH RESTRICTION OF MOVEMENT AND PRESENCE OF TRIGGER POINT AT THE AFFECTED AREA. I WENT OVER THE RISKS, ALTERNATIVES, AND BENEFITS ASSOCIATED WITH THIS PROCEDURE. THE PATIENT WOULD LIKE TO PROCEED AND GAVE CONSENT TO PERFORM THE PROCEDURE. THE PATIENT DENIES UNEXPLAINABLE WEIGHT LOSS, FEVER, CHILLS, OR NEW CHANGES IN URINARY OR BOWEL CONTROL. DESCRIPTION OF PROCEDURE THE PATIENT WAS BROUGHT TO THE PROCEDURE ROOM AND PLACED IN THE SITTING POSITION. THE AREA WAS CLEANED WITH ALCOHOL. THE PROCEDURE WAS DONE USING ASEPTIC STERILE TECHNIQUES. I CHECKED LATERALITY AND THE LEVEL WHERE THE PROCEDURE WAS GOING TO BE PERFORMED WITH THE PATIENT AND THE SUPPORTING STAFF AT THE MOMENT OF THE TIME OUT IN THE PROCEDURE ROOM. USING A 25-GAUGE NEEDLE, TRIGGER POINTS WERE INJECTED AT THE RIGHT NECK AND RIGHT SHOULDER AREA WITH A TOTAL OF 40 ML OF BUPIVACAINE 0.25%. AGREED WITH THE PATIENT THE PROCEDURE WAS DONE WITHOUT STEROIDS. THERE WAS NO EVIDENCE OF BLOOD, PARESTHESIA OR CEREBROSPINAL FLUID DURING THE PROCEDURE. THE PATIENT WAS SENT TO THE RECOVERY ROOM. THE PATIENT WAS MOVING THE EXTREMITIES AND DOING WELL. THERE WAS NO COMPLICATION DURING THE PROCEDURE. POST PROCEDURE NOTE THE PATIENT WILL BE SEEN IN A FOLLOW UP IN THE NEXT FEW WEEKS. I AM LOOKING FOR LONG LASTING PAIN RELIEF FOR THE PATIENT WITH THIS INJECTION. INSTRUCTIONS WERE GIVEN, QUESTIONS WERE ANSWERED, AND THE PATIENT EXPRESSED UNDERSTANDING AND AGREED WITH THE PLAN. I, BRIAN GAFFNEY, DOCUMENTED THE ABOVE INFORMATION ACTING A SCRIBE FOR DR. LOPEZ. I HAVE REVIEWED THE ABOVE DOCUMENT, WRITTEN BY BRIAN KEITA AND I VERIFY THAT IT IS ACCURATE. PROCEDURE CODES 00345 INJ TRIGGER POINT / MUSC DISPOSITION & COMMUNICATION FOLLOW UP 3 WEEKS ELECTRONICALLY SIGNED BY LATIA LOPEZ MD, MD ON 08/04/2019 AT 01:02 PM EDT DISCLAIMER : THIS IS A VISIT SUMMARY EXTRACTED FROM THE [employer] CHART. IT IS NOT A COPY OF THE [employer] PROGRESS NOTE. MTDCedric
== END ==
LOC: M PAIN 13:15
PROVIDERS: ATTEND Anesthesiology
DX: M79.18 Myalgia, other site (principal); Z79.899 Other long term (current) drug therapy; Z88.0 Allergy status to penicillin

== ENCOUNTER → 2019-08-15 | Outpatient (CLI) | payer MEDICARE ==
[~2019-08-15] MED LIST changes: -BUPIVACAINE HCL 0.25% 10ML VIAL As Ordered ONE; -BUPIVACAINE HCL 0.25% 30ML VIAL As Ordered ONE
--- NOTE | 2019-08-19 02:32 | ECWPNPC ---
PATIENT NAME: BREEZY REDDY : 1960 GENDER: FEMALE VISIT DATE: 08/15/2019 DISCHARGE DATE: 08/15/19 0841 VISIT LOCKED DATE TIME: PHYSICIAN: NICHOLAS SAINI RESOURCE: NICHOLAS SAINI REASON FOR APPOINTMENT 1. POST TPI PAT DONE HISTORY OF PRESENT ILLNESS HISTORY OF PRESENT ILLNESS: PATIENT IS AGREEABLE TO TELEMED VISIT TODAY. THIS IS A POST PROCEDURE FOLLOW-UP. HEAD TRIGGER POINT INJECTIONS TO THE RIGHT NECK WITHOUT STEROIDS ON 07/30/2019. REPORTING REDUCTION IN PAIN POST PROCEDURE. RATING PAIN LEVEL A 3/10 VAS. REPORTING IMPROVED MOBILITY. DISCUSSED MEDICATION AND TREATMENT OPTIONS. PAIN THE PATIENT DESCRIBES THE PAIN... FALL RISK SCREENING: SCREENING :NO FALLS REPORTED IN THE LAST YEAR CURRENT MEDICATIONS TAKING ZOLPIDEM TARTRATE 10 MG TABLET 1 TABLET AT BEDTIME NEEDED ORALLY ONCE A DAY TAKING MULTIVITAMIN 1 CAP(S) ORALLY DAILY TAKING IBUPROFEN 800 MG TABLET 1 TABLET WITH FOOD ORALLY THREE TIMES A DAY FOR PAIN TAKING AMITRIPTYLINE HCL 50 MG TABLET 1 TABLET ORALLY EVERY 8 HRS NEEDED FOR PAIN MDD2 TAKING TIZANIDINE HCL 4 MG TABLET 1-1 1/2 TAB ORALLY Q8H PRN TAKING GABAPENTIN 300 MG CAPSULE 1 CAPSULE ORALLY BEFORE BEDTIME FOR PAIN TAKING LIDOCAINE HCL 2 % GEL 1 APPLICATION NEEDED EXTERNALLY NEEDED FOR PAIN (30 GMS TUBE) THREE TIMES A DAY NOT-TAKING DICLOFENAC SODIUM 3 % GEL 1 APPLICATION TRANSDERMAL TWICE A DAY, NOTES: DOES NOT HAVE INSURANCE DENIED MEDICATION LIST REVIEWED AND RECONCILED WITH THE PATIENT PAST MEDICAL HISTORY MIGRAINES CERVICAL DISC DISORDER WITH RADICULOPATHY OF CERVICOTHORACIC REGION MYALGIA OSTEOARTHRTIS ALLERGIES PENICILLIN (FOR ALLERGIES USE ONLY): RASH - ALLERGY SURGICAL HISTORY SURGURIES TO BOTH KNEES (ACL AND SCOPES) SURGURY TO RIGHT SHOULDER -ROTATOR CUFF AND REPAIR 2002 SURGURY TO NECK 2003 FAMILY HISTORY FATHER: , DIAGNOSED WITH DIABETES, HYPERTENSION, UNSPECIFIED HEART DISEASE, UNSPECIFIED CEREBRAL ARTERY OCCLUSION WITH CEREBRAL INFARCTION MOTHER: , HYPERTENSION, UNSPECIFIED HEART DISEASE, UNSPECIFIED CEREBRAL ARTERY OCCLUSION WITH CEREBRAL INFARCTION, DIABETES SIBLINGS: ALIVE, SISTER-OSTEOARTHRITIS AND OSTEOPAROSIS 1DAUGHTER(S) - HEALTHY. SOCIAL HISTORY GENERAL: TOBACCO USE ARE YOU A: NONSMOKER. LATEX QUESTIONNAIRE LATEX ALLERGY : HAVE YOU EVER DEVELOPED ANY TYPE OF REACTION AFTER HANDLING LATEX PRODUCTS SUCH RUBBER GLOVES, CONDOMS, DIAPHRAGMS, BALLOONS, SOCKS, OR UNDERWEAR?NO LATEX ALLERGY : HAVE YOU EVER DEVELOPED ANY TYPE OF REACTION DURING OR AFTER DENTAL APPOINTMENT, VAGINAL/RECTAL EXAMINATION, SURGICAL PROCEDURE, OR ANY OTHER EXPOSURE?NO LATEX RISK : HAVE YOU EVER HAD ANY DIFFICULTY BREATHING OR HIVES AFTER EATING OR HANDLING ANY FRUITS, OR VEGETABLES; SUCH KIWI, BANANAS, STONE FRUITS, OR CHESTNUTSNO LATEX RISK : DO YOU HAVE A PREVIOUS PERSONAL HISTORY OF MORE THAN NINE SURGERIES, SPINA BIFIDA, OR REPEATED CATHERIZATIONS? NO LATEX RISK : ARE YOU FREQUENTLY EXPOSED TO LATEX PRODUCTS IN YOUR OCCUPATION?NO DATE ASKED : 08/15/2019 ALCOHOL SCREENING DID YOU HAVE A DRINK CONTAINING ALCOHOL IN THE PAST YEAR?NO POINTS0 INTERPRETATIONNEGATIVE RECREATIONAL DRUG USE DRUG USE?NO CAFFEINE CAFFEINE USE?YES HOW OFTEN AND HOW MUCH? ONCE A [employer] GNOSTICIST [id number] OTHER LANGUAGE LANGUAGES SPOKEN:PORTUGUESE EDUCATION LEVEL OF EDUCATION:NOT FINISHED COLLEGE LEARNING BARRIERS / SPECIAL NEEDS BARRIERS TO LEARNING?NO HEARING IMPAIRED?NO VISION IMPAIRED?YES COGNITIVELY IMPAIRED?NO :CORRECTIVE LENSES READING READINESS TO LEARN?YES LEARNING PREFERENCES?NO LEARNING CAPABILITIES PRESENT?YES EMOTIONAL BARRIERS?NO SPECIAL DEVICES?NO SEAM PRESSER NEEDED?NO DOMESTIC VIOLENCE DO YOU FEEL SAFE IN YOUR ENVIRONMENT?YES DIET: REGULAR. EXERCISE: WALKS. MARITAL STATUS: . NEW PATIENT PAIN DIARY TODAY'S VISITNOTES 08/15/19 PATIENT DESCRIBES PAIN :HAVE IT ALL THE TIME, SHARP, STABBING, THROBBING, OTHER WAKES UP FROM SLEEP FROM 0-10, WHAT LEVEL IS YOUR PAIN TODAY?3 PRECIPITATING FACTORS ANYTHING- CONSTANT ALLEVIATING FACTORS NOTHING MAKES IT BETTER PAIN CLINIC PFS, CLERGY, PUBLIC HEALTH REFERRALS PFS REFERRAL NEEDED?NO CLERGY REFERRAL NEEDED?NO PUBLIC HEALTH REFERRAL NEEDED?NO WAS THE PROVIDER NOTIFIED OF ANY PERTINENT INFO?YES N/A HAS THE PATIENT BEEN EDUCATED REGARDING HIS/HER PLAN OF CARE?YES HAS THE PATIENT BEEN EDUCATED REGARDING PAIN, THE RISK FOR PAIN, THE IMPORTANCE OF EFFECTIVE PAIN MANAGEMENT, AND THE PAIN ASSESSMENT PROCESS?YES ADVANCE DIRECTIVE ADVANCE DIRECTIVE DISCUSSED WITH PATIENT:YES HEALTH CARE PROXY DAUGHTER MAIDA REDDY [phone] ALSO HAS POA AND LIVING WILL HOSPITALIZATION/MAJOR DIAGNOSTIC PROCEDURE SURGERY RELATED CHILD REVIEW OF SYSTEMS REVIEWED BY: PROVIDER: NICHOLAS GARRETT . CONSTITUTIONAL: ANY CHANGE IN YOUR MEDICAL CONDITION? NO . CHILLS NO . FEVER NO . INFECTION: DO YOU HAVE NEW INFECTIONS? NO . DO YOU HAVE HISTORY OF MRSA? NO . MUSCULOSKELETAL: ANY NEW PATTERNS OF PAIN OR NUMBNESS? NO . GASTROENTEROLOGY: ANY NEW CHANGE IN BOWEL CONTROL? NO . GENITOURINARY: ANY NEW CHANGE IN BLADDER CONTROL? NO . IS THERE A CHANCE YOU COULD BE ? NO . HEMATOLOGY/LYMPH: DO YOU TAKE ANY BLOOD THINNERS? (FOR EXAMPLE- COUMADIN, PLAVIX, AGGRENOX, PLATEL, PRADAXA, OR XARELTO) NO . WHEN WAS YOUR LAST DOSE? DATE: TIME: . NEUROLOGY: HAVE YOU FALLEN IN THE PAST 12 MONTHS? NO . ANY NEW EXTREMITY NUMBNESS OR WEAKNESS? NO . CARDIOLOGY: DO YOU HAVE A PACEMAKER OR DEFIBRILLATOR? NO . RESPIRATORY: HAVE YOU BEEN SICK IN THE PAST WEEK? NO . FEVER NO . FLU LIKE SYMPTOMS? NO . COUGH NO . INTEGUMENTARY: DO YOU HAVE ANY RASHES OR OPEN SORES? NO . ALLERGIC/IMMUNO: ARE YOU ALLERGIC TO IV DYE? NO . ANY NEW ALLERGIES? NO . PSYCHIATRIC: DO YOU HAVE THOUGHTS OF HURTING YOURSELF OR SOMEONE ELSE? NO . ARE YOU ABUSED, NEGLECTED, OR IN AN UNSAFE ENVIRONMENT? NO . ENDOCRINOLOGY: ARE YOU DIABETIC? NO . OTHER: DO YOU NEED ANY PRESCRIPTIONS? NO . IF YES, PLEASE LIST: ____ . ANY NEW PROBLEMS WITH YOUR MEDICATIONS? NO . WHEN DID YOU LAST EAT? ____ . WHEN DID YOU LAST DRINK? ____ . WHAT DID YOU LAST DRINK? ____ . NAME OF PERSON DRIVING YOU HOME? ____ . DO YOU HAVE ANY OTHER QUESTIONS OR CONCERNS NO . EXAMINATION GENERAL EXAMINATION: GENERALNO ACUTE DISTRESS, WELL NOURISHED AND HYDRATED. PSYCHAPPROPRIATE MOOD AND AFFECT . FACE:UNREMARKABLE. ASSESSMENTS MYALGIA, OTHER SITE - M79.18 (PRIMARY) TREATMENT MYALGIA, OTHER SITE NOTES: CONTINUE HOME STRETCHING EXERCISES. TOTAL TIME SPENT DURING TELEMED VISIT WAS APPROXIMATELY 12 MINUTES. OTHERS NOTES: UNABLE TO OBTAIN VITAL SIGNS DUE TO VIRTUAL VISIT, PT GIVES CONSENT FOR ACCESS TO MEDICAL RECORDS FOR VIRTUAL VISIT. DS . DISPOSITION & COMMUNICATION FOLLOW UP 3 MONTHS (REASON: RIGHT NECK/SHOULDER) ELECTRONICALLY SIGNED BY TAMI CORTEZ ON 08/18/2019 AT 09:38 AM EDT DISCLAIMER : THIS IS A VISIT SUMMARY EXTRACTED FROM THE [employer] CHART. IT IS NOT A COPY OF THE [employer] PROGRESS NOTE. ANDREW
== END ==
LOC: M PAIN 10:30 → M TMPAIN 10:30
PROVIDERS: ATTEND Nurse Practitioner Family
DX: M79.18 Myalgia, other site (principal); Z79.899 Other long term (current) drug therapy; Z88.0 Allergy status to penicillin

== ENCOUNTER → 2019-10-15 | Outpatient (CLI) | payer MEDICARE ==
--- NOTE | 2019-10-16 04:39 | ECWPNPC ---
PATIENT NAME: BREEZY REDDY : 1960 GENDER: FEMALE VISIT DATE: 10/15/2019 DISCHARGE DATE: 10/15/19 0910 VISIT LOCKED DATE TIME: PHYSICIAN: NICHOLAS SAINI RESOURCE: NICHOLAS SAINI REASON FOR APPOINTMENT 1. RIGHT NECK/SHOULDER HISTORY OF PRESENT ILLNESS GENERAL: HERE FOR FOLLOW-UP OF CHRONIC NECK PAIN. PAIN HAS INCREASED OVER THE PAST MONTH. RESPONDS WELL TO TRIGGER POINT INJECTIONS. PAIN IS WORSE RIGHT GREATER THAN LEFT. PAIN IS AGGRAVATED BY RANGE OF JOINT MOTION OF THE NECK AND ARMS. PAIN IS AGGRAVATED BY LIFTING. FALL RISK SCREENING: SCREENING :NO FALLS REPORTED IN THE LAST YEAR PAIN SCREENING: PATIENT HAS A COMPLAINT OF ACUTE OR CHRONIC PAIN :YES LOCATION OF PAIN:NECK, RIGHT SHOULDER INTENSITY OF PAIN (SCALE OF 1 TO 10):9 WHAT DOES YOUR PAIN FEEL LIKE:ACHING, BURNING, CONTINOUS, SHARP, STABBING, TENDER, SORE NURSING NOTE: -. PAIN CENTER INTAKE QUESTIONS: DO YOU HAVE A HISTORY OF MRSA? :NO DO YOU TAKE A BLOOD THINNERS? :NO DO YOU HAVE ANY BLEEDING DISORDERS? :NO ANY NEW NUMBNESS OR WEAKNESS IN YOUR LEGS OR ARMS? :NO ANY PACEMAKER,DEFIBRILLATOR, OR DORSAL COLUMN STIMULATOR? :NO DO YOU HAVE ANY RASHES OR OPEN SORES? :NO ARE YOU ALLERGIC TO IV DYE? :NO ARE YOU DIABETIC? :NO ANY NEW PROBLEMS WITH YOUR MEDICATIONS? :NO HAVE YOU RECEIVED A VACCINE IN THE PAST 30 DAYS? :NO DO YOU PLAN TO RECEIVE A VACCINE IN THE NEXT 21 DAYS? :NO DO YOU NEED ANY PRESCRIPTION? :NO DO YOU TAKE ANY IMMUNOSUPPRESSIVE MEDICATIONS? :NO IS THERE A CHANCE YOU COULD BE ? :NO ARE YOU BREAST FEEDING? :NO CURRENT MEDICATIONS TAKING ZOLPIDEM TARTRATE 10 MG TABLET 1 TABLET AT BEDTIME NEEDED ORALLY ONCE A DAY TAKING MULTIVITAMIN 1 CAP(S) ORALLY DAILY TAKING IBUPROFEN 800 MG TABLET 1 TABLET WITH FOOD ORALLY THREE TIMES A DAY FOR PAIN TAKING AMITRIPTYLINE HCL 50 MG TABLET 1 TABLET ORALLY EVERY 8 HRS NEEDED FOR PAIN MDD2 TAKING TIZANIDINE HCL 4 MG TABLET 1-1 1/2 TAB ORALLY Q8H PRN TAKING GABAPENTIN 300 MG CAPSULE 1 CAPSULE ORALLY BEFORE BEDTIME FOR PAIN NOT-TAKING LIDOCAINE HCL 2 % GEL 1 APPLICATION NEEDED EXTERNALLY NEEDED FOR PAIN (30 GMS TUBE) THREE TIMES A DAY NOT-TAKING DICLOFENAC SODIUM 3 % GEL 1 APPLICATION TRANSDERMAL TWICE A DAY, NOTES: DOES NOT HAVE INSURANCE DENIED MEDICATION LIST REVIEWED AND RECONCILED WITH THE PATIENT PAST MEDICAL HISTORY MIGRAINES CERVICAL DISC DISORDER WITH RADICULOPATHY OF CERVICOTHORACIC REGION MYALGIA OSTEOARTHRTIS ALLERGIES PENICILLIN (FOR ALLERGIES USE ONLY): RASH - ALLERGY SURGICAL HISTORY SURGURIES TO BOTH KNEES (ACL AND SCOPES) SURGURY TO RIGHT SHOULDER -ROTATOR CUFF AND REPAIR 2002 SURGURY TO NECK 2003 FAMILY HISTORY FATHER: , DIAGNOSED WITH UNSPECIFIED HEART DISEASE, DIABETES, UNSPECIFIED CEREBRAL ARTERY OCCLUSION WITH CEREBRAL INFARCTION, HYPERTENSION MOTHER: , HYPERTENSION, UNSPECIFIED HEART DISEASE, DIABETES, UNSPECIFIED CEREBRAL ARTERY OCCLUSION WITH CEREBRAL INFARCTION SIBLINGS: ALIVE, SISTER-OSTEOARTHRITIS AND OSTEOPAROSIS 1DAUGHTER(S) - HEALTHY. SOCIAL HISTORY GENERAL: TOBACCO USE ARE YOU A: NONSMOKER. LATEX QUESTIONNAIRE LATEX ALLERGY : HAVE YOU EVER DEVELOPED ANY TYPE OF REACTION AFTER HANDLING LATEX PRODUCTS SUCH RUBBER GLOVES, CONDOMS, DIAPHRAGMS, BALLOONS, SOCKS, OR UNDERWEAR?NO LATEX ALLERGY : HAVE YOU EVER DEVELOPED ANY TYPE OF REACTION DURING OR AFTER DENTAL APPOINTMENT, VAGINAL/RECTAL EXAMINATION, SURGICAL PROCEDURE, OR ANY OTHER EXPOSURE?NO LATEX RISK : HAVE YOU EVER HAD ANY DIFFICULTY BREATHING OR HIVES AFTER EATING OR HANDLING ANY FRUITS, OR VEGETABLES; SUCH KIWI, BANANAS, STONE FRUITS, OR CHESTNUTSNO LATEX RISK : DO YOU HAVE A PREVIOUS PERSONAL HISTORY OF MORE THAN NINE SURGERIES, SPINA BIFIDA, OR REPEATED CATHERIZATIONS? NO LATEX RISK : ARE YOU FREQUENTLY EXPOSED TO LATEX PRODUCTS IN YOUR OCCUPATION?NO DATE ASKED : 10/15/2019 ALCOHOL SCREENING DID YOU HAVE A DRINK CONTAINING ALCOHOL IN THE PAST YEAR?NO POINTS0 INTERPRETATIONNEGATIVE RECREATIONAL DRUG USE DRUG USE?NO CAFFEINE CAFFEINE USE?YES HOW OFTEN AND HOW MUCH? ONCE A [employer] VOODOO [id number] OTHER LANGUAGE LANGUAGES SPOKEN:KHMER EDUCATION LEVEL OF EDUCATION:NOT FINISHED COLLEGE LEARNING BARRIERS / SPECIAL NEEDS BARRIERS TO LEARNING?NO HEARING IMPAIRED?NO VISION IMPAIRED?YES COGNITIVELY IMPAIRED?NO :CORRECTIVE LENSES READING READINESS TO LEARN?YES LEARNING PREFERENCES?NO LEARNING CAPABILITIES PRESENT?YES EMOTIONAL BARRIERS?NO SPECIAL DEVICES?NO PHYSICIAN GYNECOLOGIST NEEDED?NO DOMESTIC VIOLENCE DO YOU FEEL SAFE IN YOUR ENVIRONMENT?YES DIET: REGULAR. EXERCISE: WALKS. MARITAL STATUS: . PAIN CLINIC PFS, CLERGY, PUBLIC HEALTH REFERRALS PFS REFERRAL NEEDED?NO CLERGY REFERRAL NEEDED?NO PUBLIC HEALTH REFERRAL NEEDED?NO WAS THE PROVIDER NOTIFIED OF ANY PERTINENT INFO?YES N/A HAS THE PATIENT BEEN EDUCATED REGARDING HIS/HER PLAN OF CARE?YES HAS THE PATIENT BEEN EDUCATED REGARDING PAIN, THE RISK FOR PAIN, THE IMPORTANCE OF EFFECTIVE PAIN MANAGEMENT, AND THE PAIN ASSESSMENT PROCESS?YES ADVANCE DIRECTIVE ADVANCE DIRECTIVE DISCUSSED WITH PATIENT:YES HEALTH CARE PROXY DAUGHTER MAIDA REDDY [phone] ALSO HAS POA AND LIVING WILL HOSPITALIZATION/MAJOR DIAGNOSTIC PROCEDURE SURGERY RELATED CHILD REVIEW OF SYSTEMS CONSTITUTIONAL: ANY RECENT FEVER NO . CHILLS NO . WEIGHT CHANGE OF UNKNOWN REASONS NO . GASTROENTEROLOGY: NEW UNEXPLAINABLE CHANGES IN BOWEL CONTROL NO . CONSTIPATION NO . GENITOURINARY: ANY NEW CHANGE IN BLADDER CONTROL? NO . NEUROLOGY: NEW ONSET DIZZINESS OR NEUROLOGICAL CHANGES NOT MENTIONED NO . NEW NUMBNESS OR PAIN PATTERNS NOT MENTIONED AND PERTINENT TO TODAY'S VISIT NO . CARDIOLOGY: NEW CHEST PRESSURE NO . NEW CHEST PAIN NO . RESPIRATORY: UNEXPLAINABLE COUGH NO . NEW SHORTNESS OF BREATH NO . VITAL SIGNS WT 199.8 LBS, HT 66 IN, BMI 32.25 INDEX, BP 174/87 MM HG, HR 64 /MIN, RR 18 /MIN, TEMP 97.4 F, OXYGEN SAT % 98%, SAFE IN ENV? (Y/N) Y, NA INITIALS SC 08:52, REVIEWED BY: IRIS. EXAMINATION GENERAL EXAMINATION: GENERALUNCOMFORTABLE . NECK:LIMITED EXTENSION, LIMITED FLEXION . LUNGS:LUNG LOVING ARE CLEAR TO AUSCULTATION BILATERALLY. GOOD MOVEMENT OF AIR . HEART:S1, S2 IN A REGULAR RATE AND RHYTHM. NO SIGNIFICANT MURMURS, RUBS OR GALLOPS NOTED . CERVICAL:SPECIFIC TRIGGER POINTS OVER R NECK/RHOMBOID REGION, RIGHT GREATER THAN LEFT..PAIN IS AGGREVATED IN THIS REGION WITH ROJM NECK AND RIGHT ARM. ASSESSMENTS MYALGIA, OTHER SITE - M79.18 (PRIMARY) TREATMENT MYALGIA, OTHER SITE NOTES: TRIGGER POINT INJECTION WITHOUT STEROIDS, BILATERAL NECK/SHOULDER. PROCEDURE CODES FA211 ESTABILISHED PATIENT [facility] CHARGE DISPOSITION & COMMUNICATION FOLLOW UP POST PROCEDURE (REASON: TRIGGER POINT INJECTION WITHOUT STEROIDS, BILATERAL NECK/SHOULDER) ELECTRONICALLY SIGNED BY TAMI CORTEZ ON 10/15/2019 AT 09:12 AM EDT DISCLAIMER : THIS IS A VISIT SUMMARY EXTRACTED FROM THE [employer] CHART. IT IS NOT A COPY OF THE [employer] PROGRESS NOTE. MTDD
== END ==
LOC: M PAIN 08:45
PROVIDERS: ATTEND Nurse Practitioner Family
DX: M79.18 Myalgia, other site (principal)

== ENCOUNTER → 2019-11-10 | Outpatient (POV) | payer MEDICARE | LOC: M PAIN 09:00 | PROVIDERS: ATTEND Nurse Practitioner Family | DX: M79.18 Myalgia, other site (principal) ==

== ENCOUNTER → 2020-02-10 | Outpatient (CLI) | payer MEDICARE ==
--- NOTE | 2020-02-12 04:07 | ECWPNPC ---
PATIENT NAME: BREEZY REDDY : 1960 GENDER: FEMALE VISIT DATE: 02/10/2020 DISCHARGE DATE: 02/10/20 1526 VISIT LOCKED DATE TIME: PHYSICIAN: NICHOLAS SAINI PHYSICIAN PAGER NO: ACTIVE RESOURCE: NICHOLAS SAINI REASON FOR APPOINTMENT 1. NECK/ SHOULDER HISTORY OF PRESENT ILLNESS GENERAL: - HERE FOR FOLLOW-UP OF CHRONIC NECK PAIN. PAIN HAS INCREASED OVER THE PAST MONTH. RESPONDS WELL TO TRIGGER POINT INJECTIONS. PAIN IS WORSE RIGHT GREATER THAN LEFT. PAIN IS AGGRAVATED BY RANGE OF JOINT MOTION OF THE NECK AND ARMS. PAIN IS AGGRAVATED BY LIFTING. FALL RISK SCREENING: SCREENING :NO FALLS REPORTED IN THE LAST YEAR PAIN SCREENING: PATIENT HAS A COMPLAINT OF ACUTE OR CHRONIC PAIN :YES LOCATION OF PAIN:NECK, RIGHT SHOULDER INTENSITY OF PAIN (SCALE OF 1 TO 10):8 WHAT DOES YOUR PAIN FEEL LIKE:ACHING, BURNING, SHARP, STABBING, THROBBING, SHOOTING DURATION:CONTINOUS, CONSTANT PAIN IS INCREASED BY:ACTIVITIES PAIN IS DECREASED BY:USE OF PAIN MEDICATIONS TREATMENT/MEDICATIONS USED TO MANAGE PAIN:OTC PAIN RELIEVERS LEVEL OF RELIEF FROM PAIN TREATMENTS IN THE PAST:25% PAIN HAS INTERFERED WITH THE FOLLOWING:BATHING/DRESSING, WALKING ABILITY, HOUSEWORK, SLEEP, TRANSPORTATION, TOILETING NURSING NOTE: -. PAIN CENTER INTAKE QUESTIONS: DO YOU HAVE A HISTORY OF MRSA? :NO DO YOU TAKE A BLOOD THINNERS? :NO DO YOU HAVE ANY BLEEDING DISORDERS? :NO ANY NEW NUMBNESS OR WEAKNESS IN YOUR LEGS OR ARMS? :NO ANY PACEMAKER,DEFIBRILLATOR, OR DORSAL COLUMN STIMULATOR? :NO DO YOU HAVE ANY RASHES OR OPEN SORES? :NO ARE YOU ALLERGIC TO IV DYE? :NO ARE YOU DIABETIC? :NO ANY NEW PROBLEMS WITH YOUR MEDICATIONS? :NO HAVE YOU RECEIVED A VACCINE IN THE PAST 30 DAYS? :NO DO YOU PLAN TO RECEIVE A VACCINE IN THE NEXT 21 DAYS? :NO DO YOU NEED ANY PRESCRIPTION? :NO DO YOU TAKE ANY IMMUNOSUPPRESSIVE MEDICATIONS? :NO IS THERE A CHANCE YOU COULD BE ? :NO ARE YOU BREAST FEEDING? :NO CURRENT MEDICATIONS TAKING ZOLPIDEM TARTRATE 10 MG TABLET 1 TABLET AT BEDTIME NEEDED ORALLY ONCE A DAY TAKING MULTIVITAMIN 1 CAP(S) ORALLY DAILY TAKING IBUPROFEN 800 MG TABLET 1 TABLET WITH FOOD ORALLY THREE TIMES A DAY FOR PAIN TAKING AMITRIPTYLINE HCL 50 MG TABLET 1 TABLET ORALLY EVERY 8 HRS NEEDED FOR PAIN MDD2 TAKING TIZANIDINE HCL 4 MG TABLET 1-1 1/2 TAB ORALLY Q8H PRN TAKING GABAPENTIN 300 MG CAPSULE 1 CAPSULE ORALLY BEFORE BEDTIME FOR PAIN NOT-TAKING LIDOCAINE HCL 2 % GEL 1 APPLICATION NEEDED EXTERNALLY NEEDED FOR PAIN (30 GMS TUBE) THREE TIMES A DAY NOT-TAKING DICLOFENAC SODIUM 3 % GEL 1 APPLICATION TRANSDERMAL TWICE A DAY, NOTES: DOES NOT HAVE INSURANCE DENIED MEDICATION LIST REVIEWED AND RECONCILED WITH THE PATIENT PAST MEDICAL HISTORY MIGRAINES CERVICAL DISC DISORDER WITH RADICULOPATHY OF CERVICOTHORACIC REGION MYALGIA OSTEOARTHRTIS ALLERGIES PENICILLIN (FOR ALLERGIES USE ONLY): RASH - ALLERGY SURGICAL HISTORY SURGURIES TO BOTH KNEES (ACL AND SCOPES) SURGURY TO RIGHT SHOULDER -ROTATOR CUFF AND REPAIR 2002 SURGURY TO NECK 2003 FAMILY HISTORY FATHER: , DIAGNOSED WITH HYPERTENSION, DIABETES, UNSPECIFIED CEREBRAL ARTERY OCCLUSION WITH CEREBRAL INFARCTION, UNSPECIFIED HEART DISEASE MOTHER: , HYPERTENSION, UNSPECIFIED HEART DISEASE, DIABETES, UNSPECIFIED CEREBRAL ARTERY OCCLUSION WITH CEREBRAL INFARCTION SIBLINGS: ALIVE, SISTER-OSTEOARTHRITIS AND OSTEOPAROSIS 1DAUGHTER(S) - HEALTHY. SOCIAL HISTORY GENERAL: TOBACCO USE ARE YOU A: NONSMOKER. LATEX QUESTIONNAIRE LATEX ALLERGY : HAVE YOU EVER DEVELOPED ANY TYPE OF REACTION AFTER HANDLING LATEX PRODUCTS SUCH RUBBER GLOVES, CONDOMS, DIAPHRAGMS, BALLOONS, SOCKS, OR UNDERWEAR?NO LATEX ALLERGY : HAVE YOU EVER DEVELOPED ANY TYPE OF REACTION DURING OR AFTER DENTAL APPOINTMENT, VAGINAL/RECTAL EXAMINATION, SURGICAL PROCEDURE, OR ANY OTHER EXPOSURE?NO LATEX RISK : HAVE YOU EVER HAD ANY DIFFICULTY BREATHING OR HIVES AFTER EATING OR HANDLING ANY FRUITS, OR VEGETABLES; SUCH KIWI, BANANAS, STONE FRUITS, OR CHESTNUTSNO LATEX RISK : DO YOU HAVE A PREVIOUS PERSONAL HISTORY OF MORE THAN NINE SURGERIES, SPINA BIFIDA, OR REPEATED CATHERIZATIONS? NO LATEX RISK : ARE YOU FREQUENTLY EXPOSED TO LATEX PRODUCTS IN YOUR OCCUPATION?NO DATE ASKED : 10/23/2019 ALCOHOL SCREENING DID YOU HAVE A DRINK CONTAINING ALCOHOL IN THE PAST YEAR?NO POINTS0 INTERPRETATIONNEGATIVE RECREATIONAL DRUG USE DRUG USE?NO CAFFEINE CAFFEINE USE?YES HOW OFTEN AND HOW MUCH? ONCE A [employer] [id number] OTHER LANGUAGE LANGUAGES SPOKEN:LITHUANIAN EDUCATION LEVEL OF EDUCATION:NOT FINISHED COLLEGE LEARNING BARRIERS / SPECIAL NEEDS BARRIERS TO LEARNING?NO HEARING IMPAIRED?NO VISION IMPAIRED?YES COGNITIVELY IMPAIRED?NO :CORRECTIVE LENSES READING READINESS TO LEARN?YES LEARNING PREFERENCES?NO LEARNING CAPABILITIES PRESENT?YES EMOTIONAL BARRIERS?NO SPECIAL DEVICES?NO SENIOR SOFTWARE QUALITY ENGINEER NEEDED?NO DOMESTIC VIOLENCE DO YOU FEEL SAFE IN YOUR ENVIRONMENT?YES DIET: REGULAR. EXERCISE: WALKS. MARITAL STATUS: . PAIN CLINIC PFS, CLERGY, PUBLIC HEALTH REFERRALS PFS REFERRAL NEEDED?NO CLERGY REFERRAL NEEDED?NO PUBLIC HEALTH REFERRAL NEEDED?NO WAS THE PROVIDER NOTIFIED OF ANY PERTINENT INFO?YES N/A HAS THE PATIENT BEEN EDUCATED REGARDING HIS/HER PLAN OF CARE?YES HAS THE PATIENT BEEN EDUCATED REGARDING PAIN, THE RISK FOR PAIN, THE IMPORTANCE OF EFFECTIVE PAIN MANAGEMENT, AND THE PAIN ASSESSMENT PROCESS?YES ADVANCE DIRECTIVE ADVANCE DIRECTIVE DISCUSSED WITH PATIENT:YES HEALTH CARE PROXY DAUGHTER MAIDA REDDY [phone] ALSO HAS POA AND LIVING WILL HOSPITALIZATION/MAJOR DIAGNOSTIC PROCEDURE SURGERY RELATED CHILD REVIEW OF SYSTEMS CONSTITUTIONAL: ANY RECENT FEVER NO . CHILLS NO . WEIGHT CHANGE OF UNKNOWN REASONS NO . GASTROENTEROLOGY: NEW UNEXPLAINABLE CHANGES IN BOWEL CONTROL NO . CONSTIPATION NO . GENITOURINARY: ANY NEW CHANGE IN BLADDER CONTROL? NO . NEUROLOGY: NEW ONSET DIZZINESS OR NEUROLOGICAL CHANGES NOT MENTIONED NO . NEW NUMBNESS OR PAIN PATTERNS NOT MENTIONED AND PERTINENT TO TODAY'S VISIT NO . CARDIOLOGY: NEW CHEST PRESSURE NO . NEW CHEST PAIN NO . RESPIRATORY: UNEXPLAINABLE COUGH NO . NEW SHORTNESS OF BREATH NO . VITAL SIGNS WT 205 LBS, HT 66 IN, BMI 33.08 INDEX, BP 141/77 MM HG, HR 65 /MIN, RR 20 /MIN, TEMP 96.4 F, OXYGEN SAT % 99%, SAFE IN ENV? (Y/N) Y, NA INITIALS HI 14:59, REVIEWED BY: EREN PEREIRA [facility] ADMINISTRATOR. EXAMINATION GENERAL EXAMINATION: GENERAL UNCOMFORTABLE . NECK: LIMITED EXTENSION, LIMITED FLEXION . LUNGS: LUNG LOVING ARE CLEAR TO AUSCULTATION BILATERALLY. GOOD MOVEMENT OF AIR . HEART: S1, S2 IN A REGULAR RATE AND RHYTHM. NO SIGNIFICANT MURMURS, RUBS OR GALLOPS NOTED . MUSCULOSKELETAL:TRIGGER POINTS ELICITED OVER RIGHT SHOULDER . CERVICAL:SPECIFIC TRIGGER POINTS OVER R NECK/RHOMBOID REGION, RIGHT GREATER THAN LEFT..PAIN IS AGGREVATED IN THIS REGION WITH ROJM NECK AND RIGHT ARM. ASSESSMENTS MYALGIA, OTHER SITE - M79.18 (PRIMARY) TREATMENT MYALGIA, OTHER SITE NOTES: TRIGGER POINT INJECTION BILATERAL NECK/RIGHT SHOULDER. 02/10/20 1520 PATIENT GIVEN HANDOUT FOR TRIGGER POINT INJECTIONS, AND PRE PROCEDURE INSTRUCTIONS FOR TRIGGER POINT INJECTIONS, PATIENT VERBALIZES UNDERSTANDING. PATIENT REPORTS NOT HAVING COVID SCREENING BECAUSE SHE DOESN'T USE ANY STEROIDS WITH HER INJECTIONS. PROCEDURE CODES FA211 ESTABILISHED PATIENT [facility] CHARGE DISPOSITION & COMMUNICATION FOLLOW UP POST PROCEDURE (REASON: TRIGGER POINT INJECTION BILATERAL NECK/RIGHT SHOULDER) ELECTRONICALLY SIGNED BY TAMI CORTEZ ON 02/11/2020 AT 01:05 PM EST DISCLAIMER : THIS IS A VISIT SUMMARY EXTRACTED FROM THE [employer] CHART. IT IS NOT A COPY OF THE [employer] PROGRESS NOTE. ANDREW
== END ==
LOC: M PAIN 14:45
PROVIDERS: ATTEND Nurse Practitioner Family
DX: M79.18 Myalgia, other site (principal); G43.909 Migraine, unspecified, not intractable, without status migrainosus; M19.90 Unspecified osteoarthritis, unspecified site; M50.10 Cervical disc disorder with radiculopathy, unspecified cervical region; Z79.899 Other long term (current) drug therapy; Z88.0 Allergy status to penicillin

== ENCOUNTER → 2020-03-09 | Outpatient (CLI) | payer MEDICARE ==
[~2020-03-09] MED LIST changes: +BUPIVACAINE HCL 0.25% 10ML VIAL As Ordered ONE; +BUPIVACAINE HCL 0.25% 30ML VIAL As Ordered ONE; +TRIAMCINOLONE ACETONIDE SUSP 40 MG/ML VIAL (J3301) As Ordered ONE
--- NOTE | 2020-03-11 02:39 | ECWPNPC ---
PATIENT NAME: BREEZY REDDY : 1960 GENDER: FEMALE VISIT DATE: 03/09/2020 DISCHARGE DATE: 03/09/20 160 VISIT LOCKED DATE TIME: PHYSICIAN: LATIA LOPEZ MD PHYSICIAN PAGER NO: ACTIVE RESOURCE: LATIA LOPEZ MD REASON FOR APPOINTMENT 1. TRIGGER POINT INJECTION BILATERAL NECK AND RIGHT SHOULDER HISTORY OF PRESENT ILLNESS GENERAL: -. FALL RISK SCREENING: SCREENING :NO FALLS REPORTED IN THE LAST YEAR PAIN SCREENING: PATIENT HAS A COMPLAINT OF ACUTE OR CHRONIC PAIN :YES LOCATION OF PAIN: NECK, RIGHT SHOULDER, RIGHT HAND NUMB INTENSITY OF PAIN (SCALE OF 1 TO 10): 10 WHAT DOES YOUR PAIN FEEL LIKE:SHARP, STABBING, CONTINOUS DURATION:CONSTANT, AWAKENS FROM SLEEP PAIN IS INCREASED BY:ACTIVITIES PAIN IS DECREASED BY:OTHERS HEAT/COLD THERAPY; ANALGESIC CREAMS NURSING NOTE: -. PAIN CENTER INTAKE QUESTIONS: DO YOU HAVE A HISTORY OF MRSA? :NO DO YOU TAKE A BLOOD THINNERS? :NO DO YOU HAVE ANY BLEEDING DISORDERS? :NO ANY NEW NUMBNESS OR WEAKNESS IN YOUR LEGS OR ARMS? :NO ANY PACEMAKER,DEFIBRILLATOR, OR DORSAL COLUMN STIMULATOR? :NO DO YOU HAVE ANY RASHES OR OPEN SORES? :NO ARE YOU ALLERGIC TO IV DYE? :NO ARE YOU DIABETIC? :NO ANY NEW PROBLEMS WITH YOUR MEDICATIONS? :NO HAVE YOU RECEIVED A VACCINE IN THE PAST 30 DAYS? :NO DO YOU PLAN TO RECEIVE A VACCINE IN THE NEXT 21 DAYS? :NO DO YOU TAKE ANY IMMUNOSUPPRESSIVE MEDICATIONS? :NO ANY HISTORY OF SEIZURES? :NO ANY HISTORY OF CARDIAC ISSUES OR EVENTS? :NO DO YOU HAVE SLEEP APNEA? :NO ANY RECENT HEAD INJURY? :NO DO YOU HAVE ANY NEW INFECTIONS? :NO IS THERE A CHANCE YOU COULD BE ? :NO ARE YOU BREAST FEEDING? :NO WHEN DID YOU LAST EAT? : 03/09/20729 WHEN DID YOU LAST DRINK? : 03/09/20 1000 WHAT DID YOU LAST DRINK? : WATER NAME OF PERSON DRIVING YOU HOME? : MAIDA GRIJALVA (DAUGHTER) DO YOU HAVE ANY OTHER QUESTIONS OR CONCERNS? : NO CURRENT MEDICATIONS TAKING ZOLPIDEM TARTRATE 10 MG TABLET 1 TABLET AT BEDTIME NEEDED ORALLY ONCE A DAY, NOTES: 03/08/202129 TAKING MULTIVITAMIN 1 CAP(S) ORALLY DAILY, NOTES: 03/09/20729 TAKING IBUPROFEN 800 MG TABLET 1 TABLET WITH FOOD ORALLY THREE TIMES A DAY FOR PAIN, NOTES: 03/09/20 1000 TAKING AMITRIPTYLINE HCL 50 MG TABLET 1 TABLET ORALLY EVERY 8 HRS NEEDED FOR PAIN MDD2, NOTES: 03/08/20 2130 TAKING TIZANIDINE HCL 4 MG TABLET 1-1 1/2 TAB ORALLY Q8H PRN, NOTES: 03/09/20729 TAKING GABAPENTIN 300 MG CAPSULE 1 CAPSULE ORALLY BEFORE BEDTIME FOR PAIN, NOTES: 03/09/20729 TAKING BIOFREEZE ROLL-ON , NOTES: NEEDED NOT-TAKING LIDOCAINE HCL 2 % GEL 1 APPLICATION NEEDED EXTERNALLY NEEDED FOR PAIN (30 GMS TUBE) THREE TIMES A DAY NOT-TAKING DICLOFENAC SODIUM 3 % GEL 1 APPLICATION TRANSDERMAL TWICE A DAY, NOTES: DOES NOT HAVE INSURANCE DENIED MEDICATION LIST REVIEWED AND RECONCILED WITH THE PATIENT PAST MEDICAL HISTORY MIGRAINES CERVICAL DISC DISORDER WITH RADICULOPATHY OF CERVICOTHORACIC REGION MYALGIA OSTEOARTHRTIS ALLERGIES PENICILLIN (FOR ALLERGIES USE ONLY): RASH - ALLERGY SURGICAL HISTORY SURGURIES TO BOTH KNEES (ACL AND SCOPES) SURGURY TO RIGHT SHOULDER -ROTATOR CUFF AND REPAIR 2002 SURGURY TO NECK 2003 FAMILY HISTORY FATHER: , DIAGNOSED WITH HYPERTENSION, UNSPECIFIED HEART DISEASE, DIABETES, UNSPECIFIED CEREBRAL ARTERY OCCLUSION WITH CEREBRAL INFARCTION MOTHER: , HYPERTENSION, UNSPECIFIED HEART DISEASE, DIABETES, UNSPECIFIED CEREBRAL ARTERY OCCLUSION WITH CEREBRAL INFARCTION SIBLINGS: ALIVE, SISTER-OSTEOARTHRITIS AND OSTEOPAROSIS 1DAUGHTER(S) - HEALTHY. SOCIAL HISTORY GENERAL: TOBACCO USE ARE YOU A: NONSMOKER. LATEX QUESTIONNAIRE LATEX ALLERGY : HAVE YOU EVER DEVELOPED ANY TYPE OF REACTION AFTER HANDLING LATEX PRODUCTS SUCH RUBBER GLOVES, CONDOMS, DIAPHRAGMS, BALLOONS, SOCKS, OR UNDERWEAR?NO LATEX ALLERGY : HAVE YOU EVER DEVELOPED ANY TYPE OF REACTION DURING OR AFTER DENTAL APPOINTMENT, VAGINAL/RECTAL EXAMINATION, SURGICAL PROCEDURE, OR ANY OTHER EXPOSURE?NO LATEX RISK : HAVE YOU EVER HAD ANY DIFFICULTY BREATHING OR HIVES AFTER EATING OR HANDLING ANY FRUITS, OR VEGETABLES; SUCH KIWI, BANANAS, STONE FRUITS, OR CHESTNUTSNO LATEX RISK : DO YOU HAVE A PREVIOUS PERSONAL HISTORY OF MORE THAN NINE SURGERIES, SPINA BIFIDA, OR REPEATED CATHERIZATIONS? NO LATEX RISK : ARE YOU FREQUENTLY EXPOSED TO LATEX PRODUCTS IN YOUR OCCUPATION?NO DATE ASKED : 03/09/2020 ALCOHOL SCREENING DID YOU HAVE A DRINK CONTAINING ALCOHOL IN THE PAST YEAR?NO POINTS0 INTERPRETATIONNEGATIVE RECREATIONAL DRUG USE DRUG USE?NO CAFFEINE CAFFEINE USE?YES HOW OFTEN AND HOW MUCH? ONCE A DAYMOUNTAIN DEW [employer]OD[employer] [id number] OTHER LANGUAGE LANGUAGES SPOKEN:INDONESIAN EDUCATION LEVEL OF EDUCATION:NOT FINISHED COLLEGE LEARNING BARRIERS / SPECIAL NEEDS BARRIERS TO LEARNING?NO HEARING IMPAIRED?NO VISION IMPAIRED?YES COGNITIVELY IMPAIRED?NO :CORRECTIVE LENSES READING READINESS TO LEARN?YES LEARNING PREFERENCES?NO LEARNING CAPABILITIES PRESENT?YES EMOTIONAL BARRIERS?NO SPECIAL DEVICES?NO FITTING ROOM CHECKER NEEDED?NO DOMESTIC VIOLENCE DO YOU FEEL SAFE IN YOUR ENVIRONMENT?YES DIET: REGULAR. EXERCISE: WALKS. MARITAL STATUS: . PAIN CLINIC PFS, CLERGY, PUBLIC HEALTH REFERRALS PFS REFERRAL NEEDED?NO CLERGY REFERRAL NEEDED?NO PUBLIC HEALTH REFERRAL NEEDED?NO WAS THE PROVIDER NOTIFIED OF ANY PERTINENT INFO?YES N/A HAS THE PATIENT BEEN EDUCATED REGARDING HIS/HER PLAN OF CARE?YES HAS THE PATIENT BEEN EDUCATED REGARDING PAIN, THE RISK FOR PAIN, THE IMPORTANCE OF EFFECTIVE PAIN MANAGEMENT, AND THE PAIN ASSESSMENT PROCESS?YES ADVANCE DIRECTIVE ADVANCE DIRECTIVE DISCUSSED WITH PATIENT:YES HEALTH CARE PROXY DAUGHTER MAIDA REDDY [phone] ALSO HAS POA AND LIVING WILL HOSPITALIZATION/MAJOR DIAGNOSTIC PROCEDURE SURGERY RELATED CHILD VITAL SIGNS WT 207.2 LBS, HT 66 IN, BMI 33.44 INDEX, BP 165/82 MM HG, HR 63 /MIN, RR 18 /MIN, TEMP 96.0 F, OXYGEN SAT % 99%, SAFE IN ENV? (Y/N) YES, NA INITIALS AW 1414, REVIEWED BY: YONNY PEREIRA RN BSN. ASSESSMENTS MYALGIA, OTHER SITE - M79.18 (PRIMARY), RISK: (NULL) PROCEDURES PAIN NURSING RECORD PRE-PROCEDURE IV SITE N/A, PRE-PROCEDURE ORAL MEDICATIONS N/A PROCEDURE IN ROOM 1414 UPON ARRIVAL TO CLINIC, PHYSICIAN IN ROOM 1545, START 1549, FINISH 1553, PHYSICIAN OUT OF ROOM 1555, OUT OF ROOM 1605, STEROID KENALOG, O2 RA, ECG N/A, PATIENT SHIELDED NO, SAFETY STRAP NO, PREP ALCOHOL DR. LOPEZ, IV INFUSED N/A, DRESSING TEGADERM DEREJE PLUNKETT BSN LOC: STEFANO PEREIRA 03/09/2020 2:41:37 PM > 1. ALERT, ORIENTED, LOC REMAINED AT BASELINE THROUGHOUT THE PROCEDURE RESP: STEFANO PEREIRA 03/09/2020 2:41:37 PM > 1. REGULAR, NO DYSPNEA COLOR: STEFANO PEREIRA 03/09/2020 2:41:37 PM > 1. PINK SKIN: STEFANO PEREIRA 03/09/2020 2:41:37 PM > 1. WARM, DRY POSITION: STEFANO PEREIRA 03/09/2020 2:41:37 PM > 4. OTHER, SITTING VITALS: STEFANO PEREIRA 03/09/2020 3:55:12 PM > POST PROCEDURE 145/91, 70, 98% RA, 16. DISCHARGE: POST PAIN 0/10, DRESSING SITE DRY AND INTACT, IV N/A, GAIT STEADY, TEACHING COMPLETED, PATIENT ACKNOWLEDGES UNDERSTANDING YES, PATIENT DISCHARGED AT 1605 PN TRIGGER POINT INJECTION WITH STEROIDS PRE PROCEDURE DIAGNOSIS 1. MYALGIA 2. PAIN AT BILATERAL NECK AREA AND RIGHT SHOULDER AREA POST PROCEDURE DIAGNOSIS 1. MYALGIA 2. PAIN AT BILATERAL NECK AREA AND RIGHT SHOULDER AREA PROCEDURE TRIGGER POINT INJECTION AT BILATERAL NECK AREA AND RIGHT SHOULDER AREA SURGEON DR. LATIA LOPEZ DELIVERY CREW WORKER NONE ANESTHESIA LOCAL PRE PROCEDURE NOTE THE PATIENT HAS A HISTORY OF CHRONIC PAIN AT THE RIGHT AND LEFT NECK AREA AND RIGHT SHOULDER AREA. I EVALUATED THE PATIENT AND REVIEWED THE CHART. THERE IS EVIDENCE OF BANDS OF TISSUE WITH RESTRICTION OF MOVEMENT AND PRESENCE OF TRIGGER POINT AT THE RIGHT AND LEFT NECK AREA AND RIGHT SHOULDER AREA. I WENT OVER THE RISKS, ALTERNATIVES, AND BENEFITS ASSOCIATED WITH THIS PROCEDURE. I DISCUSSED THAT THE USE OF STEROIDS MAY CONTRIBUTE TO IMMUNOSUPPRESSION OF THE PATIENT'S BODY AGAINST INFECTIONS SUCH COVID-19. THE PATIENT IS AWARE OF THE POTENTIAL COMPLICATIONS ASSOCIATED WITH THIS VIRUS, INCLUDING, BUT NOT LIMITED TO, . THE PATIENT WOULD LIKE TO PROCEED AND GIVE CONSENT TO PERFORMED THE PROCEDURE. THE PATIENT DENIES UNEXPLAINABLE WEIGHT LOSS, FEVER, CHILLS, OR NEW CHANGES IN URINARY OR BOWEL CONTROL. THE PATIENT IS COVID-19 NEGATIVE DESCRIPTION OF PROCEDURE THE PATIENT WAS BROUGHT TO THE PROCEDURE ROOM AND PLACED IN THE SITTING POSITION. THE AREA WAS CLEANED WITH ALCOHOL. THE PROCEDURE WAS DONE USING ASEPTIC STERILE TECHNIQUE. A TIMEOUT WAS PERFORMED WHERE LATERALITY AND THE SITE OF THE PROCEDURE WERE CHECKED AND CONFIRMED WITH EVERYONE IN THE ROOM. USING A 25-GAUGE NEEDLE, TRIGGER POINTS WERE INJECTED AT THE RIGHT AND LEFT NECK AREA AND RIGHT SHOULDER AREA WITH A TOTAL OF 40 ML OF BUPIVACAINE 0.25% AND KENALOG 40 MG. THE MEDICATIONS WERE VERIFIED WITH THE NURSE. THERE WAS NO EVIDENCE OF BLOOD OR PARESTHESIA DURING THE PROCEDURE. THE PATIENT WAS SENT TO THE RECOVERY ROOM. THE PATIENT WAS MOVING THE EXTREMITIES AND DOING WELL. THERE WERE NO COMPLICATIONS DURING THE PROCEDURE. ESTIMATED BLOOD LOSS WAS LESS THAN 5 ML POST PROCEDURE NOTE THE PROCEDURE DONE WAS DISCUSSED WITH THE PATIENT. THE PATIENT WILL BE SEEN IN A FOLLOW UP IN THE NEXT FEW WEEKS. I AM LOOKING FOR LONG LASTING PAIN RELIEF FOR THE PATIENT WITH THIS INTERVENTION. INSTRUCTIONS WERE GIVEN, QUESTIONS WERE ANSWERED, AND THE PATIENT EXPRESSED UNDERSTANDING AND AGREES WITH THE PLAN. I, DEA MENEZES, DOCUMENTED THE ABOVE INFORMATION ACTING A SCRIBE FOR DR. LOPEZ. I HAVE REVIEWED THE ABOVE DOCUMENT, WRITTEN BY DEA MENEZES, RESIDENT PROGRAM SPECIALIST, AND I VERIFY THAT IT IS ACCURATE PROCEDURE CODES 75825 INJECT TRIGGER POINTS 3/> DISPOSITION & COMMUNICATION FOLLOW UP FOLLOW UP WITH AMMONIA WORKER (REASON: POST TRIGGER POINT INJECTIONS BILATERAL NECK AND RIGHT SHOULDER) ELECTRONICALLY SIGNED BY LATIA LOPEZ MD, MD ON 03/10/2020 AT 11:17 AM EST DISCLAIMER : THIS IS A VISIT SUMMARY EXTRACTED FROM THE [employer] CHART. IT IS NOT A COPY OF THE [employer] PROGRESS NOTE. ANDREW
== END ==
LOC: M PAIN 14:30
PROVIDERS: ATTEND Anesthesiology
DX: M79.18 Myalgia, other site (principal); G43.909 Migraine, unspecified, not intractable, without status migrainosus; Z88.0 Allergy status to penicillin; Z79.899 Other long term (current) drug therapy
CPT/HCPCS: 20553; J3301

== ENCOUNTER → 2020-04-12 | Outpatient (CLI) | payer MEDICARE ==
[~2020-04-12] MED LIST changes: -AMIT25TA PO; +AMIT25TA17 PO; -BUPIVACAINE HCL 0.25% 10ML VIAL As Ordered ONE; -BUPIVACAINE HCL 0.25% 30ML VIAL As Ordered ONE; -TRIAMCINOLONE ACETONIDE SUSP 40 MG/ML VIAL (J3301) As Ordered ONE
--- NOTE | 2020-04-15 02:29 | ECWPNPC ---
PATIENT NAME: BREEZY REDDY : 1960 GENDER: FEMALE VISIT DATE: 04/12/2020 DISCHARGE DATE: 04/12/20 1549 VISIT LOCKED DATE TIME: PHYSICIAN: NICHOLAS SAINI PHYSICIAN PAGER NO: ACTIVE RESOURCE: NICHOLAS SAINI REASON FOR APPOINTMENT 1. POST TRIGGER POINT INJECTION BILATERAL NECK/RIGHT SHOULDER HISTORY OF PRESENT ILLNESS DEPRESSION SCREENING: PHQ-2 (2015 EDITION) LITTLE INTEREST OR PLEASURE IN DOING THINGS?NOT AT ALL FEELING DOWN, DEPRESSED, OR HOPELESS?NOT AT ALL TOTAL SCORE0 GENERAL: HERE FOR POST PROCEDURE FOLLOW-UP. HAD BILATERAL NECK AND RIGHT SHOULDER TRIGGER POINT INJECTIONS ON 03/19/2020. REPORTS SIGNIFICANT REDUCTION IN PAIN THAT CONTINUES TODAY BUT FEELS PAIN IS BEGINNING TO INCREASE ESPECIALLY IN HER LEFT NECK AREA. PAIN IS AGGRAVATED WITH RANGE OF JOINT MOTION OF THE NECK. REVIEWED TREATMENT PLAN. -. FALL RISK SCREENING: SCREENING :NO FALLS REPORTED IN THE LAST YEAR PAIN SCREENING: PATIENT HAS A COMPLAINT OF ACUTE OR CHRONIC PAIN :YES LOCATION OF PAIN:NECK, RIGHT SHOULDER BACK OF NECK INTENSITY OF PAIN (SCALE OF 1 TO 10):5 WHAT DOES YOUR PAIN FEEL LIKE:ACHING, BURNING, THROBBING, SHOOTING DURATION:CONTINOUS, CONSTANT, ALL DAY PAIN IS INCREASED BY:ACTIVITIES PAIN IS DECREASED BY:USE OF PAIN MEDICATIONS TREATMENT/MEDICATIONS USED TO MANAGE PAIN:OPIOIDS LEVEL OF RELIEF FROM PAIN TREATMENTS IN THE PAST:50% PAIN HAS INTERFERED WITH THE FOLLOWING:WALKING ABILITY, SLEEP NURSING NOTE: -. PAIN CENTER INTAKE QUESTIONS: DO YOU HAVE A HISTORY OF MRSA? :NO DO YOU TAKE A BLOOD THINNERS? :NO DO YOU HAVE ANY BLEEDING DISORDERS? :NO ANY NEW NUMBNESS OR WEAKNESS IN YOUR LEGS OR ARMS? :NO ANY PACEMAKER,DEFIBRILLATOR, OR DORSAL COLUMN STIMULATOR? :NO DO YOU HAVE ANY RASHES OR OPEN SORES? :NO ARE YOU ALLERGIC TO IV DYE? :NO ARE YOU DIABETIC? :NO ANY NEW PROBLEMS WITH YOUR MEDICATIONS? :NO HAVE YOU RECEIVED A VACCINE IN THE PAST 30 DAYS? :NO DO YOU PLAN TO RECEIVE A VACCINE IN THE NEXT 21 DAYS? :YES IF SO WHAT VACCINE AND WHEN? COVID DO YOU NEED ANY PRESCRIPTION? :NO DO YOU TAKE ANY IMMUNOSUPPRESSIVE MEDICATIONS? :NO IS THERE A CHANCE YOU COULD BE ? :NO ARE YOU BREAST FEEDING? :NO CURRENT MEDICATIONS TAKING ZOLPIDEM TARTRATE 10 MG TABLET 1 TABLET AT BEDTIME NEEDED ORALLY ONCE A DAY TAKING MULTIVITAMIN 1 CAP(S) ORALLY DAILY TAKING IBUPROFEN 800 MG TABLET 1 TABLET WITH FOOD ORALLY THREE TIMES A DAY FOR PAIN TAKING AMITRIPTYLINE HCL 50 MG TABLET 1 TABLET ORALLY EVERY 8 HRS NEEDED FOR PAIN MDD2 TAKING TIZANIDINE HCL 4 MG TABLET 1-1 1/2 TAB ORALLY Q8H PRN TAKING GABAPENTIN 300 MG CAPSULE 1 CAPSULE ORALLY BEFORE BEDTIME FOR PAIN TAKING BIOFREEZE ROLL-ON , NOTES: NEEDED NOT-TAKING LIDOCAINE HCL 2 % GEL 1 APPLICATION NEEDED EXTERNALLY NEEDED FOR PAIN (30 GMS TUBE) THREE TIMES A DAY NOT-TAKING DICLOFENAC SODIUM 3 % GEL 1 APPLICATION TRANSDERMAL TWICE A DAY, NOTES: DOES NOT HAVE INSURANCE DENIED MEDICATION LIST REVIEWED AND RECONCILED WITH THE PATIENT PAST MEDICAL HISTORY MIGRAINES CERVICAL DISC DISORDER WITH RADICULOPATHY OF CERVICOTHORACIC REGION MYALGIA OSTEOARTHRTIS ALLERGIES PENICILLIN (FOR ALLERGIES USE ONLY): RASH - ALLERGY SURGICAL HISTORY SURGURIES TO BOTH KNEES (ACL AND SCOPES) SURGURY TO RIGHT SHOULDER -ROTATOR CUFF AND REPAIR 2002 SURGURY TO NECK 2003 FAMILY HISTORY FATHER: , DIAGNOSED WITH HYPERTENSION, DIABETES, UNSPECIFIED HEART DISEASE, UNSPECIFIED CEREBRAL ARTERY OCCLUSION WITH CEREBRAL INFARCTION MOTHER: , HYPERTENSION, UNSPECIFIED HEART DISEASE, DIABETES, UNSPECIFIED CEREBRAL ARTERY OCCLUSION WITH CEREBRAL INFARCTION SIBLINGS: ALIVE, SISTER-OSTEOARTHRITIS AND OSTEOPAROSIS 1DAUGHTER(S) - HEALTHY. SOCIAL HISTORY GENERAL: TOBACCO USE ARE YOU A: NONSMOKER. LATEX QUESTIONNAIRE LATEX ALLERGY : HAVE YOU EVER DEVELOPED ANY TYPE OF REACTION AFTER HANDLING LATEX PRODUCTS SUCH RUBBER GLOVES, CONDOMS, DIAPHRAGMS, BALLOONS, SOCKS, OR UNDERWEAR?NO LATEX ALLERGY : HAVE YOU EVER DEVELOPED ANY TYPE OF REACTION DURING OR AFTER DENTAL APPOINTMENT, VAGINAL/RECTAL EXAMINATION, SURGICAL PROCEDURE, OR ANY OTHER EXPOSURE?NO LATEX RISK : HAVE YOU EVER HAD ANY DIFFICULTY BREATHING OR HIVES AFTER EATING OR HANDLING ANY FRUITS, OR VEGETABLES; SUCH KIWI, BANANAS, STONE FRUITS, OR CHESTNUTSNO LATEX RISK : DO YOU HAVE A PREVIOUS PERSONAL HISTORY OF MORE THAN NINE SURGERIES, SPINA BIFIDA, OR REPEATED CATHERIZATIONS? NO LATEX RISK : ARE YOU FREQUENTLY EXPOSED TO LATEX PRODUCTS IN YOUR OCCUPATION?NO DATE ASKED : 04/12/2020 ALCOHOL SCREENING DID YOU HAVE A DRINK CONTAINING ALCOHOL IN THE PAST YEAR?NO POINTS0 INTERPRETATIONNEGATIVE RECREATIONAL DRUG USE DRUG USE?NO CAFFEINE CAFFEINE USE?YES HOW OFTEN AND HOW MUCH? ONCE A DAYMOUNTAIN DEW CONFUCIANIST [id number] OTHER LANGUAGE LANGUAGES SPOKEN:ROMANSH EDUCATION LEVEL OF EDUCATION:NOT FINISHED COLLEGE LEARNING BARRIERS / SPECIAL NEEDS BARRIERS TO LEARNING?NO HEARING IMPAIRED?NO VISION IMPAIRED?YES :CORRECTIVE LENSES READING COGNITIVELY IMPAIRED?NO READINESS TO LEARN?YES LEARNING PREFERENCES?NO LEARNING CAPABILITIES PRESENT?YES EMOTIONAL BARRIERS?NO SPECIAL DEVICES?NO CORDAGE SALES REPRESENTATIVE NEEDED?NO DOMESTIC VIOLENCE DO YOU FEEL SAFE IN YOUR ENVIRONMENT?YES DIET: REGULAR. EXERCISE: WALKS. MARITAL STATUS: . PAIN CLINIC PFS, CLERGY, PUBLIC HEALTH REFERRALS PFS REFERRAL NEEDED?NO CLERGY REFERRAL NEEDED?NO PUBLIC HEALTH REFERRAL NEEDED?NO WAS THE PROVIDER NOTIFIED OF ANY PERTINENT INFO?YES N/A HAS THE PATIENT BEEN EDUCATED REGARDING HIS/HER PLAN OF CARE?YES HAS THE PATIENT BEEN EDUCATED REGARDING PAIN, THE RISK FOR PAIN, THE IMPORTANCE OF EFFECTIVE PAIN MANAGEMENT, AND THE PAIN ASSESSMENT PROCESS?YES ADVANCE DIRECTIVE ADVANCE DIRECTIVE DISCUSSED WITH PATIENT:YES HEALTH CARE PROXY DAUGHTER MAIDA REDDY [phone] ALSO HAS POA AND LIVING WILL HOSPITALIZATION/MAJOR DIAGNOSTIC PROCEDURE SURGERY RELATED CHILD REVIEW OF SYSTEMS CONSTITUTIONAL: ANY RECENT FEVER NO . CHILLS NO . WEIGHT CHANGE OF UNKNOWN REASONS NO . GASTROENTEROLOGY: NEW UNEXPLAINABLE CHANGES IN BOWEL CONTROL NO . CONSTIPATION NO . GENITOURINARY: ANY NEW CHANGE IN BLADDER CONTROL? NO . NEUROLOGY: NEW ONSET DIZZINESS OR NEUROLOGICAL CHANGES NOT MENTIONED NO . NEW NUMBNESS OR PAIN PATTERNS NOT MENTIONED AND PERTINENT TO TODAY'S VISIT NO . CARDIOLOGY: NEW CHEST PRESSURE NO . NEW CHEST PAIN NO . RESPIRATORY: UNEXPLAINABLE COUGH NO . NEW SHORTNESS OF BREATH NO . VITAL SIGNS WT 207.6 LBS, HT 66 IN, BMI 33.50 INDEX, BP 138/66 MM HG, HR 60 /MIN, RR 18 /MIN, TEMP 97.0 F, OXYGEN SAT % 99%, SAFE IN ENV? (Y/N) YES, REVIEWED BY: SEBASTIAN CASTELLON. EXAMINATION GENERAL EXAMINATION: GENERAL UNCOMFORTABLE . NECK: LIMITED EXTENSION, LIMITED FLEXION . LUNGS: LUNG LOVING ARE CLEAR TO AUSCULTATION BILATERALLY. GOOD MOVEMENT OF AIR . HEART: S1, S2 IN A REGULAR RATE AND RHYTHM. NO SIGNIFICANT MURMURS, RUBS OR GALLOPS NOTED . MUSCULOSKELETAL:TRIGGER POINTS ELICITED OVER RIGHT SHOULDER . CERVICAL:SPECIFIC TRIGGER POINTS OVER R NECK/RHOMBOID REGION, RIGHT GREATER THAN LEFT..PAIN IS AGGREVATED IN THIS REGION WITH ROJM NECK AND RIGHT ARM. ASSESSMENTS OTHER CHRONIC PAIN - G89.29 (PRIMARY) MYALGIA, OTHER SITE - M79.18 TREATMENT OTHER CHRONIC PAIN PAIN PROCEDURE LOGDATE OF AVNTFRMMQ58/8/20PROCEDURE:TRIGGER POINT INJECTION BILATERAL NECK AND RIGHT SHOULDERAMOUNT OF PRE SEDATE0/0RESULT:MARKED REDUCTION IN RIGHT NECK AND SHOULDER PAIN CONTINUES TODAY. LEFT NECK IS BOTHERSOME NOTES: TRIGGER POINT INJECTIONS RIGHT NECK, RIGHT SHOULDER, LEFT NECK PRE- PROCEDURE INSTRUCTION LISHA CASTELLON. PROCEDURE CODES [id number] ESTABILISHED PATIENT [facility] CHARGE DISPOSITION & COMMUNICATION FOLLOW UP POSTPROCEDURE (REASON: TRIGGER POINT INJECTIONS RIGHT NECK, RIGHT SHOULDER, LEFT NECK) ELECTRONICALLY SIGNED BY TAMI CORTEZ ON 04/14/2020 AT 01:44 PM EST DISCLAIMER : THIS IS A VISIT SUMMARY EXTRACTED FROM THE [employer] CHART. IT IS NOT A COPY OF THE [employer] PROGRESS NOTE. ANDREW
== END ==
LOC: M PAIN 14:45
PROVIDERS: ATTEND Nurse Practitioner Family
DX: G89.29 Other chronic pain (principal); M79.18 Myalgia, other site; G43.909 Migraine, unspecified, not intractable, without status migrainosus; Z88.0 Allergy status to penicillin; Z79.899 Other long term (current) drug therapy

== ENCOUNTER → 2020-05-17 | Outpatient (CLI) | payer MEDICARE ==
[~2020-05-17] MED LIST changes: +BUPIVACAINE HCL 0.25% 10ML VIAL As Ordered ONE; +BUPIVACAINE HCL 0.25% 30ML VIAL As Ordered ONE; +TRIAMCINOLONE ACETONIDE SUSP 40 MG/ML VIAL (J3301) As Ordered ONE
--- NOTE | 2020-05-26 05:22 | ECWPNPC ---
PATIENT NAME: BREEZY REDDY : 1960 GENDER: FEMALE VISIT DATE: 05/17/2020 DISCHARGE DATE: 05/17/20 0950 VISIT LOCKED DATE TIME: PHYSICIAN: LATIA LOPEZ MD PHYSICIAN PAGER NO: ACTIVE RESOURCE: LATIA LOPEZ MD REASON FOR APPOINTMENT 1. TRIGGER POINT INJECTIONS BILATERAL NECK AND RIGHT SHOULDER HISTORY OF PRESENT ILLNESS GENERAL: -. FALL RISK SCREENING: SCREENING :NO FALLS REPORTED IN THE LAST YEAR PAIN SCREENING: PATIENT HAS A COMPLAINT OF ACUTE OR CHRONIC PAIN :YES LOCATION OF PAIN:NECK, RIGHT SHOULDER INTENSITY OF PAIN (SCALE OF 1 TO 10):10 WHAT DOES YOUR PAIN FEEL LIKE:ACHING, BURNING, CONTINOUS, SHARP, STABBING, TENDER, THROBBING, SORE, SHOOTING DURATION:CONTINOUS, CONSTANT PAIN IS INCREASED BY:ACTIVITIES PAIN IS DECREASED BY:USE OF PAIN MEDICATIONS, OTHERS HEAT/ICE NURSING NOTE: -. PAIN CENTER INTAKE QUESTIONS: DO YOU HAVE A HISTORY OF MRSA? :NO DO YOU TAKE A BLOOD THINNERS? :NO DO YOU HAVE ANY BLEEDING DISORDERS? :NO ANY NEW NUMBNESS OR WEAKNESS IN YOUR LEGS OR ARMS? :NO ANY PACEMAKER,DEFIBRILLATOR, OR DORSAL COLUMN STIMULATOR? :NO DO YOU HAVE ANY RASHES OR OPEN SORES? :NO ARE YOU ALLERGIC TO IV DYE? :NO ARE YOU DIABETIC? :NO ANY NEW PROBLEMS WITH YOUR MEDICATIONS? :NO HAVE YOU RECEIVED A VACCINE IN THE PAST 30 DAYS? :YES IF SO WHAT VACCINE AND WHEN? 2ND COVID VACCINE 05/03/20 DO YOU PLAN TO RECEIVE A VACCINE IN THE NEXT 21 DAYS? :NO DO YOU TAKE ANY IMMUNOSUPPRESSIVE MEDICATIONS? :NO ANY HISTORY OF SEIZURES? :NO ANY HISTORY OF CARDIAC ISSUES OR EVENTS? :NO DO YOU HAVE SLEEP APNEA? :NO ANY RECENT HEAD INJURY? :NO DO YOU HAVE ANY NEW INFECTIONS? :NO IS THERE A CHANCE YOU COULD BE ? :NO ARE YOU BREAST FEEDING? :NO WHEN DID YOU LAST EAT? : -05/16/20 WHEN DID YOU LAST DRINK? : -05/17/20 WHAT DID YOU LAST DRINK? : -SIPS OF WATER NAME OF PERSON DRIVING YOU HOME? : -MAIDA DO YOU HAVE ANY OTHER QUESTIONS OR CONCERNS? : - CURRENT MEDICATIONS TAKING ZOLPIDEM TARTRATE 10 MG TABLET 1 TABLET AT BEDTIME NEEDED ORALLY ONCE A DAY TAKING MULTIVITAMIN 1 CAP(S) ORALLY DAILY TAKING IBUPROFEN 800 MG TABLET 1 TABLET WITH FOOD ORALLY THREE TIMES A DAY FOR PAIN, NOTES: 05/17/20 TAKING AMITRIPTYLINE HCL 50 MG TABLET 1 TABLET ORALLY EVERY 8 HRS NEEDED FOR PAIN MDD2 TAKING GABAPENTIN 300 MG CAPSULE 1 CAPSULE ORALLY BEFORE BEDTIME FOR PAIN TAKING BIOFREEZE ROLL-ON , NOTES: NEEDED TAKING TIZANIDINE HCL 4 MG TABLET 1-1 1/2 TAB ORALLY Q8H PRN NOT-TAKING LIDOCAINE HCL 2 % GEL 1 APPLICATION NEEDED EXTERNALLY NEEDED FOR PAIN (30 GMS TUBE) THREE TIMES A DAY NOT-TAKING DICLOFENAC SODIUM 3 % GEL 1 APPLICATION TRANSDERMAL TWICE A DAY, NOTES: DOES NOT HAVE INSURANCE DENIED MEDICATION LIST REVIEWED AND RECONCILED WITH THE PATIENT PAST MEDICAL HISTORY MIGRAINES CERVICAL DISC DISORDER WITH RADICULOPATHY OF CERVICOTHORACIC REGION MYALGIA OSTEOARTHRTIS ALLERGIES PENICILLIN (FOR ALLERGIES USE ONLY): RASH - ALLERGY SURGICAL HISTORY SURGURIES TO BOTH KNEES (ACL AND SCOPES) SURGURY TO RIGHT SHOULDER -ROTATOR CUFF AND REPAIR 2002 SURGURY TO NECK 2003 FAMILY HISTORY FATHER: , DIAGNOSED WITH HYPERTENSION, UNSPECIFIED HEART DISEASE, DIABETES, UNSPECIFIED CEREBRAL ARTERY OCCLUSION WITH CEREBRAL INFARCTION MOTHER: , HYPERTENSION, UNSPECIFIED HEART DISEASE, DIABETES, UNSPECIFIED CEREBRAL ARTERY OCCLUSION WITH CEREBRAL INFARCTION SIBLINGS: ALIVE, SISTER-OSTEOARTHRITIS AND OSTEOPAROSIS 1DAUGHTER(S) - HEALTHY. SOCIAL HISTORY GENERAL: TOBACCO USE ARE YOU A: NONSMOKER. LATEX QUESTIONNAIRE LATEX ALLERGY : HAVE YOU EVER DEVELOPED ANY TYPE OF REACTION AFTER HANDLING LATEX PRODUCTS SUCH RUBBER GLOVES, CONDOMS, DIAPHRAGMS, BALLOONS, SOCKS, OR UNDERWEAR?NO LATEX ALLERGY : HAVE YOU EVER DEVELOPED ANY TYPE OF REACTION DURING OR AFTER DENTAL APPOINTMENT, VAGINAL/RECTAL EXAMINATION, SURGICAL PROCEDURE, OR ANY OTHER EXPOSURE?NO LATEX RISK : HAVE YOU EVER HAD ANY DIFFICULTY BREATHING OR HIVES AFTER EATING OR HANDLING ANY FRUITS, OR VEGETABLES; SUCH KIWI, BANANAS, STONE FRUITS, OR CHESTNUTSNO LATEX RISK : DO YOU HAVE A PREVIOUS PERSONAL HISTORY OF MORE THAN NINE SURGERIES, SPINA BIFIDA, OR REPEATED CATHERIZATIONS? NO LATEX RISK : ARE YOU FREQUENTLY EXPOSED TO LATEX PRODUCTS IN YOUR OCCUPATION?NO DATE ASKED : 05/14/2020 ALCOHOL USE: YES. ALCOHOL SCREENING DID YOU HAVE A DRINK CONTAINING ALCOHOL IN THE PAST YEAR?NO POINTS0 INTERPRETATIONNEGATIVE RECREATIONAL DRUG USE DRUG USE?NO CAFFEINE CAFFEINE USE?YES HOW OFTEN AND HOW MUCH? ONCE A DAYMOUNTAIN DEW YAZIDI [id number] OTHER LANGUAGE LANGUAGES SPOKEN:[place]IAN EDUCATION LEVEL OF EDUCATION:NOT FINISHED COLLEGE LEARNING BARRIERS / SPECIAL NEEDS BARRIERS TO LEARNING?NO HEARING IMPAIRED?NO VISION IMPAIRED?YES :CORRECTIVE LENSES READING COGNITIVELY IMPAIRED?NO READINESS TO LEARN?YES LEARNING PREFERENCES?NO LEARNING CAPABILITIES PRESENT?YES EMOTIONAL BARRIERS?NO SPECIAL DEVICES?NO AIR CARGO SPECIALIST NEEDED?NO DOMESTIC VIOLENCE DO YOU FEEL SAFE IN YOUR ENVIRONMENT?YES DIET: REGULAR. EXERCISE: WALKS. MARITAL STATUS: . - PFS REFERRAL NEEDED?NO CLERGY REFERRAL NEEDED?NO PUBLIC HEALTH REFERRAL NEEDED?NO WAS THE PROVIDER NOTIFIED OF ANY PERTINENT INFO?YES N/A HAS THE PATIENT BEEN EDUCATED REGARDING HIS/HER PLAN OF CARE?YES HAS THE PATIENT BEEN EDUCATED REGARDING PAIN, THE RISK FOR PAIN, THE IMPORTANCE OF EFFECTIVE PAIN MANAGEMENT, AND THE PAIN ASSESSMENT PROCESS?YES ADVANCE DIRECTIVE ADVANCE DIRECTIVE DISCUSSED WITH PATIENT:YES HEALTH CARE PROXY DAUGHTER MAIDA REDDY [phone] ALSO HAS POA AND LIVING WILL HOSPITALIZATION/MAJOR DIAGNOSTIC PROCEDURE SURGERY RELATED CHILD VITAL SIGNS WT 207.4 LBS, HT 66 IN, BMI 33.47 INDEX, BP 132/84 MM HG, HR 77 /MIN, RR 16 /MIN, TEMP 96.8 F, OXYGEN SAT % 97, SAFE IN ENV? (Y/N) Y, REVIEWED BY: BERT. EXAMINATION GENERAL EXAMINATION: THE PATIENT IS ALERT, ORIENTED TIMES THREE AND COOPERATIVE. LUNGS ARE CLEAR TO AUSCULTATION. HEART SHOWS REGULAR RHYTHM, NO MURMURS AND NO GALLOPS. ASSESSMENTS MYALGIA - M79.1 (PRIMARY) TREATMENT MYALGIA LAB: COMPLETION OF PROCEDURAL VISIT WHEN MEETS CRITERIA (ORDERED FOR 05/17/2020) BENTLEY MARK 05/17/2020 9:54:15 AM > CRITERIA MET OTHERS NOTES: PAT COMPLETED 05/14/20 Valerio FRANCO RN. PROCEDURES PAIN NURSING RECORD PROCEDURE IN ROOM 0840, PHYSICIAN IN ROOM 0930, START 0937, FINISH 0941, PHYSICIAN OUT OF ROOM 0941, OUT OF ROOM 0950, ECG N/A, PATIENT SHIELDED N/A, SAFETY STRAP N/A, PREP ALCOHOL BY DR LOPEZ, DRESSING TEGADERM BY BERT LOC: 1. ALERT, ORIENTED, BENLTEY MARK 05/17/2020 84409 AM > RESP: 1. REGULAR, NO DYSPNEA, JASBENTLEY 05/17/2020 0935AM > COLOR: 1. PINK, JASBENTLEY 05/17/2020 0935 AM > SKIN: 1. WARM, DRY, JASBENTLEY 05/17/2020 0935 AM > POSITION: 1. PRONE, 5. SITTING, JASBENTLEY 05/17/2020 0935 AM > VITALS: EXIT VITALS HR 64, 140/87, 93% NOTES Cynthia MARK RN COMPLETION OF PROCEDURE APPOINTMENT: POST PAIN 0, DRESSING SITE DRY AND INTACT, IV N/A, GAIT STEADY, TEACHING COMPLETED, PATIENT ACKNOWLEDGES UNDERSTANDING YES, PROCEDURE APPOINTMENT COMPLETED AT 0950 PN TRIGGER POINT INJECTION WITH STEROIDS PRE PROCEDURE DIAGNOSIS 1. MYALGIA 2. PAIN AT BILATERAL NECK AREA AND RIGHT SHOULDER AREA POST PROCEDURE DIAGNOSIS 1. MYALGIA 2. PAIN AT BILATERAL NECK AREA AND RIGHT SHOULDER AREA PROCEDURE TRIGGER POINT INJECTION AT BILATERAL NECK AREA AND RIGHT NECK AREA SURGEON DR. LATIA LOPEZ ELECTRICAL HIGH TENSION TESTER NONE ANESTHESIA LOCAL PRE PROCEDURE NOTE THE PATIENT HAS A HISTORY OF CHRONIC PAIN AT THE RIGHT AND LEFT NECK AREA AND RIGHT SHOULDER AREA. I EVALUATED THE PATIENT AND REVIEWED THE CHART. THERE IS EVIDENCE OF BANDS OF TISSUE WITH RESTRICTION OF MOVEMENT AND PRESENCE OF TRIGGER POINT AT THE RIGHT AND LEFT NECK AREA AND RIGHT SHOULDER AREA. I WENT OVER THE RISKS, ALTERNATIVES, AND BENEFITS ASSOCIATED WITH THIS PROCEDURE. THE PATIENT WOULD LIKE TO PROCEED AND GIVE CONSENT TO PERFORMED THE PROCEDURE. THE PATIENT DENIES UNEXPLAINABLE WEIGHT LOSS, FEVER, CHILLS, OR NEW CHANGES IN URINARY OR BOWEL CONTROL. THE PATIENT IS COVID-19 NEGATIVE DESCRIPTION OF PROCEDURE THE PATIENT WAS BROUGHT TO THE PROCEDURE ROOM AND PLACED IN THE SITTING POSITION. THE AREA WAS CLEANED WITH ALCOHOL. THE PROCEDURE WAS DONE USING ASEPTIC STERILE TECHNIQUE. A TIMEOUT WAS PERFORMED WHERE THE CONSENTED SITE WAS VERIFIED WITH EVERYONE IN THE ROOM. USING A 25-GAUGE NEEDLE, TRIGGER POINTS WERE INJECTED AT THE RIGHT AND LEFT NECK AREA AND RIGHT SHOULDER AREA WITH A TOTAL OF 40 ML OF BUPIVACAINE 0.25% AND KENALOG 40 MG. THE MEDICATIONS WERE VERIFIED WITH THE NURSE. THERE WAS NO EVIDENCE OF BLOOD OR PARESTHESIA DURING THE PROCEDURE. THE PATIENT WAS SENT TO THE RECOVERY ROOM. THE PATIENT WAS MOVING THE EXTREMITIES AND DOING WELL. THERE WERE NO COMPLICATIONS DURING THE PROCEDURE. ESTIMATED BLOOD LOSS WAS LESS THAN 5 ML POST PROCEDURE NOTE THE PROCEDURE DONE WAS DISCUSSED WITH THE PATIENT. THE PATIENT WILL BE SEEN IN A FOLLOW UP IN THE NEXT FEW WEEKS. I AM LOOKING FOR LONG LASTING PAIN RELIEF FOR THE PATIENT WITH THIS INTERVENTION. INSTRUCTIONS WERE GIVEN, QUESTIONS WERE ANSWERED, AND THE PATIENT EXPRESSED UNDERSTANDING AND AGREES WITH THE PLAN. I, EDA MENEZES, DOCUMENTED THE ABOVE INFORMATION ACTING A SCRIBE FOR DR. LOPEZ. I HAVE REVIEWED THE ABOVE DOCUMENT, WRITTEN BY DEA MENEZES, CAREER AND GUIDANCE COUNSELOR, AND I VERIFY THAT IT IS ACCURATE PROCEDURE CODES 31749 INJECT TRIGGER POINTS 3/> DISPOSITION & COMMUNICATION FOLLOW UP FOLLOW UP WITH MAT PACKER (REASON: POST TRIGGER POINT INJECTIONS BILATERAL NECK AND RIGHT SHOULDER) ELECTRONICALLY SIGNED BY LATIA LOPEZ MD, MD ON 05/25/2020 AT 12:37 PM EST DISCLAIMER : THIS IS A VISIT SUMMARY EXTRACTED FROM THE [email or web address] CHART. IT IS NOT A COPY OF THE [facility] PROGRESS NOTE. ANDREW
== END ==
LOC: M PAIN 08:30
PROVIDERS: ATTEND Anesthesiology
DX: M79.18 Myalgia, other site (principal); G43.909 Migraine, unspecified, not intractable, without status migrainosus; M50.13 Cervical disc disorder with radiculopathy, cervicothoracic region; Z79.899 Other long term (current) drug therapy; Z88.0 Allergy status to penicillin
CPT/HCPCS: 20553; J3301

== ENCOUNTER → 2020-05-31 | Outpatient (CLI) | payer MEDICARE ==
[~2020-05-31] MED LIST changes: -BUPIVACAINE HCL 0.25% 10ML VIAL As Ordered ONE; -BUPIVACAINE HCL 0.25% 30ML VIAL As Ordered ONE; -TRIAMCINOLONE ACETONIDE SUSP 40 MG/ML VIAL (J3301) As Ordered ONE
--- NOTE | 2020-06-01 05:22 | ECWPNPC ---
PATIENT NAME: BREEZY REDDY : 1960 GENDER: FEMALE VISIT DATE: 05/31/2020 DISCHARGE DATE: 05/31/20 1128 VISIT LOCKED DATE TIME: PHYSICIAN: NICHOLAS SAINI PHYSICIAN PAGER NO: ACTIVE RESOURCE: NICHOLAS SAINI REASON FOR APPOINTMENT 1. POST TRIGGER POINT INJECTIONS RIGHT NECK, RIGHT SHOULDER, LEFT NECK HISTORY OF PRESENT ILLNESS GENERAL: HERE FOR POST PROCEDURE F/U.HAD TRIGGER POINT INJECTIONS BILATERAL NECK AND RIGHT SHOULDER ON 05/17/20.REPORTING MARKED REDUCTION IN PAIN THAT CONTINUES TODAY. -. FALL RISK SCREENING: SCREENING :NO FALLS REPORTED IN THE LAST YEAR PAIN SCREENING: PATIENT HAS A COMPLAINT OF ACUTE OR CHRONIC PAIN :YES LOCATION OF PAIN:NECK, BOTH SHOULDERS INTENSITY OF PAIN (SCALE OF 1 TO 10):2 WHAT DOES YOUR PAIN FEEL LIKE:ACHING, BURNING, CONTINOUS, STABBING, SHOOTING DURATION:CONTINOUS, CONSTANT, ALL DAY PAIN IS INCREASED BY:ACTIVITIES PAIN IS DECREASED BY:USE OF PAIN MEDICATIONS NURSING NOTE: -. PAIN CENTER INTAKE QUESTIONS: DO YOU HAVE A HISTORY OF MRSA? :NO DO YOU TAKE A BLOOD THINNERS? :NO DO YOU HAVE ANY BLEEDING DISORDERS? :NO ANY NEW NUMBNESS OR WEAKNESS IN YOUR LEGS OR ARMS? :NO ANY PACEMAKER,DEFIBRILLATOR, OR DORSAL COLUMN STIMULATOR? :NO DO YOU HAVE ANY RASHES OR OPEN SORES? :NO ARE YOU ALLERGIC TO IV DYE? :NO ARE YOU DIABETIC? :NO ANY NEW PROBLEMS WITH YOUR MEDICATIONS? :NO HAVE YOU RECEIVED A VACCINE IN THE PAST 30 DAYS? :YES IF SO WHAT VACCINE AND WHEN? COVID 2ND DO YOU PLAN TO RECEIVE A VACCINE IN THE NEXT 21 DAYS? :NO DO YOU NEED ANY PRESCRIPTION? :NO DO YOU TAKE ANY IMMUNOSUPPRESSIVE MEDICATIONS? :NO IS THERE A CHANCE YOU COULD BE ? :NO ARE YOU BREAST FEEDING? :NO CURRENT MEDICATIONS TAKING ZOLPIDEM TARTRATE 10 MG TABLET 1 TABLET AT BEDTIME NEEDED ORALLY ONCE A DAY TAKING MULTIVITAMIN 1 CAP(S) ORALLY DAILY TAKING IBUPROFEN 800 MG TABLET 1 TABLET WITH FOOD ORALLY THREE TIMES A DAY FOR PAIN TAKING AMITRIPTYLINE HCL 50 MG TABLET 1 TABLET ORALLY EVERY 8 HRS NEEDED FOR PAIN MDD2 TAKING GABAPENTIN 300 MG CAPSULE 1 CAPSULE ORALLY BEFORE BEDTIME FOR PAIN TAKING BIOFREEZE ROLL-ON TAKING TIZANIDINE HCL 4 MG TABLET 1-1 1/2 TAB ORALLY Q8H PRN NOT-TAKING LIDOCAINE HCL 2 % GEL 1 APPLICATION NEEDED EXTERNALLY NEEDED FOR PAIN (30 GMS TUBE) THREE TIMES A DAY NOT-TAKING DICLOFENAC SODIUM 3 % GEL 1 APPLICATION TRANSDERMAL TWICE A DAY, NOTES: DOES NOT HAVE INSURANCE DENIED MEDICATION LIST REVIEWED AND RECONCILED WITH THE PATIENT PAST MEDICAL HISTORY MIGRAINES CERVICAL DISC DISORDER WITH RADICULOPATHY OF CERVICOTHORACIC REGION MYALGIA OSTEOARTHRTIS ALLERGIES PENICILLIN (FOR ALLERGIES USE ONLY): RASH - ALLERGY SOCIAL HISTORY GENERAL: TOBACCO USE ARE YOU A: NONSMOKER. LATEX QUESTIONNAIRE LATEX ALLERGY : HAVE YOU EVER DEVELOPED ANY TYPE OF REACTION AFTER HANDLING LATEX PRODUCTS SUCH RUBBER GLOVES, CONDOMS, DIAPHRAGMS, BALLOONS, SOCKS, OR UNDERWEAR?NO LATEX ALLERGY : HAVE YOU EVER DEVELOPED ANY TYPE OF REACTION DURING OR AFTER DENTAL APPOINTMENT, VAGINAL/RECTAL EXAMINATION, SURGICAL PROCEDURE, OR ANY OTHER EXPOSURE?NO LATEX RISK : HAVE YOU EVER HAD ANY DIFFICULTY BREATHING OR HIVES AFTER EATING OR HANDLING ANY FRUITS, OR VEGETABLES; SUCH KIWI, BANANAS, STONE FRUITS, OR CHESTNUTSNO LATEX RISK : DO YOU HAVE A PREVIOUS PERSONAL HISTORY OF MORE THAN NINE SURGERIES, SPINA BIFIDA, OR REPEATED CATHERIZATIONS? NO LATEX RISK : ARE YOU FREQUENTLY EXPOSED TO LATEX PRODUCTS IN YOUR OCCUPATION?NO DATE ASKED : 05/31/2020 ALCOHOL USE: YES. ALCOHOL SCREENING DID YOU HAVE A DRINK CONTAINING ALCOHOL IN THE PAST YEAR?NO POINTS0 INTERPRETATIONNEGATIVE RECREATIONAL DRUG USE DRUG USE?NO CAFFEINE CAFFEINE USE?YES HOW OFTEN AND HOW MUCH? ONCE A DAYMOUNTAIN DEW ANABAPTIST [id number] OTHER LANGUAGE LANGUAGES SPOKEN:[place]ER EDUCATION LEVEL OF EDUCATION:NOT FINISHED COLLEGE LEARNING BARRIERS / SPECIAL NEEDS CHANGE FROM LAST VISIT?NO BARRIERS TO LEARNING?NO HEARING IMPAIRED?NO VISION IMPAIRED?YES :CORRECTIVE LENSES READING COGNITIVELY IMPAIRED?NO READINESS TO LEARN?YES LEARNING PREFERENCES?NO LEARNING CAPABILITIES PRESENT?YES EMOTIONAL BARRIERS?NO SPECIAL DEVICES?NO WATER SYSTEM OPERATOR NEEDED?NO DOMESTIC VIOLENCE DO YOU FEEL SAFE IN YOUR ENVIRONMENT?YES DIET: REGULAR. EXERCISE: WALKS. MARITAL STATUS: . - PFS REFERRAL NEEDED?NO CLERGY REFERRAL NEEDED?NO PUBLIC HEALTH REFERRAL NEEDED?NO WAS THE PROVIDER NOTIFIED OF ANY PERTINENT INFO?YES N/A HAS THE PATIENT BEEN EDUCATED REGARDING HIS/HER PLAN OF CARE?YES HAS THE PATIENT BEEN EDUCATED REGARDING PAIN, THE RISK FOR PAIN, THE IMPORTANCE OF EFFECTIVE PAIN MANAGEMENT, AND THE PAIN ASSESSMENT PROCESS?YES ADVANCE DIRECTIVE ADVANCE DIRECTIVE DISCUSSED WITH PATIENT:YES HEALTH CARE PROXY DAUGHTER MAIDA REDDY [phone] ALSO HAS POA AND LIVING WILL REVIEW OF SYSTEMS CONSTITUTIONAL: ANY RECENT FEVER NO . CHILLS NO . WEIGHT CHANGE OF UNKNOWN REASONS NO . GASTROENTEROLOGY: NEW UNEXPLAINABLE CHANGES IN BOWEL CONTROL NO . CONSTIPATION NO . GENITOURINARY: ANY NEW CHANGE IN BLADDER CONTROL? NO . NEUROLOGY: NEW ONSET DIZZINESS OR NEUROLOGICAL CHANGES NOT MENTIONED NO . NEW NUMBNESS OR PAIN PATTERNS NOT MENTIONED AND PERTINENT TO TODAY'S VISIT NO . CARDIOLOGY: NEW CHEST PRESSURE NO . PATIENT DENIES NO . RESPIRATORY: UNEXPLAINABLE COUGH NO . NEW SHORTNESS OF BREATH NO . VITAL SIGNS WT 209 LBS, HT 66 IN, BMI 33.73 INDEX, BP 144/77 MM HG, HR 55 /MIN, RR 16 /MIN, TEMP 95.6 F, OXYGEN SAT % 98%, SAFE IN ENV? (Y/N) YEST.JANIS CASTELLON. EXAMINATION GENERAL EXAMINATION: GENERALAWAKE,ALERT ,PLEASANT . PSYCHAFFECT NORMAL . LUNGS:LUNG LOVING ARE CLEAR TO AUSCULTATION BILATERALLY. GOOD MOVEMENT OF AIR . HEART:S1, S2 IN A REGULAR RATE AND RHYTHM. NO SIGNIFICANT MURMURS, RUBS OR GALLOPS NOTED . ASSESSMENTS OTHER CHRONIC PAIN - G89.29 (PRIMARY) MYALGIA, OTHER SITE - M79.18 TREATMENT OTHER CHRONIC PAIN PAIN PROCEDURE LOGDATE OF PROCEDURE05/17/2020ROCEDURE:TRIGGER POINT INJECTION BILATERL NECK AND RIGHT SHOULDERAMOUNT OF PRE SEDATE0/0RESULT:MARKED REDUCTION IN PAIN CONTINUES TODAY PROCEDURE CODES FA211 ESTABILISHED PATIENT [facility] CHARGE DISPOSITION & COMMUNICATION FOLLOW UP 3 MONTHS (REASON: NECK PAIN/RESPONDS WELL TO TPI) ELECTRONICALLY SIGNED BY TAMI CORTEZ ON 05/31/2020 AT 11:04 AM EST DISCLAIMER : THIS IS A VISIT SUMMARY EXTRACTED FROM THE [facility] CHART. IT IS NOT A COPY OF THE [facility] PROGRESS NOTE. ANDREW
== END ==
LOC: M PAIN 10:15
PROVIDERS: ATTEND Nurse Practitioner Family
DX: G89.29 Other chronic pain (principal); M79.18 Myalgia, other site; G43.909 Migraine, unspecified, not intractable, without status migrainosus; Z88.0 Allergy status to penicillin; Z79.899 Other long term (current) drug therapy

== ENCOUNTER → 2020-08-24 | Outpatient (CLI) | payer MEDICARE ==
--- NOTE | 2020-08-26 01:36 | ECWPNPC ---
PATIENT NAME: BREEZY REDDY : 1960 GENDER: FEMALE VISIT DATE: 08/24/2020 DISCHARGE DATE: 08/24/20 1517 VISIT LOCKED DATE TIME: PHYSICIAN: NICHOLAS SAINI PHYSICIAN PAGER NO: ACTIVE RESOURCE: NICHOLAS SAINI REASON FOR APPOINTMENT 1. NECK PAIN/RESPONDS WELL TO TPI HISTORY OF PRESENT ILLNESS GENERAL: HERE FOR F/U OF CHRONIC RIGHT NECK PAIN.PAIN HAS INCREASED OVER THE PAST MONTH.PAIN IS AGGREVATED BY MOVEMENT OF HEAD.DOING HOME EXCERSISE AND STRETCHING,BIOFREEZE AND TOPICAL OTC ANTIINFLAMMATORY MEDICATIONS WITHOUT RELIEF.USING HEAT AND ICE.PAIN CONTINUES DESPITE THESE MEASURES. -. FALL RISK SCREENING: SCREENING : NO FALLS REPORTED IN THE LAST YEAR. PAIN SCREENING: PATIENT HAS A COMPLAINT OF ACUTE OR CHRONIC PAIN :YES LOCATION OF PAIN:NECK INTENSITY OF PAIN (SCALE OF 1 TO 10):8 WHAT DOES YOUR PAIN FEEL LIKE:ACHING, BURNING, INTERMITTENT, SHARP, TENDER, THROBBING, SHOOTING DURATION:CONTINOUS, CONSTANT, ALL DAY PAIN IS INCREASED BY:ACTIVITIES PAIN IS DECREASED BY:USE OF PAIN MEDICATIONS NURSING NOTE: -. PAIN CENTER INTAKE QUESTIONS: DO YOU HAVE A HISTORY OF MRSA? :NO DO YOU TAKE A BLOOD THINNERS? :NO DO YOU HAVE ANY BLEEDING DISORDERS? :NO ANY NEW NUMBNESS OR WEAKNESS IN YOUR LEGS OR ARMS? :NO ANY PACEMAKER,DEFIBRILLATOR, OR DORSAL COLUMN STIMULATOR? :NO DO YOU HAVE ANY RASHES OR OPEN SORES? :NO ARE YOU ALLERGIC TO IV DYE? :NO ARE YOU DIABETIC? :NO ANY NEW PROBLEMS WITH YOUR MEDICATIONS? :NO HAVE YOU RECEIVED A VACCINE IN THE PAST 30 DAYS? :YES IF SO WHAT VACCINE AND WHEN? COVID 2ND DO YOU PLAN TO RECEIVE A VACCINE IN THE NEXT 21 DAYS? :NO DO YOU NEED ANY PRESCRIPTION? :NO DO YOU TAKE ANY IMMUNOSUPPRESSIVE MEDICATIONS? :NO IS THERE A CHANCE YOU COULD BE ? :NO ARE YOU BREAST FEEDING? :NO CURRENT MEDICATIONS TAKING ZOLPIDEM TARTRATE 5 MG TABLET 1 TABLET AT BEDTIME NEEDED ORALLY ONCE A DAY TAKING MULTIVITAMIN 1 CAP(S) ORALLY DAILY TAKING IBUPROFEN 800 MG TABLET 1 TABLET WITH FOOD ORALLY THREE TIMES A DAY FOR PAIN TAKING AMITRIPTYLINE HCL 50 MG TABLET 1 TABLET ORALLY EVERY 8 HRS NEEDED FOR PAIN MDD2 TAKING GABAPENTIN 300 MG CAPSULE 1 CAPSULE ORALLY BEFORE BEDTIME FOR PAIN TAKING BIOFREEZE ROLL-ON TAKING TIZANIDINE HCL 4 MG TABLET 1-1 1/2 TAB ORALLY Q8H PRN TAKING ROSUVASTATIN CALCIUM 10 MG TABLET 1 TABLET ORALLY ONCE A DAY NOT-TAKING LIDOCAINE HCL 2 % GEL 1 APPLICATION NEEDED EXTERNALLY NEEDED FOR PAIN (30 GMS TUBE) THREE TIMES A DAY NOT-TAKING DICLOFENAC SODIUM 3 % GEL 1 APPLICATION TRANSDERMAL TWICE A DAY, NOTES: DOES NOT HAVE INSURANCE DENIED MEDICATION LIST REVIEWED AND RECONCILED WITH THE PATIENT PAST MEDICAL HISTORY MIGRAINES CERVICAL DISC DISORDER WITH RADICULOPATHY OF CERVICOTHORACIC REGION MYALGIA OSTEOARTHRTIS ALLERGIES PENICILLIN (FOR ALLERGIES USE ONLY): RASH - ALLERGY SOCIAL HISTORY GENERAL: TOBACCO USE ARE YOU A: NONSMOKER. LATEX QUESTIONNAIRE LATEX ALLERGY : HAVE YOU EVER DEVELOPED ANY TYPE OF REACTION AFTER HANDLING LATEX PRODUCTS SUCH RUBBER GLOVES, CONDOMS, DIAPHRAGMS, BALLOONS, SOCKS, OR UNDERWEAR?NO LATEX ALLERGY : HAVE YOU EVER DEVELOPED ANY TYPE OF REACTION DURING OR AFTER DENTAL APPOINTMENT, VAGINAL/RECTAL EXAMINATION, SURGICAL PROCEDURE, OR ANY OTHER EXPOSURE?NO LATEX RISK : HAVE YOU EVER HAD ANY DIFFICULTY BREATHING OR HIVES AFTER EATING OR HANDLING ANY FRUITS, OR VEGETABLES; SUCH KIWI, BANANAS, STONE FRUITS, OR CHESTNUTSNO LATEX RISK : DO YOU HAVE A PREVIOUS PERSONAL HISTORY OF MORE THAN NINE SURGERIES, SPINA BIFIDA, OR REPEATED CATHERIZATIONS? NO LATEX RISK : ARE YOU FREQUENTLY EXPOSED TO LATEX PRODUCTS IN YOUR OCCUPATION?NO DATE ASKED : 08/24/2020 ALCOHOL USE: YES. ALCOHOL SCREENING DID YOU HAVE A DRINK CONTAINING ALCOHOL IN THE PAST YEAR?NO POINTS0 INTERPRETATIONNEGATIVE RECREATIONAL DRUG USE DRUG USE?NO CAFFEINE CAFFEINE USE?YES HOW OFTEN AND HOW MUCH? ONCE A [employer]AIN DEW CHRISTIANITY [id number] OTHER LANGUAGE LANGUAGES SPOKEN:[place] EDUCATION LEVEL OF EDUCATION:NOT FINISHED COLLEGE LEARNING BARRIERS / SPECIAL NEEDS CHANGE FROM LAST VISIT?NO BARRIERS TO LEARNING?NO HEARING IMPAIRED?NO VISION IMPAIRED?YES :CORRECTIVE LENSES READING COGNITIVELY IMPAIRED?NO READINESS TO LEARN?YES LEARNING PREFERENCES?NO LEARNING CAPABILITIES PRESENT?YES EMOTIONAL BARRIERS?NO SPECIAL DEVICES?NO STEEL ROD BUSTER NEEDED?NO DOMESTIC VIOLENCE DO YOU FEEL SAFE IN YOUR ENVIRONMENT?YES DIET: REGULAR. EXERCISE: WALKS. MARITAL STATUS: . - PFS REFERRAL NEEDED?NO CLERGY REFERRAL NEEDED?NO PUBLIC HEALTH REFERRAL NEEDED?NO WAS THE PROVIDER NOTIFIED OF ANY PERTINENT INFO?YES N/A HAS THE PATIENT BEEN EDUCATED REGARDING HIS/HER PLAN OF CARE?YES HAS THE PATIENT BEEN EDUCATED REGARDING PAIN, THE RISK FOR PAIN, THE IMPORTANCE OF EFFECTIVE PAIN MANAGEMENT, AND THE PAIN ASSESSMENT PROCESS?YES ADVANCE DIRECTIVE ADVANCE DIRECTIVE DISCUSSED WITH PATIENT:YES HEALTH CARE PROXY DAUGHTER MAIDA REDDY [phone] ALSO HAS POA AND LIVING WILL REVIEW OF SYSTEMS CONSTITUTIONAL: ANY RECENT FEVER NO . CHILLS NO . WEIGHT CHANGE OF UNKNOWN REASONS NO . GASTROENTEROLOGY: NEW UNEXPLAINABLE CHANGES IN BOWEL CONTROL NO . CONSTIPATION NO . GENITOURINARY: ANY NEW CHANGE IN BLADDER CONTROL? NO . NEUROLOGY: NEW ONSET DIZZINESS OR NEUROLOGICAL CHANGES NOT MENTIONED NO . NEW NUMBNESS OR PAIN PATTERNS NOT MENTIONED AND PERTINENT TO TODAY'S VISIT NO . CARDIOLOGY: NEW CHEST PRESSURE NO . PATIENT DENIES NO . RESPIRATORY: UNEXPLAINABLE COUGH NO . NEW SHORTNESS OF BREATH NO . VITAL SIGNS WT 206.6 LBS, HT 66 IN, BMI 33.34 INDEX, BP 157/70 MM HG, HR 90 /MIN, RR 18 /MIN, TEMP 97.0 F, OXYGEN SAT % 97%, SAFE IN ENV? (Y/N) YES, NA INITIALS AW 1441T.JANIS CASTELLON. EXAMINATION GENERAL EXAMINATION: GENERAL UNCOMFORTABLE . NECK: LIMITED EXTENSION, LIMITED FLEXION . LUNGS: LUNG LOVING ARE CLEAR TO AUSCULTATION BILATERALLY. GOOD MOVEMENT OF AIR . HEART: S1, S2 IN A REGULAR RATE AND RHYTHM. NO SIGNIFICANT MURMURS, RUBS OR GALLOPS NOTED . MUSCULOSKELETAL:TRIGGER POINTS ELICITED OVER RIGHT SHOULDER . CERVICAL:SPECIFIC TRIGGER POINTS OVER R NECK/RHOMBOID REGION, RIGHT GREATER THAN LEFT..PAIN IS AGGREVATED IN THIS REGION WITH ROJM NECK AND RIGHT ARM. ASSESSMENTS MYALGIA, OTHER SITE - M79.18 (PRIMARY) TREATMENT MYALGIA, OTHER SITE NOTES: TRIGGER POINT INJECTIONS BILATERAL NECK,BILATERAL SHOULDERS,BILATERAL THORACIC PRINTED AND REVIEWED PRE PROCEDURE INFORMATION, PATIENT VERBALIZED UNDERSTANDING LISHA JETER PROCEDURE CODES [id number] ESTABILISHED PATIENT [facility] FACILITY CHARGE DISPOSITION & COMMUNICATION FOLLOW UP POST (REASON: TRIGGER POINT INJECTIONS BILATERAL NECK,BILATERAL SHOULDERS,BILATERAL THORACIC) ELECTRONICALLY SIGNED BY TAMI CORTEZ ON 08/25/2020 AT 02:38 PM EDT DISCLAIMER : THIS IS A VISIT SUMMARY EXTRACTED FROM THE [employer] CHART. IT IS NOT A COPY OF THE [facility]. MTDD
== END ==
LOC: M PAIN 14:15
PROVIDERS: ATTEND Nurse Practitioner Family
DX: M79.18 Myalgia, other site (principal); G43.909 Migraine, unspecified, not intractable, without status migrainosus; Z88.0 Allergy status to penicillin; Z79.899 Other long term (current) drug therapy

== ENCOUNTER → 2020-09-06 | Outpatient (CLI) | payer MEDICARE ==
--- NOTE | 2020-09-08 01:46 | ECWPNPC ---
PATIENT NAME: BREEZY REDDY : 1960 GENDER: FEMALE VISIT DATE: 09/06/2020 DISCHARGE DATE: 09/06/20927 VISIT LOCKED DATE TIME: PHYSICIAN: NICHOLAS SAINI PHYSICIAN PAGER NO: ACTIVE RESOURCE: NICHOLAS SAINI REASON FOR APPOINTMENT 1. NBP-NECK PAIN HISTORY OF PRESENT ILLNESS GENERAL: 60-YEAR-OLD FEMALE KNOWN TO OUR PRACTICE IS HERE TODAY TO EVALUATE RIGHT LOW BACK PAIN PER REFERRAL OF PRIMARY CARE AT [facility]. NOTICED THIS ABOUT ONE YEAR AGO WITHOUT PRECIPITATING EVENT. HAS FAILED CONSERVATIVE CARE TO INCLUDE PHYSICAL THERAPY, IBUPROFEN, GABAPENTIN AND TIZANIDINE. CONTINUES WITH HOME EXERCISE AND STRETCHING WITHOUT IMPROVEMENT. X-RAYS OF THE LUMBAR SPINE ARE REVIEWED. PAIN IS AGGRAVATED BY SITTING OR LAYING DOWN TOO LONG. PAIN IS RELIEVED WITH WALKING. DENIES CHANGES IN BOWEL OR BLADDER FUNCTION. DENIES RECENT ILLNESS OR WEIGHT LOSS. PATIENT IS VERY ACTIVE AND WALKS DAILY. -. FALL RISK SCREENING: SCREENING : NO FALLS REPORTED IN THE LAST YEAR. PAIN SCREENING: PATIENT HAS A COMPLAINT OF ACUTE OR CHRONIC PAIN :YES LOCATION OF PAIN:LOW BACK INTENSITY OF PAIN (SCALE OF 1 TO 10):10 WHAT DOES YOUR PAIN FEEL LIKE:CONTINOUS, THROBBING, SHOOTING DURATION:CONTINOUS, CONSTANT, ALL DAY PAIN IS INCREASED BY:ACTIVITIES SITTING OR LAYING DOWN TO LONG PAIN IS DECREASED BY:OTHERS HEAT/ICE AND CREAM NURSING NOTE: -. PAIN CENTER INTAKE QUESTIONS: DO YOU HAVE A HISTORY OF MRSA? :NO DO YOU TAKE A BLOOD THINNERS? :NO DO YOU HAVE ANY BLEEDING DISORDERS? :NO ANY NEW NUMBNESS OR WEAKNESS IN YOUR LEGS OR ARMS? :NO ANY PACEMAKER,DEFIBRILLATOR, OR DORSAL COLUMN STIMULATOR? :NO DO YOU HAVE ANY RASHES OR OPEN SORES? :NO ARE YOU ALLERGIC TO IV DYE? :NO ARE YOU DIABETIC? :NO ANY NEW PROBLEMS WITH YOUR MEDICATIONS? :NO HAVE YOU RECEIVED A VACCINE IN THE PAST 30 DAYS? :NO DO YOU PLAN TO RECEIVE A VACCINE IN THE NEXT 21 DAYS? :NO DO YOU NEED ANY PRESCRIPTION? :NO DO YOU TAKE ANY IMMUNOSUPPRESSIVE MEDICATIONS? :NO IS THERE A CHANCE YOU COULD BE ? :NO ARE YOU BREAST FEEDING? :NO CURRENT MEDICATIONS TAKING ZOLPIDEM TARTRATE 5 MG TABLET 1 TABLET AT BEDTIME NEEDED ORALLY ONCE A DAY TAKING MULTIVITAMIN 1 CAP(S) ORALLY DAILY TAKING IBUPROFEN 800 MG TABLET 1 TABLET WITH FOOD ORALLY THREE TIMES A DAY FOR PAIN TAKING AMITRIPTYLINE HCL 50 MG TABLET 1 TABLET ORALLY EVERY 8 HRS NEEDED FOR PAIN MDD2 TAKING GABAPENTIN 300 MG CAPSULE 1 CAPSULE ORALLY BEFORE BEDTIME FOR PAIN TAKING BIOFREEZE ROLL-ON TAKING TIZANIDINE HCL 4 MG TABLET 1-1 1/2 TAB ORALLY Q8H PRN TAKING ROSUVASTATIN CALCIUM 10 MG TABLET 1 TABLET ORALLY ONCE A DAY TAKING METOPROLOL SUCCINATE ER 50 MG TABLET EXTENDED RELEASE 24 HOUR 1 TABLET ORALLY ONCE A DAY NOT-TAKING LIDOCAINE HCL 2 % GEL 1 APPLICATION NEEDED EXTERNALLY NEEDED FOR PAIN (30 GMS TUBE) THREE TIMES A DAY NOT-TAKING DICLOFENAC SODIUM 3 % GEL 1 APPLICATION TRANSDERMAL TWICE A DAY, NOTES: DOES NOT HAVE INSURANCE DENIED MEDICATION LIST REVIEWED AND RECONCILED WITH THE PATIENT PAST MEDICAL HISTORY MIGRAINES CERVICAL DISC DISORDER WITH RADICULOPATHY OF CERVICOTHORACIC REGION MYALGIA OSTEOARTHRTIS ARTHRITIS LOWER BACK PAIN HAS ALL OF HER COVID SHOT ALLERGIES PENICILLIN (FOR ALLERGIES USE ONLY): RASH - ALLERGY SURGICAL HISTORY SURGURIES TO BOTH KNEES (ACL AND SCOPES) SURGURY TO RIGHT SHOULDER -ROTATOR CUFF AND REPAIR 2003 SURGURY TO NECK 2003 SOCIAL HISTORY GENERAL: TOBACCO USE ARE YOU A: NONSMOKER. LATEX QUESTIONNAIRE LATEX ALLERGY : HAVE YOU EVER DEVELOPED ANY TYPE OF REACTION AFTER HANDLING LATEX PRODUCTS SUCH RUBBER GLOVES, CONDOMS, DIAPHRAGMS, BALLOONS, SOCKS, OR UNDERWEAR?NO LATEX ALLERGY : HAVE YOU EVER DEVELOPED ANY TYPE OF REACTION DURING OR AFTER DENTAL APPOINTMENT, VAGINAL/RECTAL EXAMINATION, SURGICAL PROCEDURE, OR ANY OTHER EXPOSURE?NO LATEX RISK : HAVE YOU EVER HAD ANY DIFFICULTY BREATHING OR HIVES AFTER EATING OR HANDLING ANY FRUITS, OR VEGETABLES; SUCH KIWI, BANANAS, STONE FRUITS, OR CHESTNUTSNO LATEX RISK : DO YOU HAVE A PREVIOUS PERSONAL HISTORY OF MORE THAN NINE SURGERIES, SPINA BIFIDA, OR REPEATED CATHERIZATIONS? NO LATEX RISK : ARE YOU FREQUENTLY EXPOSED TO LATEX PRODUCTS IN YOUR OCCUPATION?NO DATE ASKED : 09/06/2020 ALCOHOL USE: YES. ALCOHOL SCREENING DID YOU HAVE A DRINK CONTAINING ALCOHOL IN THE PAST YEAR?NO POINTS0 INTERPRETATIONNEGATIVE RECREATIONAL DRUG USE DRUG USE?NO CAFFEINE CAFFEINE USE?YES HOW OFTEN AND HOW MUCH? ONCE A [employer] [id number] OTHER LANGUAGE LANGUAGES SPOKEN:FAROESE EDUCATION LEVEL OF EDUCATION:NOT FINISHED COLLEGE LEARNING BARRIERS / SPECIAL NEEDS CHANGE FROM LAST VISIT?NO BARRIERS TO LEARNING?NO HEARING IMPAIRED?NO VISION IMPAIRED?YES :CORRECTIVE LENSES READING COGNITIVELY IMPAIRED?NO READINESS TO LEARN?YES LEARNING PREFERENCES?NO LEARNING CAPABILITIES PRESENT?YES EMOTIONAL BARRIERS?NO SPECIAL DEVICES?NO HEALTH SOCIAL WORK PROFESSOR NEEDED?NO DOMESTIC VIOLENCE DO YOU FEEL SAFE IN YOUR ENVIRONMENT?YES DIET: REGULAR. EXERCISE: WALKS. MARITAL STATUS: . - PFS REFERRAL NEEDED?NO CLERGY REFERRAL NEEDED?NO PUBLIC HEALTH REFERRAL NEEDED?NO WAS THE PROVIDER NOTIFIED OF ANY PERTINENT INFO?YES N/A HAS THE PATIENT BEEN EDUCATED REGARDING HIS/HER PLAN OF CARE?YES HAS THE PATIENT BEEN EDUCATED REGARDING PAIN, THE RISK FOR PAIN, THE IMPORTANCE OF EFFECTIVE PAIN MANAGEMENT, AND THE PAIN ASSESSMENT PROCESS?YES ADVANCE DIRECTIVE ADVANCE DIRECTIVE DISCUSSED WITH PATIENT:YES HEALTH CARE PROXY DAUGHTER MAIDA REDDY [phone] ALSO HAS POA AND LIVING WILL HOSPITALIZATION/MAJOR DIAGNOSTIC PROCEDURE SURGERY RELATED CHILD REVIEW OF SYSTEMS CONSTITUTIONAL: ANY RECENT FEVER NO . CHILLS NO . WEIGHT CHANGE OF UNKNOWN REASONS NO . GASTROENTEROLOGY: NEW UNEXPLAINABLE CHANGES IN BOWEL CONTROL NO . CONSTIPATION NO . GENITOURINARY: ANY NEW CHANGE IN BLADDER CONTROL? NO . NEUROLOGY: NEW ONSET DIZZINESS OR NEUROLOGICAL CHANGES NOT MENTIONED NO . NEW NUMBNESS OR PAIN PATTERNS NOT MENTIONED AND PERTINENT TO TODAY'S VISIT NO . CARDIOLOGY: NEW CHEST PRESSURE NO . PATIENT DENIES NO . RESPIRATORY: UNEXPLAINABLE COUGH NO . NEW SHORTNESS OF BREATH NO . VITAL SIGNS WT 204.6 LBS, HT 66 IN, BMI 33.02 INDEX, BP 162/97 MM HG, REPEAT BP 136/88 MM HG, HR 57 /MIN, RR 18 /MIN, TEMP 97.6 F, OXYGEN SAT % 98%, SAFE IN ENV? (Y/N) YES, NA INITIALS AW 0849T.JANIS CASTELLON. EXAMINATION GENERAL EXAMINATION: GENERALNO ACUTE DISTRESS, WELL NOURISHED AND HYDRATED. PSYCHAPPROPRIATE MOOD AND AFFECT . NECK:NO LYMPHADENOPATHY, SUPPLE. LUNGS:CLEAR TO AUSCULTATION BILATERALLY, NO WHEEZES, RHONCHI, RALES. HEART:NO MURMURS, REGULAR RATE AND RHYTHM. MUSCULOSKELETAL: TRIGGER POINTS: ELICITED WITH PALPATION OVER RIGHT LUMBAR PARAVERTEBRAL MUSCLES.PAIN IS AGGREVATED IN THIS AREA WITH ROJM OF SPINE.. LUMBAR:TENDERNESS NOTED OVER RIGHT SIJ . DIAGNOSTIC TESTS REVIEWED XRAY L/S SPINE 12/31/2019. ASSESSMENTS MYALGIA, OTHER SITE - M79.18 (PRIMARY) SACROILIITIS - M46.1 TREATMENT MYALGIA, OTHER SITE START LIDOCAINE HCL GEL, 2 %, 1 APPLICATION NEEDED, EXTERNALLY, THREE TIMES A DAY, 30 DAYS, 1, REFILLS 2 [facility] MRI SPINE, L.S. WITHOUT [id number],ANSHUL 09/06/2020 1:49:13 PM > NO AUTH REQUIRED FOR [facility] MEDICARE COMPLETE SACROILIITIS [facility] MRI SPINE, L.S. WITHOUT [id number],ANSHUL 09/06/2020 1:49:13 PM > NO AUTH REQUIRED FOR [facility] MEDICARE COMPLETE PROCEDURE CODES FA211 ESTABILISHED PATIENT [facility] FACILITY CHARGE DISPOSITION & COMMUNICATION FOLLOW UP WE WILL SEE HER AT POST PROCEDURE FOLLOW-UP FOR TRIGGER POINTS THAT IS SCHEDULED AND WE'LL REVIEW MRI OF LUMBAR SPINE (REASON: MRI REVIEW) ELECTRONICALLY SIGNED BY TAMI CORTEZ ON 09/07/2020 AT 10:10 AM EDT DISCLAIMER : THIS IS A VISIT SUMMARY EXTRACTED FROM THE [employer] CHART. IT IS NOT A COPY OF THE [employer] PROGRESS NOTE. ANDREW
== END ==
LOC: M PAIN 08:30
PROVIDERS: ATTEND Nurse Practitioner Family
DX: M79.18 Myalgia, other site (principal); M46.1 Sacroiliitis, not elsewhere classified; G43.909 Migraine, unspecified, not intractable, without status migrainosus; M50.10 Cervical disc disorder with radiculopathy, unspecified cervical region; M54.5 Low back pain; M19.90 Unspecified osteoarthritis, unspecified site; Z79.899 Other long term (current) drug therapy; Z88.0 Allergy status to penicillin

== ENCOUNTER → 2020-09-28 | Outpatient (CLI) | payer MEDICARE ==
[~2020-09-28] MED LIST changes: +BUPIVACAINE HCL 0.25% 10ML VIAL As Ordered ONE; +BUPIVACAINE HCL 0.25% 30ML VIAL As Ordered ONE; +TRIAMCINOLONE ACETONIDE SUSP 40 MG/ML VIAL (J3301) As Ordered ONE
--- NOTE | 2020-09-29 03:07 | ECWPNPC ---
PATIENT NAME: BREEZY REDDY : 1960 GENDER: FEMALE VISIT DATE: 09/28/2020 DISCHARGE DATE: 09/28/20 0937 VISIT LOCKED DATE TIME: PHYSICIAN: LATIA LOPEZ MD PHYSICIAN PAGER NO: ACTIVE RESOURCE: LATIA LOPEZ MD REASON FOR APPOINTMENT 1. TRIGGER POINT INJECTIONS BILATERAL NECK,BILATERAL SHOULDERS,BILATERAL THORACIC HISTORY OF PRESENT ILLNESS GENERAL: -. FALL RISK SCREENING: SCREENING : NO FALLS REPORTED IN THE LAST YEAR. PAIN SCREENING: PATIENT HAS A COMPLAINT OF ACUTE OR CHRONIC PAIN :YES LOCATION OF PAIN:NECK, RIGHT SHOULDER INTENSITY OF PAIN (SCALE OF 1 TO 10):10 WHAT DOES YOUR PAIN FEEL LIKE:ACHING, BURNING, SHARP, STABBING, THROBBING, SHOOTING DURATION:CONTINOUS, CONSTANT PAIN IS INCREASED BY:ACTIVITIES PAIN IS DECREASED BY:USE OF PAIN MEDICATIONS NURSING NOTE: -. PAIN CENTER INTAKE QUESTIONS: DO YOU HAVE A HISTORY OF MRSA? :NO DO YOU TAKE A BLOOD THINNERS? :NO DO YOU HAVE ANY BLEEDING DISORDERS? :NO ANY NEW NUMBNESS OR WEAKNESS IN YOUR LEGS OR ARMS? :NO ANY PACEMAKER,DEFIBRILLATOR, OR DORSAL COLUMN STIMULATOR? :NO DO YOU HAVE ANY RASHES OR OPEN SORES? :NO ARE YOU ALLERGIC TO IV DYE? :NO ARE YOU DIABETIC? :NO ANY NEW PROBLEMS WITH YOUR MEDICATIONS? :NO HAVE YOU RECEIVED A VACCINE IN THE PAST 30 DAYS? :NO DO YOU PLAN TO RECEIVE A VACCINE IN THE NEXT 21 DAYS? :NO DO YOU TAKE ANY IMMUNOSUPPRESSIVE MEDICATIONS? :NO ANY HISTORY OF SEIZURES? :NO ANY HISTORY OF CARDIAC ISSUES OR EVENTS? :NO DO YOU HAVE ANY KIDNEY OR LIVER DISEASE? :NO DO YOU HAVE SLEEP APNEA? :NO ANY RECENT HEAD INJURY? :NO DO YOU HAVE ANY NEW INFECTIONS? :NO IS THERE A CHANCE YOU COULD BE ? :NO ARE YOU BREAST FEEDING? :NO WHEN DID YOU LAST EAT? : -09/27/20@ 1930 WHEN DID YOU LAST DRINK? : -629 TODAY WHAT DID YOU LAST DRINK? : -WATER NAME OF PERSON DRIVING YOU HOME? : SHELBY DO YOU HAVE ANY OTHER QUESTIONS OR CONCERNS? : -DENIES CURRENT MEDICATIONS TAKING ZOLPIDEM TARTRATE 5 MG TABLET 1 TABLET AT BEDTIME NEEDED ORALLY ONCE A DAY TAKING MULTIVITAMIN 1 CAP(S) ORALLY DAILY TAKING AMITRIPTYLINE HCL 50 MG TABLET 1 TABLET ORALLY EVERY 8 HRS NEEDED FOR PAIN MDD2 TAKING BIOFREEZE ROLL-ON TAKING TIZANIDINE HCL 4 MG TABLET 1-1 1/2 TAB ORALLY Q8H PRN TAKING ROSUVASTATIN CALCIUM 10 MG TABLET 1 TABLET ORALLY ONCE A DAY TAKING METOPROLOL SUCCINATE ER 50 MG TABLET EXTENDED RELEASE 24 HOUR 1 TABLET ORALLY ONCE A DAY TAKING LIDOCAINE HCL 2 % GEL 1 APPLICATION NEEDED EXTERNALLY THREE TIMES A DAY TAKING IBUPROFEN 800 MG TABLET 1 TABLET WITH FOOD ORALLY THREE TIMES A DAY FOR PAIN TAKING GABAPENTIN 300 MG CAPSULE 1 CAPSULE ORALLY BEFORE BEDTIME FOR PAIN NOT-TAKING LIDOCAINE HCL 2 % GEL 1 APPLICATION NEEDED EXTERNALLY NEEDED FOR PAIN (30 GMS TUBE) THREE TIMES A DAY NOT-TAKING DICLOFENAC SODIUM 3 % GEL 1 APPLICATION TRANSDERMAL TWICE A DAY, NOTES: DOES NOT HAVE INSURANCE DENIED PAST MEDICAL HISTORY MIGRAINES CERVICAL DISC DISORDER WITH RADICULOPATHY OF CERVICOTHORACIC REGION MYALGIA OSTEOARTHRTIS ARTHRITIS LOWER BACK PAIN HAS ALL OF HER COVID SHOT ALLERGIES PENICILLIN (FOR ALLERGIES USE ONLY): RASH - ALLERGY SOCIAL HISTORY GENERAL: TOBACCO USE ARE YOU A: NONSMOKER. LATEX QUESTIONNAIRE LATEX ALLERGY : HAVE YOU EVER DEVELOPED ANY TYPE OF REACTION AFTER HANDLING LATEX PRODUCTS SUCH RUBBER GLOVES, CONDOMS, DIAPHRAGMS, BALLOONS, SOCKS, OR UNDERWEAR?NO LATEX ALLERGY : HAVE YOU EVER DEVELOPED ANY TYPE OF REACTION DURING OR AFTER DENTAL APPOINTMENT, VAGINAL/RECTAL EXAMINATION, SURGICAL PROCEDURE, OR ANY OTHER EXPOSURE?NO DATE ASKED : 09/06/2020 LATEX RISK : HAVE YOU EVER HAD ANY DIFFICULTY BREATHING OR HIVES AFTER EATING OR HANDLING ANY FRUITS, OR VEGETABLES; SUCH KIWI, BANANAS, STONE FRUITS, OR CHESTNUTSNO LATEX RISK : DO YOU HAVE A PREVIOUS PERSONAL HISTORY OF MORE THAN NINE SURGERIES, SPINA BIFIDA, OR REPEATED CATHERIZATIONS? NO LATEX RISK : ARE YOU FREQUENTLY EXPOSED TO LATEX PRODUCTS IN YOUR OCCUPATION?NO ALCOHOL USE: YES. ALCOHOL SCREENING DID YOU HAVE A DRINK CONTAINING ALCOHOL IN THE PAST YEAR?NO POINTS0 INTERPRETATIONNEGATIVE RECREATIONAL DRUG USE DRUG USE?NO CAFFEINE CAFFEINE USE?YES HOW OFTEN AND HOW MUCH? ONCE A [employer] [id number] OTHER LANGUAGE LANGUAGES SPOKEN:YEMENI EDUCATION LEVEL OF EDUCATION:NOT FINISHED COLLEGE LEARNING BARRIERS / SPECIAL NEEDS CHANGE FROM LAST VISIT?NO BARRIERS TO LEARNING?NO HEARING IMPAIRED?NO VISION IMPAIRED?YES COGNITIVELY IMPAIRED?NO :CORRECTIVE LENSES READING READINESS TO LEARN?YES LEARNING PREFERENCES?NO LEARNING CAPABILITIES PRESENT?YES EMOTIONAL BARRIERS?NO SPECIAL DEVICES?NO DATA ARCHITECT NEEDED?NO DOMESTIC VIOLENCE DO YOU FEEL SAFE IN YOUR ENVIRONMENT?YES DIET: REGULAR. EXERCISE: WALKS. MARITAL STATUS: . - PFS REFERRAL NEEDED?NO CLERGY REFERRAL NEEDED?NO PUBLIC HEALTH REFERRAL NEEDED?NO WAS THE PROVIDER NOTIFIED OF ANY PERTINENT INFO?YES N/A HAS THE PATIENT BEEN EDUCATED REGARDING HIS/HER PLAN OF CARE?YES HAS THE PATIENT BEEN EDUCATED REGARDING PAIN, THE RISK FOR PAIN, THE IMPORTANCE OF EFFECTIVE PAIN MANAGEMENT, AND THE PAIN ASSESSMENT PROCESS?YES ADVANCE DIRECTIVE ADVANCE DIRECTIVE DISCUSSED WITH PATIENT:YES HEALTH CARE PROXY DAUGHTER MAIDA REDDY [phone] ALSO HAS POA AND LIVING WILL VITAL SIGNS WT 203.8 LBS, HT 66 IN, BMI 32.89 INDEX, BP 144/83 MM HG, HR 74 /MIN, RR 18 /MIN, TEMP 97.1 F, OXYGEN SAT % 97%, SAFE IN ENV? (Y/N) Y, NA INITIALS AW 0833, REVIEWED BY: BERT. EXAMINATION GENERAL: THE PATIENT IS ALERT, ORIENTED TIMES THREE AND COOPERATIVE. LUNGS ARE CLEAR TO AUSCULTATION. HEART SHOWS REGULAR RHYTHM, NO MURMURS AND NO GALLOPS. ASSESSMENTS MYALGIA, UNSPECIFIED SITE - M79.10 (PRIMARY) TREATMENT MYALGIA, UNSPECIFIED SITE COMPLETION OF PROCEDURAL VISIT WHEN MEETS CRITERIABENTLEY MARK 09/28/2020 9:40:42 AM > CRITERIA MET @ 0936 OTHERS NOTES: PAT DONE 09/23/20, EM. PROCEDURES PAIN NURSING RECORD PROCEDURE IN ROOM 0840, PHYSICIAN IN ROOM 0922, START 0928, FINISH 0930, PHYSICIAN OUT OF ROOM 0930, OUT OF ROOM 0936, ECG NORMAL SINUS, PATIENT SHIELDED YES, SAFETY STRAP YES, PREP ALCOHOL Cynthia MARK RN, DRESSING TEGADERM Cynthia MARK RN LOC: 1. ALERT, ORIENTED RESP: 1. REGULAR, NO DYSPNEA COLOR: 1. PINK SKIN: 1. WARM, DRY POSITION: 5. SITTING VITALS: EXIT VITALS HR 69, 145/86, 97%, R14, PAIN 0/10JAS TOM 09/28/2020 9:39:26 AM > GISELA MARK RN COMPLETION OF PROCEDURE APPOINTMENT: POST PAIN 0, DRESSING SITE DRY AND INTACT, IV N/A, GAIT STEADY, TEACHING COMPLETED, PATIENT ACKNOWLEDGES UNDERSTANDING YES, PROCEDURE APPOINTMENT COMPLETED AT 0936 PN TRIGGER POINT INJECTION WITH STEROIDS PRE PROCEDURE DIAGNOSIS 1. MYALGIA 2. PAIN AT BILATERAL NECK AREA AND RIGHT SHOULDER AREA POST PROCEDURE DIAGNOSIS 1. MYALGIA 2. PAIN AT BILATERAL NECK AREA AND RIGHT SHOULDER AREA PROCEDURE TRIGGER POINT INJECTION AT BILATERAL NECK AREA AND RIGHT SHOULDER AREA SURGEON DR. LATIA LOPEZ SENIOR CARE ASSISTANT NONE ANESTHESIA LOCAL PRE PROCEDURE NOTE THE PATIENT HAS A HISTORY OF CHRONIC PAIN AT THE RIGHT AND LEFT NECK AREA AND RIGHT SHOULDER AREA. I EVALUATED THE PATIENT AND REVIEWED THE CHART. THERE IS EVIDENCE OF BANDS OF TISSUE WITH RESTRICTION OF MOVEMENT AND PRESENCE OF TRIGGER POINT AT THE RIGHT AND LEFT NECK AREA AND RIGHT SHOULDER AREA. I WENT OVER THE RISKS, ALTERNATIVES, AND BENEFITS ASSOCIATED WITH THIS PROCEDURE. THE PATIENT WOULD LIKE TO PROCEED AND GIVE CONSENT TO PERFORMED THE PROCEDURE. THE PATIENT DENIES UNEXPLAINABLE WEIGHT LOSS, FEVER, CHILLS, OR NEW CHANGES IN URINARY OR BOWEL CONTROL. THE PATIENT IS COVID-19 NEGATRIVE DESCRIPTION OF PROCEDURE THE PATIENT WAS BROUGHT TO THE PROCEDURE ROOM AND PLACED IN THE SITTING POSITION. THE AREA WAS CLEANED WITH ALCOHOL. THE PROCEDURE WAS DONE USING ASEPTIC STERILE TECHNIQUE. A TIMEOUT WAS PERFORMED WHERE THE CONSENTED SITE WAS VERIFIED WITH EVERYONE IN THE ROOM. USING A 25-GAUGE NEEDLE, TRIGGER POINTS WERE INJECTED AT THE RIGHT AND LEFT NECK AREA AND RIGHT SHOULDER AREA WITH A TOTAL OF 40 ML OF BUPIVACAINE 0.25% AND KENALOG 40 MG. THE MEDICATIONS WERE VERIFIED WITH THE NURSE. THERE WAS NO EVIDENCE OF BLOOD OR PARESTHESIA DURING THE PROCEDURE. THE PATIENT WAS SENT TO THE RECOVERY ROOM. THE PATIENT WAS MOVING THE EXTREMITIES AND DOING WELL. THERE WERE NO COMPLICATIONS DURING THE PROCEDURE. ESTIMATED BLOOD LOSS WAS LESS THAN 5 ML POST PROCEDURE NOTE THE PROCEDURE DONE WAS DISCUSSED WITH THE PATIENT. THE PATIENT WILL BE SEEN IN A FOLLOW UP IN THE NEXT FEW WEEKS. I AM LOOKING FOR LONG LASTING PAIN RELIEF FOR THE PATIENT WITH THIS INTERVENTION. INSTRUCTIONS WERE GIVEN, QUESTIONS WERE ANSWERED, AND THE PATIENT EXPRESSED UNDERSTANDING AND AGREES WITH THE PLAN. I, DEA MENEZES, DOCUMENTED THE ABOVE INFORMATION ACTING A SCRIBE FOR DR. LOPEZ. I HAVE REVIEWED THE ABOVE DOCUMENT, WRITTEN BY DEA MENEZES, CLASS B DRIVER, AND I VERIFY THAT IT IS ACCURATE PROCEDURE CODES 52904 INJECT TRIGGER POINTS 3/> DISPOSITION & COMMUNICATION FOLLOW UP FOLLOW UP IN 2 WEEKS (REASON: POST TRIGGER POINT INJECTION BILATERAL NECK AND RIGHT SHOULDER) ELECTRONICALLY SIGNED BY LATIA LOPEZ MD, MD ON 09/28/2020 AT 12:35 PM EDT DISCLAIMER : THIS IS A VISIT SUMMARY EXTRACTED FROM THE [employer] CHART. IT IS NOT A COPY OF THE [employer] PROGRESS NOTE. ANDREW
== END ==
LOC: M PAIN 08:30
PROVIDERS: ATTEND Anesthesiology
DX: M79.18 Myalgia, other site (principal); G43.909 Migraine, unspecified, not intractable, without status migrainosus; Z88.0 Allergy status to penicillin; Z79.899 Other long term (current) drug therapy
CPT/HCPCS: 20553; J3301

== ENCOUNTER → 2020-10-12 | Outpatient (CLI) | payer MEDICARE ==
[~2020-10-12] MED LIST changes: -BUPIVACAINE HCL 0.25% 10ML VIAL As Ordered ONE; -BUPIVACAINE HCL 0.25% 30ML VIAL As Ordered ONE; -TRIAMCINOLONE ACETONIDE SUSP 40 MG/ML VIAL (J3301) As Ordered ONE
--- NOTE | 2020-10-14 02:47 | ECWPNPC ---
PATIENT NAME: BREEZY REDDY : 1960 GENDER: FEMALE VISIT DATE: 10/12/2020 DISCHARGE DATE: 10/12/20 1508 VISIT LOCKED DATE TIME: PHYSICIAN: NICHOLAS SAINI PHYSICIAN PAGER NO: ACTIVE RESOURCE: NICHOLAS SAINI REASON FOR APPOINTMENT 1. POST TRIGGER POINT INJECTIONS BILATERAL NECK,BILATERAL SHOULDERS,BILATERAL THORACIC HISTORY OF PRESENT ILLNESS DEPRESSION SCREENING: PHQ-2 (2015 EDITION) LITTLE INTEREST OR PLEASURE IN DOING THINGS?NOT AT ALL FEELING DOWN, DEPRESSED, OR HOPELESS?NOT AT ALL TOTAL SCORE0 GENERAL: HERE FOR FOLLOW-UP OF CHRONIC NECK AND LOW BACK PAIN. HAD TRIGGER POINT INJECTIONS BILATERAL NECK, BILATERAL SHOULDERS AND BILATERAL THORACIC AREA ON 09/28/2020. THAT REGION OF PAIN IS SIGNIFICANTLY IMPROVED POST PROCEDURE. REPORTING IMPROVED ACTIVITY TOLERANCE SINCE PROCEDURE. CHIEF AREA OF PAIN IS RIGHT LOW BACK. PAIN IN THAT AREA IS AGGRAVATED WITH RANGE OF JOINT MOTION OF THE SPINE. MRI OF THE LS SPINE IS REVIEWED WITH PATIENT. DISCUSSED TREATMENT PLAN. -. FALL RISK SCREENING: SCREENING : NO FALLS REPORTED IN THE LAST YEAR. PAIN SCREENING: PATIENT HAS A COMPLAINT OF ACUTE OR CHRONIC PAIN :YES INTENSITY OF PAIN (SCALE OF 1 TO 10):2 WHAT DOES YOUR PAIN FEEL LIKE:ACHING, CONTINOUS DURATION:CONTINOUS, CONSTANT, ALL DAY PAIN IS INCREASED BY:ACTIVITIES PAIN IS DECREASED BY:OTHERS RESTING NURSING NOTE: -. PAIN CENTER INTAKE QUESTIONS: DO YOU HAVE A HISTORY OF MRSA? :NO DO YOU TAKE A BLOOD THINNERS? :NO DO YOU HAVE ANY BLEEDING DISORDERS? :NO ANY NEW NUMBNESS OR WEAKNESS IN YOUR LEGS OR ARMS? :NO ANY PACEMAKER,DEFIBRILLATOR, OR DORSAL COLUMN STIMULATOR? :NO DO YOU HAVE ANY RASHES OR OPEN SORES? :NO ARE YOU ALLERGIC TO IV DYE? :NO ARE YOU DIABETIC? :NO ANY NEW PROBLEMS WITH YOUR MEDICATIONS? :NO HAVE YOU RECEIVED A VACCINE IN THE PAST 30 DAYS? :YES TINNET SHOT 10/12/2020 DO YOU PLAN TO RECEIVE A VACCINE IN THE NEXT 21 DAYS? :NO DO YOU NEED ANY PRESCRIPTION? :NO DO YOU TAKE ANY IMMUNOSUPPRESSIVE MEDICATIONS? :NO IS THERE A CHANCE YOU COULD BE ? :NO ARE YOU BREAST FEEDING? :NO CURRENT MEDICATIONS TAKING ZOLPIDEM TARTRATE 5 MG TABLET 1 TABLET AT BEDTIME NEEDED ORALLY ONCE A DAY TAKING MULTIVITAMIN 1 CAP(S) ORALLY DAILY TAKING AMITRIPTYLINE HCL 50 MG TABLET 1 TABLET ORALLY EVERY 8 HRS NEEDED FOR PAIN MDD2 TAKING BIOFREEZE ROLL-ON TAKING TIZANIDINE HCL 4 MG TABLET 1-1 1/2 TAB ORALLY Q8H PRN TAKING ROSUVASTATIN CALCIUM 10 MG TABLET 1 TABLET ORALLY ONCE A DAY TAKING METOPROLOL SUCCINATE ER 50 MG TABLET EXTENDED RELEASE 24 HOUR 1 TABLET ORALLY ONCE A DAY TAKING LIDOCAINE HCL 2 % GEL 1 APPLICATION NEEDED EXTERNALLY THREE TIMES A DAY TAKING IBUPROFEN 800 MG TABLET 1 TABLET WITH FOOD ORALLY THREE TIMES A DAY FOR PAIN TAKING GABAPENTIN 300 MG CAPSULE 1 CAPSULE ORALLY BEFORE BEDTIME FOR PAIN NOT-TAKING LIDOCAINE HCL 2 % GEL 1 APPLICATION NEEDED EXTERNALLY NEEDED FOR PAIN (30 GMS TUBE) THREE TIMES A DAY NOT-TAKING DICLOFENAC SODIUM 3 % GEL 1 APPLICATION TRANSDERMAL TWICE A DAY, NOTES: DOES NOT HAVE INSURANCE DENIED MEDICATION LIST REVIEWED AND RECONCILED WITH THE PATIENT PAST MEDICAL HISTORY MIGRAINES CERVICAL DISC DISORDER WITH RADICULOPATHY OF CERVICOTHORACIC REGION MYALGIA OSTEOARTHRTIS ARTHRITIS LOWER BACK PAIN HAS ALL OF HER COVID SHOT ALLERGIES PENICILLIN (FOR ALLERGIES USE ONLY): RASH - ALLERGY SOCIAL HISTORY GENERAL: TOBACCO USE ARE YOU A: NONSMOKER. LATEX QUESTIONNAIRE LATEX ALLERGY : HAVE YOU EVER DEVELOPED ANY TYPE OF REACTION AFTER HANDLING LATEX PRODUCTS SUCH RUBBER GLOVES, CONDOMS, DIAPHRAGMS, BALLOONS, SOCKS, OR UNDERWEAR?NO LATEX ALLERGY : HAVE YOU EVER DEVELOPED ANY TYPE OF REACTION DURING OR AFTER DENTAL APPOINTMENT, VAGINAL/RECTAL EXAMINATION, SURGICAL PROCEDURE, OR ANY OTHER EXPOSURE?NO LATEX RISK : HAVE YOU EVER HAD ANY DIFFICULTY BREATHING OR HIVES AFTER EATING OR HANDLING ANY FRUITS, OR VEGETABLES; SUCH KIWI, BANANAS, STONE FRUITS, OR CHESTNUTSNO LATEX RISK : DO YOU HAVE A PREVIOUS PERSONAL HISTORY OF MORE THAN NINE SURGERIES, SPINA BIFIDA, OR REPEATED CATHERIZATIONS? NO LATEX RISK : ARE YOU FREQUENTLY EXPOSED TO LATEX PRODUCTS IN YOUR OCCUPATION?NO DATE ASKED : 10/12/2020 ALCOHOL USE: YES. ALCOHOL SCREENING DID YOU HAVE A DRINK CONTAINING ALCOHOL IN THE PAST YEAR?NO POINTS0 INTERPRETATIONNEGATIVE RECREATIONAL DRUG USE DRUG USE?NO CAFFEINE CAFFEINE USE?YES HOW OFTEN AND HOW MUCH? ONCE A [employer] [id number] OTHER LANGUAGE LANGUAGES SPOKEN:[place]HA[place] EDUCATION LEVEL OF EDUCATION:NOT FINISHED COLLEGE LEARNING BARRIERS / SPECIAL NEEDS CHANGE FROM LAST VISIT?NO BARRIERS TO LEARNING?NO HEARING IMPAIRED?NO VISION IMPAIRED?YES :CORRECTIVE LENSES READING COGNITIVELY IMPAIRED?NO READINESS TO LEARN?YES LEARNING PREFERENCES?NO LEARNING CAPABILITIES PRESENT?YES EMOTIONAL BARRIERS?NO SPECIAL DEVICES?NO DIRECTOR OF OPTIMIZATION NEEDED?NO DOMESTIC VIOLENCE DO YOU FEEL SAFE IN YOUR ENVIRONMENT?YES DIET: REGULAR. EXERCISE: WALKS. MARITAL STATUS: . - PFS REFERRAL NEEDED?NO CLERGY REFERRAL NEEDED?NO PUBLIC HEALTH REFERRAL NEEDED?NO WAS THE PROVIDER NOTIFIED OF ANY PERTINENT INFO?YES N/A HAS THE PATIENT BEEN EDUCATED REGARDING HIS/HER PLAN OF CARE?YES HAS THE PATIENT BEEN EDUCATED REGARDING PAIN, THE RISK FOR PAIN, THE IMPORTANCE OF EFFECTIVE PAIN MANAGEMENT, AND THE PAIN ASSESSMENT PROCESS?YES ADVANCE DIRECTIVE ADVANCE DIRECTIVE DISCUSSED WITH PATIENT:YES HEALTH CARE PROXY DAUGHTER MAIDA REDDY [phone] ALSO HAS POA AND LIVING WILL REVIEW OF SYSTEMS CONSTITUTIONAL: ANY RECENT FEVER NO . CHILLS NO . WEIGHT CHANGE OF UNKNOWN REASONS NO . GASTROENTEROLOGY: NEW UNEXPLAINABLE CHANGES IN BOWEL CONTROL NO . CONSTIPATION NO . GENITOURINARY: ANY NEW CHANGE IN BLADDER CONTROL? NO . NEUROLOGY: NEW ONSET DIZZINESS OR NEUROLOGICAL CHANGES NOT MENTIONED NO . NEW NUMBNESS OR PAIN PATTERNS NOT MENTIONED AND PERTINENT TO TODAY'S VISIT NO . CARDIOLOGY: NEW CHEST PRESSURE NO . PATIENT DENIES NO . RESPIRATORY: UNEXPLAINABLE COUGH NO . NEW SHORTNESS OF BREATH NO . VITAL SIGNS WT 203 LBS, HT 66 IN, BMI 32.76 INDEX, BP 132/92 MM HG, HR 71 /MIN, RR 18 /MIN, TEMP 97 F, OXYGEN SAT % 97%, SAFE IN ENV? (Y/N) YEST.JANIS CASTELLON. EXAMINATION GENERAL EXAMINATION: GENERALNO ACUTE DISTRESS, WELL NOURISHED AND HYDRATED. PSYCHAPPROPRIATE MOOD AND AFFECT . NECK:NO LYMPHADENOPATHY, SUPPLE. LUNGS:CLEAR TO AUSCULTATION BILATERALLY, NO WHEEZES, RHONCHI, RALES. HEART:NO MURMURS, REGULAR RATE AND RHYTHM. MUSCULOSKELETAL: TRIGGER POINTS: ELICITED WITH PALPATION OVER RIGHT LUMBAR PARAVERTEBRAL MUSCLES.PAIN IS AGGREVATED IN THIS AREA WITH ROJM OF SPINE.. DIAGNOSTIC TESTS REVIEWED XRAY L/S SPINE 12/31/2019. ASSESSMENTS MYALGIA, OTHER SITE - M79.18 (PRIMARY) OTHER CHRONIC PAIN - G89.29 TREATMENT MYALGIA, OTHER SITE NOTES: TRIGGER POINT INJECTIONS RIGHT LOW BACK REVIEWED PRE PROCEDURE INFORMATION, PATIENT VERBALIZED UNDERSTANDING LISHA CASTELLON. OTHER CHRONIC PAIN PAIN PROCEDURE LOGDATE OF PROCEDURE09/28/2020ROCEDURE:TRIGGER POINT INJECTION BILATERAL NECK, BILATERAL SHOULDERS, BILATERAL THORACICAMOUNT OF PRE SEDATE0/0RESULT:MARKED REDUCTION IN PAIN AND IMPROVED ROJM NECK CONTINUES TODAY PROCEDURE CODES [id number] ESTABILISHED PATIENT [facility] FACILITY CHARGE DISPOSITION & COMMUNICATION FOLLOW UP POST (REASON: TRIGGER POINT INJECTIONS RIGHT LOW BACK) ELECTRONICALLY SIGNED BY TAMI CORTEZ ON 10/13/2020 AT 01:26 PM EDT DISCLAIMER : THIS IS A VISIT SUMMARY EXTRACTED FROM THE [employer] CHART. IT IS NOT A COPY OF THE [employer] PROGRESS NOTE. ANDREW
== END ==
LOC: M PAIN 14:15
PROVIDERS: ATTEND Nurse Practitioner Family
DX: M79.18 Myalgia, other site (principal); G43.909 Migraine, unspecified, not intractable, without status migrainosus; Z88.0 Allergy status to penicillin; Z79.899 Other long term (current) drug therapy

== ENCOUNTER → 2020-11-16 | Outpatient (CLI) | payer MEDICARE ==
[~2020-11-16] MED LIST changes: +BUPIVACAINE HCL 0.25% 10ML VIAL As Ordered ONE; +BUPIVACAINE HCL 0.25% 30ML VIAL As Ordered ONE; +TRIAMCINOLONE ACETONIDE SUSP 40 MG/ML VIAL (J3301) As Ordered ONE
== END ==
LOC: M PAIN 08:30
PROVIDERS: ATTEND Anesthesiology
DX: M79.18 Myalgia, other site (principal); G43.909 Migraine, unspecified, not intractable, without status migrainosus; Z88.0 Allergy status to penicillin; Z79.899 Other long term (current) drug therapy
CPT/HCPCS: 20552; J3301

== ENCOUNTER → 2020-12-08 | Outpatient (CLI) | payer MEDICARE ==
[~2020-12-08] MED LIST changes: -BUPIVACAINE HCL 0.25% 10ML VIAL As Ordered ONE; -BUPIVACAINE HCL 0.25% 30ML VIAL As Ordered ONE; -TRIAMCINOLONE ACETONIDE SUSP 40 MG/ML VIAL (J3301) As Ordered ONE
== END ==
LOC: M PAIN 13:45
PROVIDERS: ATTEND Anesthesiology
DX: G89.29 Other chronic pain (principal); M79.18 Myalgia, other site; G43.909 Migraine, unspecified, not intractable, without status migrainosus; M50.10 Cervical disc disorder with radiculopathy, unspecified cervical region; M54.5 Low back pain; Z79.1 Long term (current) use of non-steroidal anti-inflammatories (NSAID); Z79.899 Other long term (current) drug therapy; Z88.0 Allergy status to penicillin

== ENCOUNTER → 2021-02-11 | Outpatient (CLI) | payer MEDICARE | LOC: M PAIN 09:00 | PROVIDERS: ATTEND Anesthesiology | DX: M79.18 Myalgia, other site (principal); M54.2 Cervicalgia; M54.50 Low back pain, unspecified; Z88.0 Allergy status to penicillin; Z79.899 Other long term (current) drug therapy ==

== ENCOUNTER → 2021-04-05 | Outpatient (CLI) | payer MEDICARE ==
[~2021-04-05] MED LIST changes: +BUPIVACAINE HCL 0.25% 10ML VIAL As Ordered ONE; +BUPIVACAINE HCL 0.25% 30ML VIAL As Ordered ONE; +TRIAMCINOLONE ACETONIDE SUSP 40 MG/ML VIAL (J3301) As Ordered ONE
== END ==
LOC: M PAIN 08:30
PROVIDERS: ATTEND Anesthesiology
DX: M79.18 Myalgia, other site (principal); G43.909 Migraine, unspecified, not intractable, without status migrainosus; Z88.0 Allergy status to penicillin; Z79.899 Other long term (current) drug therapy
CPT/HCPCS: 20553; J3301

== ENCOUNTER → 2021-05-18 | Outpatient (CLI) | payer MEDICARE ==
[~2021-05-18] MED LIST changes: -BUPIVACAINE HCL 0.25% 10ML VIAL As Ordered ONE; -BUPIVACAINE HCL 0.25% 30ML VIAL As Ordered ONE; -TRIAMCINOLONE ACETONIDE SUSP 40 MG/ML VIAL (J3301) As Ordered ONE
== END ==
LOC: M PAIN 09:30
PROVIDERS: ATTEND Nurse Practitioner Family
DX: M79.10 Myalgia, unspecified site (principal); G43.909 Migraine, unspecified, not intractable, without status migrainosus; Z88.0 Allergy status to penicillin; Z79.899 Other long term (current) drug therapy

== ENCOUNTER → 2021-08-03 | Outpatient (CLI) | payer MEDICARE ==
[~2021-08-03] MED LIST changes: +BUPIVACAINE HCL 0.25% 10ML VIAL As Ordered ONE; +BUPIVACAINE HCL 0.25% 30ML VIAL As Ordered ONE; +TRIAMCINOLONE ACETONIDE SUSP 40 MG/ML VIAL (J3301) As Ordered ONE
== END ==
LOC: M PAIN 09:00
PROVIDERS: ATTEND Anesthesiology
DX: M79.18 Myalgia, other site (principal); G43.909 Migraine, unspecified, not intractable, without status migrainosus; M50.13 Cervical disc disorder with radiculopathy, cervicothoracic region; M19.90 Unspecified osteoarthritis, unspecified site; M54.50 Low back pain, unspecified; Z79.899 Other long term (current) drug therapy; Z88.0 Allergy status to penicillin
CPT/HCPCS: 20552; J3301

== ENCOUNTER → 2021-09-21 | Outpatient (CLI) | payer MEDICARE ==
[~2021-09-21] MED LIST changes: -BUPIVACAINE HCL 0.25% 10ML VIAL As Ordered ONE; -BUPIVACAINE HCL 0.25% 30ML VIAL As Ordered ONE; -TRIAMCINOLONE ACETONIDE SUSP 40 MG/ML VIAL (J3301) As Ordered ONE
== END ==
LOC: M PAIN 09:15
PROVIDERS: ATTEND Nurse Practitioner Family
DX: M79.10 Myalgia, unspecified site (principal); G89.29 Other chronic pain; G43.909 Migraine, unspecified, not intractable, without status migrainosus; Z88.0 Allergy status to penicillin; Z79.899 Other long term (current) drug therapy

== ENCOUNTER → 2022-01-19 | Outpatient (CLI) | payer MEDICARE ==
[~2022-01-19] MED LIST changes: +BUPIVACAINE HCL 0.25% 10ML VIAL As Ordered ONE; +BUPIVACAINE HCL 0.25% 30ML VIAL As Ordered ONE; +TRIAMCINOLONE ACETONIDE SUSP 40 MG/ML VIAL (J3301) As Ordered ONE
== END ==
LOC: M PAIN 13:45
PROVIDERS: ATTEND Anesthesiology
DX: M79.18 Myalgia, other site (principal); G89.29 Other chronic pain; G43.909 Migraine, unspecified, not intractable, without status migrainosus; Z88.0 Allergy status to penicillin; Z79.899 Other long term (current) drug therapy
CPT/HCPCS: 20553; J3301

== ENCOUNTER → 2022-02-14 | Outpatient (CLI) | payer MEDICARE ==
[~2022-02-14] MED LIST changes: -BUPIVACAINE HCL 0.25% 10ML VIAL As Ordered ONE; -BUPIVACAINE HCL 0.25% 30ML VIAL As Ordered ONE; -TRIAMCINOLONE ACETONIDE SUSP 40 MG/ML VIAL (J3301) As Ordered ONE
== END ==
LOC: M TMPAIN 11:15 → M PAIN 11:15
PROVIDERS: ATTEND Nurse Practitioner Family
DX: M79.10 Myalgia, unspecified site (principal); G89.29 Other chronic pain; G43.909 Migraine, unspecified, not intractable, without status migrainosus; Z88.0 Allergy status to penicillin; Z79.899 Other long term (current) drug therapy

== ENCOUNTER → 2022-05-12 | Outpatient (CLI) | payer MEDICARE ==
[~2022-05-12] MED LIST changes: +BUPIVACAINE HCL 0.25% 10ML VIAL As Ordered ONE; +BUPIVACAINE HCL 0.25% 30ML VIAL As Ordered ONE; +TRIAMCINOLONE ACETONIDE SUSP 40MG/ML 1ML VIAL As Ordered ONE
== END ==
LOC: M PAIN 10:30
PROVIDERS: ATTEND Anesthesiology
DX: M79.18 Myalgia, other site (principal); G89.29 Other chronic pain; G43.909 Migraine, unspecified, not intractable, without status migrainosus; Z88.0 Allergy status to penicillin; Z79.899 Other long term (current) drug therapy

== ENCOUNTER → 2022-06-05 | Outpatient (CLI) | payer MEDICARE ==
[~2022-06-05] MED LIST changes: -BUPIVACAINE HCL 0.25% 10ML VIAL As Ordered ONE; -BUPIVACAINE HCL 0.25% 30ML VIAL As Ordered ONE; -TRIAMCINOLONE ACETONIDE SUSP 40MG/ML 1ML VIAL As Ordered ONE
== END ==
LOC: M PAIN 14:30
PROVIDERS: ATTEND Nurse Practitioner Family
DX: M79.10 Myalgia, unspecified site (principal); G89.29 Other chronic pain; G43.909 Migraine, unspecified, not intractable, without status migrainosus; Z88.0 Allergy status to penicillin; Z79.899 Other long term (current) drug therapy

== ENCOUNTER → 2022-06-29 | Outpatient (CLI) | payer MEDICARE ==
[~2022-06-29] MED LIST changes: +BUPIVACAINE HCL 0.25% 10ML VIAL As Ordered ONE; +BUPIVACAINE HCL 0.25% 30ML VIAL As Ordered ONE; +TRIAMCINOLONE ACETONIDE SUSP 40MG/ML 1ML VIAL As Ordered ONE
== END ==
LOC: M PAIN 09:30
PROVIDERS: ATTEND Anesthesiology
DX: M79.18 Myalgia, other site (principal); G89.29 Other chronic pain; G43.909 Migraine, unspecified, not intractable, without status migrainosus; Z88.0 Allergy status to penicillin; Z79.899 Other long term (current) drug therapy
CPT/HCPCS: 20552; J3301

== ENCOUNTER → 2022-08-14 | Outpatient (CLI) | payer MEDICARE ==
[~2022-08-14] MED LIST changes: -BUPIVACAINE HCL 0.25% 10ML VIAL As Ordered ONE; -BUPIVACAINE HCL 0.25% 30ML VIAL As Ordered ONE; -TRIAMCINOLONE ACETONIDE SUSP 40MG/ML 1ML VIAL As Ordered ONE
== END ==
LOC: M TMPAIN 14:45 → M PAIN 14:45
PROVIDERS: ATTEND Nurse Practitioner Family
DX: M79.10 Myalgia, unspecified site (principal); G89.29 Other chronic pain; G43.909 Migraine, unspecified, not intractable, without status migrainosus; Z88.0 Allergy status to penicillin; Z79.899 Other long term (current) drug therapy

== ENCOUNTER → 2022-10-31 | Outpatient (CLI) | payer MEDICARE ==
[~2022-10-31] MED LIST changes: -AMIT25TA17 PO; +AMIT25TA19 PO
== END ==
LOC: M PAIN 08:45
PROVIDERS: ATTEND Nurse Practitioner Family
DX: M79.10 Myalgia, unspecified site (principal); G89.29 Other chronic pain; G43.909 Migraine, unspecified, not intractable, without status migrainosus; Z88.0 Allergy status to penicillin; Z79.899 Other long term (current) drug therapy

== ENCOUNTER → 2022-11-17 | Outpatient (CLI) | payer MEDICARE | LOC: M PAIN 09:45 | PROVIDERS: ATTEND Nurse Practitioner Family | DX: M79.10 Myalgia, unspecified site (principal); G89.29 Other chronic pain; G43.909 Migraine, unspecified, not intractable, without status migrainosus; Z88.0 Allergy status to penicillin; Z79.899 Other long term (current) drug therapy ==

== ENCOUNTER → 2022-12-13 | Outpatient (CLI) | payer MEDICARE ==
[~2022-12-13] MED LIST changes: +TRIAMCINOLONE ACETONIDE SUSP 40MG/ML 1ML VIAL As Ordered ONE
== END ==
LOC: M PAIN 09:00
PROVIDERS: ATTEND Anesthesiology
DX: M79.18 Myalgia, other site (principal); G89.29 Other chronic pain; G43.909 Migraine, unspecified, not intractable, without status migrainosus; Z88.0 Allergy status to penicillin; Z79.899 Other long term (current) drug therapy
CPT/HCPCS: 20552; J0665; J3301

== ENCOUNTER → 2023-01-22 | Outpatient (CLI) | payer MEDICARE ==
[~2023-01-22] MED LIST changes: -TRIAMCINOLONE ACETONIDE SUSP 40MG/ML 1ML VIAL As Ordered ONE
== END ==
LOC: M PAIN 14:45
PROVIDERS: ATTEND Nurse Practitioner Family
DX: M79.10 Myalgia, unspecified site (principal); G89.29 Other chronic pain; Z88.0 Allergy status to penicillin; Z79.899 Other long term (current) drug therapy

== ENCOUNTER → 2023-03-05 | Outpatient (CLI) | payer MEDICARE | LOC: M PAIN 14:30 | PROVIDERS: ATTEND Nurse Practitioner Family | DX: M79.10 Myalgia, unspecified site (principal); G89.29 Other chronic pain; Z88.0 Allergy status to penicillin; Z79.899 Other long term (current) drug therapy ==

== ENCOUNTER → 2023-05-11 | Outpatient (CLI) | payer MEDICARE | LOC: M PAIN 11:45 | PROVIDERS: ATTEND Nurse Practitioner Family | DX: M79.12 Myalgia of auxiliary muscles, head and neck (principal); M79.18 Myalgia, other site; G89.29 Other chronic pain; G43.909 Migraine, unspecified, not intractable, without status migrainosus; M50.13 Cervical disc disorder with radiculopathy, cervicothoracic region; M54.50 Low back pain, unspecified; Z79.899 Other long term (current) drug therapy; Z88.0 Allergy status to penicillin ==

== ENCOUNTER → 2023-05-24 | Outpatient (CLI) | payer MEDICARE ==
[~2023-05-24] MED LIST changes: +TRIAMCINOLONE ACETONIDE SUSP 40MG/ML 1ML VIAL As Ordered ONE
== END ==
LOC: M PAIN 13:00
PROVIDERS: ATTEND Anesthesiology
DX: M79.18 Myalgia, other site (principal); G43.909 Migraine, unspecified, not intractable, without status migrainosus; M50.13 Cervical disc disorder with radiculopathy, cervicothoracic region; M19.90 Unspecified osteoarthritis, unspecified site; M54.50 Low back pain, unspecified; Z79.899 Other long term (current) drug therapy; Z88.0 Allergy status to penicillin
CPT/HCPCS: 20552; J0665; J3301

== ENCOUNTER → 2023-07-12 | Outpatient (CLI) | payer MEDICARE | LOC: M PAIN 08:30 | PROVIDERS: ATTEND Anesthesiology | DX: M79.18 Myalgia, other site (principal); M54.2 Cervicalgia; Z88.0 Allergy status to penicillin; Z79.02 Long term (current) use of antithrombotics/antiplatelets; Z79.1 Long term (current) use of non-steroidal anti-inflammatories (NSAID); Z79.891 Long term (current) use of opiate analgesic; Z79.899 Other long term (current) drug therapy | CPT/HCPCS: 20552; J0665; J3301 ==

== ENCOUNTER → 2023-09-10 | Outpatient (CLI) | payer MEDICARE ==
[~2023-09-10] MED LIST changes: -TRIAMCINOLONE ACETONIDE SUSP 40MG/ML 1ML VIAL As Ordered ONE
== END ==
LOC: M PAIN 14:30 → M TMPAIN 14:30
PROVIDERS: ATTEND Nurse Practitioner Family
DX: M79.10 Myalgia, unspecified site (principal); M50.13 Cervical disc disorder with radiculopathy, cervicothoracic region; G43.909 Migraine, unspecified, not intractable, without status migrainosus; M19.90 Unspecified osteoarthritis, unspecified site; M54.50 Low back pain, unspecified; Z79.899 Other long term (current) drug therapy; Z79.1 Long term (current) use of non-steroidal anti-inflammatories (NSAID); Z88.0 Allergy status to penicillin

== ENCOUNTER → 2023-11-13 | Outpatient (CLI) | payer MEDICARE ==
[~2023-11-13] MED LIST changes: +TRIAMCINOLONE ACETONIDE SUSP 40MG/ML 1ML VIAL As Ordered ONE
== END ==
LOC: M PAIN 10:00
PROVIDERS: ATTEND Anesthesiology
DX: M79.10 Myalgia, unspecified site (principal); Z79.02 Long term (current) use of antithrombotics/antiplatelets; Z79.1 Long term (current) use of non-steroidal anti-inflammatories (NSAID); Z79.899 Other long term (current) drug therapy; Z88.0 Allergy status to penicillin
CPT/HCPCS: 20552; J0665; J3301

== ENCOUNTER → 2023-12-31 | Outpatient (CLI) | payer MEDICARE ==
[~2023-12-31] MED LIST changes: -TRIAMCINOLONE ACETONIDE SUSP 40MG/ML 1ML VIAL As Ordered ONE
== END ==
LOC: M PAIN 16:30
PROVIDERS: ATTEND Nurse Practitioner Family
DX: G89.29 Other chronic pain (principal); M79.10 Myalgia, unspecified site; G43.909 Migraine, unspecified, not intractable, without status migrainosus; M50.10 Cervical disc disorder with radiculopathy, unspecified cervical region; M54.50 Low back pain, unspecified; M19.90 Unspecified osteoarthritis, unspecified site; Z79.899 Other long term (current) drug therapy; Z79.1 Long term (current) use of non-steroidal anti-inflammatories (NSAID); Z88.0 Allergy status to penicillin

== ENCOUNTER → 2024-04-03 | Outpatient (CLI) | payer MEDICARE | LOC: M PAIN 17:00 | PROVIDERS: ATTEND Nurse Practitioner Family | DX: M79.18 Myalgia, other site (principal); G89.29 Other chronic pain; G43.909 Migraine, unspecified, not intractable, without status migrainosus; M50.13 Cervical disc disorder with radiculopathy, cervicothoracic region; M19.90 Unspecified osteoarthritis, unspecified site; M54.50 Low back pain, unspecified; Z79.82 Long term (current) use of aspirin; Z79.899 Other long term (current) drug therapy; Z88.0 Allergy status to penicillin ==

== ENCOUNTER → 2024-05-09 | Outpatient (CLI) | payer MEDICARE ==
[~2024-05-09] MED LIST changes: +TRIAMCINOLONE ACETONIDE SUSP 40MG/ML 1ML VIAL As Ordered ONE
== END ==
LOC: M PAIN 12:30
PROVIDERS: ATTEND Anesthesiology
DX: M79.18 Myalgia, other site (principal); G89.29 Other chronic pain; G43.909 Migraine, unspecified, not intractable, without status migrainosus; M50.10 Cervical disc disorder with radiculopathy, unspecified cervical region; M54.50 Low back pain, unspecified; Z79.82 Long term (current) use of aspirin; Z79.899 Other long term (current) drug therapy; Z88.0 Allergy status to penicillin
CPT/HCPCS: 20552; J0665; J3301